=== PATIENT | male | born 1925 | race Caucasian/White ===

== ENCOUNTER 2017-01-10 09:25 | Inpatient (IN) ==
--- NOTE | 2017-01-10 10:11 | EKG Report ---
Stationary ECG Study [facility] ER Test Date: 01/10/2017 9:41:16 AM Pat Name: ROSELINE FRANCO Department: Room: Gender: M It Programmer: : 1925 Requested by: Carlos Molina Order Number: [id number] Jess MD: GARETH GUALLPA Intervals [place] Rate: 69 P: 56 OR: 114 QRS: 78 QRSD: 86 T: 85 QT: 370 QTc: 389 Interpretive Statements SINUS RHYTHM WITH SHORT OR INTERVAL ATYPICAL ECG Electronically Signed On 01-11-17 17:04:30 CDT by GARETH GUALLPA [id number]
[2017-01-10 10:19] LABS: Basophils % 0.2 % (0.0-0.8); Eosinophils % 0.1 % (0.00-10.9); Hematocrit 40.4 VOL% (42.0-52.0); Hemoglobin 13.3 GM/DL (14.0-18.0); Immature Granulocytes % 0.5 %; Immature Granulocytes Absolute 0.05 #; Lymphocytes # 0.8 10*3/uL (1.4-4.0); Lymphocytes % 8.5 % (21.2-54.2); Mean Corpuscular HGB Conc 32.9 GM/DL (32-36); Mean Corpuscular Hemoglobin 31 PG (27-34); Mean Corpuscular Volume 93.7 FL (87-102); Mean Platelet Volume 10.8 FL (9.6-12.0); Monocytes # 0.7 10*3/uL (0.11-0.8); Monocytes % 7.4 % (1.7-12.7); Neutrophils # 7.8 10*3/uL (1.4-7.4); Neutrophils % 83.3 % (38.7-73.9); Platelet Count 216 T/CUMM (130-400); Red Blood Count 4.31 MC/CUMM (3.8-5.5); Red Cell Distribution Width 14.2 % (9.3-17.3); White Blood Count 9.4 T/CUMM (4-12)
[2017-01-10 10:29] LABS: INR 1.1; PT Patient Result 11.7 SECS; Partial Thromboplastin Time 28.3 SECS (0-40)
[2017-01-10] MEDS ORDERED: SODIUM CHLORIDE 0.9% 500 ML IV STA (10:52)
[2017-01-10 11:05] LABS: Albumin 2.9 G/DL (3.4-5.0); Bilirubin,Total 0.6 MG/DL (0.2-1.0); Calcium 8.8 MG/DL (8.5-10.1); Osmolality,Calculated 291.1 MOS/KG (273-304); Potassium 4.4 MMOL/L (3.5-5.1); Total Protein 6.4 G/DL (6.4-8.3)
--- NOTE | 2017-01-10 11:19 | Emergency Department Note ---
Akash Saez Hilary, am scribing for, and in the presence of, Carlos Mcmanus MD 10:06. Marietta Saez Phillip K, MD, personally performed the services described in this documentation, ascribed by Amber Bustos in my presence, and it is both accurate and complete . Arrival - Arrival Chief Complaint: Dizziness Stated Complaint: dizzy ED Nursing Triage Note: pt has been dizzy and sob. pt is being worked up by his heart dr and was told to come here to be admitted Mode of Arrival: Wheelchair Limitations: No Limitations Source: Patient, RN Notes Reviewed Time Seen by Provider: 01/10/17 09:54 - History of Present Illness HPI Narrative: Pt is a 89 y/o male presenting to the ED with c/o dizziness and SOB which onset a few weeks ago and has worsened. Pt reports that his dizziness has been worsening and is worse upon movement. He confirms trouble walking, dizziness, and SOB but denies nausea, vomiting, blacking out or chest pain. Pt talked to Dr. Foster this morning and she told them to come in today to be admitted. No other complaints or problems stated in the ED. patient has had multiple workups over the last 3 weeks for his dizziness including CT head scans and labs. All of which showed no etiology of his dizziness. Patient is tilt positive in the ED. His pressure dropped to 90/46 when we stood him up. His pulse went from 71-89 on standing also Onset (ago): week(s) Consistency: intermittent Severity: moderate Severity scale (1-10): 2 Allergies/Adverse Reactions: Allergies Allergy/AdvReac Type Severity Reaction Status Date / Time No Known Allergies Allergy Unverified 01/09/17 06:23 Home Medications: Home Medications Medication Instructions Recorded Confirmed Type Azelastine Nasal 137 Mcg/[place] 1 spray BOTH NARES BID 01/31/15 01/10/17 History [Astelin Nasal [place]] Fluticasone 50 Mcg Nasal [place] 1 spray BOTH NARES QAM 01/31/15 01/10/17 History [Flonase Nasal [place]] Warfarin Sodium 2.5 mg PO QPM 01/31/15 01/10/17 History Review of System - Review of System 12 point system: reviewed and no additional remarkable complaints except as stated - Review of System Constitutional: Present: other (Dizziness). Absent: fever Respiratory: Present: respiratory distress (SOb) Cardiovascular: Absent: chest pain, syncope Gastrointestinal: Absent: nausea, vomiting Neurological: Present: abnormal gait (trouble walking), other (dizziness). Absent: headache Medical,Surgical,& Family Hx - Medical History Cardio: History of: Cardiac Dysrhythmia (AFIB X1), PVD (DVT) Neurology: No history of: Seizures HEENT: History of: Ear Problem (HEARING AIDS), Eye Problem (GLASSES) Other: History of: Skin Problems (multiple skin cancers) - Surgical History Reproductive Surgeries: Surgical HX of;: Prostate Surgery - Social History Smoking Status: Never smoker Frequency of Alcohol Use: None Type of Drug Use: None Exam Vital Signs: Vital Signs Temperature 97.6 F 01/10/17 09:30 Pulse Rate 81 01/10/17 09:30 Respiratory Rate 18 01/10/17 09:30 Blood Pressure 110/58 01/10/17 09:30 O2 Sat by Pulse Oximetry 98 01/10/17 09:30 - General General appearance: alert, in no apparent distress - Head Head exam: Present: atraumatic, normocephalic - Eye Eye exam: Present: EOMI. Absent: normal appearance, PERRL (Rt pupil doesn't react, chronic) - ENT ENT exam: Present: mucous membranes moist, TM's normal bilaterally. Absent: mucous membranes dry - Neck Neck exam: Present: full ROM, trachea midline. Absent: tenderness - Chest Chest inspection: Present: symmetric chest wall rise. Absent: tenderness - Respiratory Respiratory exam: Present: rales (bibasillar) - Cardiovascular Cardiovascular exam: Present: regular rate, normal rhythm, normal heart sounds. Absent: murmur, rubs, gallop - Abdominal Exam Abdominal exam: Present: soft, normal bowel sounds. Absent: distention, tenderness - Extremities Exam Extremities exam: Present: full ROM, pedal edema (1+ pedal edema bilaterally, mild stenosis to feet bilaterally; somewhat cool). Absent: tenderness - Back Exam Back exam: Present: full ROM. Absent: tenderness - Neurological Exam Neurological exam: Present: alert, oriented X3, CN II-XII intact. Absent: motor sensory deficit - Psychiatric Psychiatric exam: Present: normal affect, normal mood - Skin Skin exam: Present: warm, dry, intact, normal color. Absent: rash Results - Labs CBC & BMP: 06/06/17 10:06 Lab Results: I have reviewed the patients labs Labs: Laboratory Tests 01/10/17 01/10/17 10:06 10:06 WBC 9.4 RBC 4.31 Hgb 13.3 L Hct 40.4 L Neut % (Auto) 83.3 H Lymph % (Auto) 8.5 L Neut # (Auto) 7.8 H Lymph # (Auto) 0.8 L INR 1.1 PT Patient/Control Mix 11.7 Circ Anticoag PTT 28.3 - EKG EKG results: interpreted by ERMD, sinus rhythm (Nonspecific ST-T changes) Disposition Clinical Impression: Orthostatic hypotension, Dizziness Case discussed with: patient, patient's family Disposition: Still a Patient Condition: Guarded Additional Instructions: We will admit to Dr. Holliday for further workup.
[2017-01-10] MEDS ORDERED: ACETAMINOPHEN 325 MG TABLET PO PRN (15:09)
[2017-01-10] MEDS ORDERED: ZALEPLON 5 MG CAPSULE PO PRN (15:09)
[2017-01-10] MEDS ORDERED: MORPHINE 2 MG/1 ML SYRINGE IV PRN (15:09)
[2017-01-10] MEDS ORDERED: DOCUSATE SODIUM 100 MG CAPSULE PO PRN (15:09)
[2017-01-10] MEDS ORDERED: ONDANSETRON 4 MG/2 ML VIAL IV PRN (15:09)
[2017-01-10] MEDS ORDERED: MAGNESIUM SULF RIDER 4 GM in PREMIX 1 EACH IV PRN (15:11)
[2017-01-10] MEDS ORDERED: MAGNESIUM SULF RIDER 2 GM in PREMIX 1 EACH IV PRN (15:11)
[2017-01-10] MEDS ORDERED: SODIUM CHLORIDE 0.45% 1,000 ML IV SCH (15:30)
--- NOTE | 2017-01-10 15:41 | EKG Report ---
Stationary ECG Study 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
[2017-01-10] MEDS: ENOXAPARIN 40 MG/0.4 ML SYRINGE SUBCUT SCH (15:51)
[2017-01-10 20:22] LABS: Apearance,Urine Slightly Hazy (Clear); Bilirubin,Urine Negative (Negative); Blood, Urine Large mg/dL (Negative); Glucose,Urine (UA) Negative (Negative); Ketones,Urine Negative (Negative); Mucus,Urine Occasional /LPF (Occasional); Nitrite,Urine Negative (Negative); Protein,Urine Negative; RBC,Urine 33 /HPF (0-4); Squamous Epithelial Cell,Urine Occasional /HPF (0-10); Urine Color Yellow (Yellow); Urine Specific Gravity 1.012 (1.001-1.035); Urine Urobilinogen < 2.0 EU/DL (0.2-1.0); WBC,Urine 13 /HPF (0-6)
[2017-01-10] MEDS: AZELASTINE NASAL 137 MCG/SPRAY 30 ML BOTTLE BOTH NARES SCH (21:01)
--- NOTE | 2017-01-11 00:11 | Cardiology History & Physical ---
I, Naz Johnson RN, am scribing for, and in the presence of, Davie Holliday MD 00:08. Assessment and Plan - Time spent with patient Time spent with patient: Greater than 30 minutes (Due to assessment, planning, documentation, medication review) (1) Dizziness Status: Acute Assessment and plan: On discussing with the patient, there does seem to be a clear component of his dizziness being related to standing. On exam in the ER his blood pressure did drop. His symptoms are related. It appears A. fib is not the cause of his symptoms--I.e., he has symptoms and is in sinus rhythm This sounds like orthostatic hypotension We'll give a trial of more liberal use of salt, Florinef, and see if he improves Check orthostatic blood pressures Use AVA avery I reviewed his recent workup-carotid u/ sound, negative, echo good LVEF, stress test no obvious ischemia, one equivocal area No symptoms of ischemia so we'll not do a heart catheter at this time I conferred care with Dr. Bess Foster, his primary distribution spec, Gave her input and suggestions. The above was discussed with the patient, his daughter, his grandson. They voice understanding and agree with the plan. Of note, I saw the patient on 01/10 at about 5 PM. This note is being done later. 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 Foster Mr. Mart is a 89 year old male who was seen by Dr. Foster in the emergency department on December 30 of this year for dizziness and indigestion. He had no prior cardiac history. 2 days prior to this he has been seen in the emergency room and was noted to have paroxysmal atrial fibrillation with rate that was not particularly fast. He spontaneously converted to sinus rhythm. He had Holter monitor placed that showed less than 1% of the events were atrial fibrillation. There were occasional PACs and PVCs noted. As an outpatient he had an echocardiogram done January 04 that showed ejection fraction 55%. Carotid ultrasound done the same day showed 1-39% stenosis in the proximal left and right internal carotid arteries. Nuclear stress test done January 05 showed no evidence of ischemia but was suggestive of low to moderate risk for future cardiovascular events. He showed small fixed perfusion abnormality of mild intensity in the apical anterior segment, apical septal segment, and inferior lateral region. Other history includes prostate cancer, respiratory problems, skin cancers, and DVT. He is chronically anticoagulated on Coumadin. This is been held recently as he had lithotripsy yesterday. He is to restart his Coumadin later this week. Surgical history includes prostate surgery, tonsillectomy, hernia repair, bilateral cataracts. He is unsure of any family history except for a sister with cancer. He reports he is a lifetime non- smoker. He reports he has been having dizziness, weakness, and dyspnea on exertion for several months that has progressively gotten worse. This morning he also became short of breath at rest and presented to the emergency department for further evaluation. EKG done today showed sinus rhythm heart rate of 69. His vital signs have been stable. Blood pressure was noted to drop orthostatically , 119/57 lying 90/46 standing. He was given a 500 cc bolus of IV fluid in the emergency department. His creatinine is elevated at 2.00, we will continue to monitor. His INR is 1.1, he is currently off his Coumadin because of lithotripsy. He is scheduled to restart later this week. He is seen today in the emergency department in no acute distress. He is resting on stretcher and denies any dizziness or shortness of breath. He states that he were to get up and try to walk he would be dizzy and weak. He denies any chest pain or palpitations. He is currently in sinus rhythm with heart rates in the 70s. Oxygen is in use via nasal cannula, O2 sat 99%. Blood pressure is currently 117/55. Home Medications Medication Instructions Recorded Confirmed Type Azelastine Nasal 137 Mcg/[place] 1 spray BOTH NARES BID 01/31/15 01/10/17 History [Astelin Nasal [place]] Fluticasone 50 Mcg Nasal [place] 1 spray BOTH NARES QAM 01/31/15 01/10/17 History [Flonase Nasal [place]] Warfarin Sodium 2.5 mg PO QPM 01/31/15 01/10/17 History Clotrimazole/Betamethasone Dip 15 gm TOP BID 01/10/17 01/10/17 History [Clotrimazole/Betamethasone Cream] Tamsulosin [Flomax] 0.4 mg PO BEDTIME 01/10/17 01/10/17 History Allergies Allergy/AdvReac Type Severity Reaction Status Date / Time No Known Allergies Allergy Unverified 01/09/17 06:23 - Constitutional Constitutional: Present: as per HPI - EENT Eyes: Present: loss of vision, requires corrective lense Ears: Present: decreased hearing Nose, mouth and throat: Present: hoarseness, sore throat. Absent: dysphagia, epistaxis, headache(s), neck pain - Cardiovascular Cardiovascular: Present: dyspnea, dyspnea on exertion, lightheadedness. Absent : chest pain at rest, chest pain with activity, diaphoresis, edema, radiating jaw, neck or arm pain, orthopnea, palpitations - Respiratory Respiratory: Present: dyspnea, dyspnea on exertion. Absent: cough, hemoptysis, wheezing - Gastrointestinal Gastrointestinal: Present: constipation. Absent: abdominal pain, diarrhea, hematemesis, hematochezia, melena, nausea, vomiting - Genitourinary Genitourinary: Absent: dysuria, hematuria - Musculoskeletal Musculoskeletal: Present: back pain, limited range of motion, muscle weakness - Neurological Neurological: Present: abnormal gait, dizziness. Absent: confusion, headache(s) , syncope - Psychiatric Psychiatric: Absent: anxiety, depression - Endocrine Endocrine: Present: fatigue - Hematologic/Lymphatic Hematologic/Lymphatic: Present: easy bleeding, easy bruising Medical,Surgical,& Family Hx - Medical History Cardio: History of: Cardiac Dysrhythmia (AFIB ), PVD (DVT) HEENT: History of: Ear Problem (HEARING AIDS), Eye Problem (GLASSES) Other: History of: Cancer (Prostate), Skin Problems (multiple skin cancers) - Surgical History Thoracic Surgeries: Surgical HX of;: Lithotripsy HEENT Surgeries: Surgical HX of: Eye Surgery (Bilateral cataracts), Tonsilectomy & Adenoidectomy Abdominal Surgeries: Surgical HX of: Hernia Repair Reproductive Surgeries: Surgical HX of;: Prostate Surgery - Family History Family History: Reports;: Family Cancer (Sister) - Social History Smoking Status: Never smoker Have you smoked in the last 12 months: No Frequency of Alcohol Use: None Type of Drug Use: None Functional capacity: uses cane/walker Cardiology Physical Exam - Constitutional Vitals: Vital Signs Temp Pulse Resp BP Pulse Ox 97.6 F 71 18 119/57 98 01/10/17 09:40 01/10/17 10:03 01/10/17 09:40 01/10/17 10:03 01/10/17 09:30 Intake and Output 01/09/17 01/10/17 01/10/17 22:59 06:59 14:59 Other: Weight 185 lb Patient Weight 01/11/17 06:59 Weight 185 lb General appearance: normal weight, no acute distress - Head Head exam: Absent: abrasion, contusion - Eye Eye exam: Absent: periorbital swelling, laceration to eyelids Pupils: Absent: constricted, dilated - Neck Neck exam: Absent: tenderness - Respiratory Respiratory exam: Present: rales, other (Oxygen via nasal cannula). Absent: wheezes - Cardiovascular Cardiovascular exam: Present: regular rate and rhythm. Absent: gallop, rubs - GI/Abdominal GI/Abdominal exam: Present: normal bowel sounds. Absent: tenderness, soft - Extremities Exam Extremities exam: Present: edema (Bilateral lower extremities, decreased pulses) - Neurological Exam Neurological exam: Present: alert, oriented X3 - Psychiatric Psychiatric exam: Present: normal affect, normal mood - Skin Skin exam: Present: warm, dry Result/EKG - Labs CBC & BMP: 01/10/17 10:06 01/10/17 10:06 Lab Results: I have reviewed the past 24 hour labs Labs: Laboratory Results - last 24 hr 01/10/17 01/10/17 01/10/17 10:06 10:06 10:06 WBC 9.4 RBC 4.31 Hgb 13.3 L Hct 40.4 L MCV 93.7 MCH 31 MCHC 32.9 RDW 14.2 Plt Count 216 MPV 10.8 Neut % (Auto) 83.3 H Lymph % (Auto) 8.5 L Crawford % (Auto) 7.4 Eos % (Auto) 0.1 Baso % (Auto) 0.2 Neut # (Auto) 7.8 H Lymph # (Auto) 0.8 L Crawford # (Auto) 0.7 Eos # (Auto) 0.0 Baso # (Auto) 0.0 Immature Gran % 0.5 Nucleated RBC % 0.0 Immature Gran # 0.05 Nucleated RBCs # 0.00 INR 1.1 PT Patient/Control Mix 11.7 Circ Anticoag PTT 28.3 Sodium 142 Potassium 4.4 Chloride 108 H Carbon Dioxide 24 Anion Gap 14.4 BUN 30 H Creatinine 2.00 H GFR Calculation 34 BUN/Creatinine Ratio 15.00 Glucose 147 H Calculated Osmolality 291.1 Calcium 8.8 Total Bilirubin 0.60 AST 15 ALT 20 Alkaline Phosphatase 67 B-Natriuretic Peptide Total Protein 6.4 Albumin 2.9 L Globulin 3.5 Albumin/Globulin Ratio 0.8 L 01/10/17 10:06 WBC RBC Hgb Hct MCV MCH MCHC RDW Plt Count MPV Neut % (Auto) Lymph % (Auto) Crawford % (Auto) Eos % (Auto) Baso % (Auto) Neut # (Auto) Lymph # (Auto) Crawford # (Auto) Eos # (Auto) Baso # (Auto) Immature Gran % Nucleated RBC % Immature Gran # Nucleated RBCs # INR PT Patient/Control Mix Circ Anticoag PTT Sodium Potassium Chloride Carbon Dioxide Anion Gap BUN Creatinine GFR Calculation BUN/Creatinine Ratio Glucose Calculated Osmolality Calcium Total Bilirubin AST ALT Alkaline Phosphatase B-Natriuretic Peptide 118 H Total Protein Albumin Globulin Albumin/Globulin Ratio - EKG EKG results: interpreted by me EKG shows: sinus rhythm IMiya Dale, MD, personally performed the services described in this documentation, ascribed by Naz Johnson RN in my presence, and it is both accurate and complete .
[2017-01-11] MEDS: FLUDROCORTISONE 0.1 MG TABLET PO SCH ×3 (00:47→21:09)
[2017-01-11 05:21] LABS: Basophils % 0.3 % (0.0-0.8); Eosinophils % 0.1 % (0.00-10.9); Hematocrit 36.2 VOL% (42.0-52.0); Immature Granulocytes % 0.4 %; Immature Granulocytes Absolute 0.03 #; Lymphocytes # 1.1 10*3/uL (1.4-4.0); Mean Corpuscular HGB Conc 33.1 GM/DL (32-36); Mean Corpuscular Hemoglobin 31 PG (27-34); Mean Corpuscular Volume 93.8 FL (87-102); Mean Platelet Volume 10.8 FL (9.6-12.0); Monocytes # 0.6 10*3/uL (0.11-0.8); Monocytes % 7.9 % (1.7-12.7); Neutrophils # 6.1 10*3/uL (1.4-7.4); Neutrophils % 77.3 % (38.7-73.9); Platelet Count 185 T/CUMM (130-400); Red Blood Count 3.86 MC/CUMM (3.8-5.5); Red Cell Distribution Width 14.3 % (9.3-17.3); White Blood Count 7.9 T/CUMM (4-12)
[2017-01-11 05:35] LABS: INR 1.1; PT Patient Result 11.5 SECS
[2017-01-11 06:05] LABS: Calcium 7.9 MG/DL (8.5-10.1); Magnesium 2.1 MG/DL (1.8-2.4); Osmolality,Calculated 289.1 MOS/KG (273-304); Potassium 4.2 MMOL/L (3.5-5.1)
[2017-01-11 06:11] LABS: Albumin 2.4 G/DL (3.4-5.0); Bilirubin,Total 0.8 MG/DL (0.2-1.0); Calcium 7.9 MG/DL (8.5-10.1); Osmolality,Calculated 289.1 MOS/KG (273-304); Potassium 4.4 MMOL/L (3.5-5.1); Risk Ratio 3.62; Total Protein 5.6 G/DL (6.4-8.3)
--- NOTE | 2017-01-11 07:53 | EKG Report ---
Stationary ECG Study [facility] Test Date: 01/11/2017 7:52:56 AM Pat Name: ROSELINE FRANCO Department: Room: 287 Gender: M Radiology Physician Assistant: LINDA : 1925 Requested by: Diamond Chase Order Number: [id number] Jess MD: GARETH GUALLPA Intervals [place] Rate: 58 P: 41 NM: 128 QRS: 58 QRSD: 90 T: 54 QT: 424 QTc: 420 Interpretive Statements SINUS RHYTHM WITH OCCASIONAL SUPRAVENTRICULAR PREMATURE COMPLEXES INTERPRETATION BASED ON A DEFAULT AGE OF 40 YEARS Electronically Signed On 01-11-17 17:09:49 CDT by GARETH GUALLPA [id number]
[2017-01-11] MEDS: PANTOPRAZOLE 40 MG TABLET PO SCH (08:36)
[2017-01-11] MEDS: CLOTRIMAZOLE/BETAMETHASONE CREAM 15 GM TUBE TOP SCH ×2 (08:42→21:10)
[2017-01-11] MEDS: FLUTICASONE 50 MCG NASAL SPRAY 16 GM BOTTLE BOTH NARES SCH (08:42)
[2017-01-11] MEDS: AZELASTINE NASAL 137 MCG/SPRAY 30 ML BOTTLE BOTH NARES SCH ×2 (08:42→21:10)
[2017-01-11] MEDS: ENOXAPARIN 40 MG/0.4 ML SYRINGE SUBCUT SCH (16:05)
--- NOTE | 2017-01-11 16:47 | Neurology Consult Note ---
History of Present Illness History of present illness: Mr. Mart is a 89 year old right-handed white who was was admitted through the emergency department with dizziness. He had no prior cardiac history. 2 days prior to this he has been seen in the emergency room and was noted to have paroxysmal atrial fibrillation with rate that was not particularly fast. He spontaneously converted to sinus rhythm. He had Holter monitor placed that showed less than 1% of the events were atrial fibrillation. There were occasional PACs and PVCs noted. As an outpatient he had an echocardiogram done January 04 that showed ejection fraction 55%. Carotid ultrasound done the same day showed 1-39% stenosis in the proximal left and right internal carotid arteries. Nuclear stress test done January 05 showed no evidence of ischemia but was suggestive of low to moderate risk for future cardiovascular events. Other history includes prostate cancer, respiratory problems, skin cancers, and DVT. He is chronically anticoagulated on Coumadin. This is been held recently as he had lithotripsy yesterday. He is to restart his Coumadin later this week. Surgical history includes prostate surgery, tonsillectomy, hernia repair, bilateral cataracts. He is unsure of any family history except for a sister with cancer. He reports he is a lifetime non-smoker. He reports he has been having dizziness, weakness, and dyspnea on exertion for several months that has progressively gotten worse. This morning he also became short of breath at rest and presented to the emergency department for further evaluation. EKG done today showed sinus rhythm heart rate of 69. His vital signs have been stable. Blood pressure was noted to drop orthostatically, 119/57 lying 90/46 standing. He was started on Florinef and he seems to be doing better. Home Medications Medication Instructions Recorded Confirmed Type Azelastine Nasal 137 Mcg/[place] 1 spray BOTH NARES BID 01/31/15 01/10/17 History [Astelin Nasal [place]] Fluticasone 50 Mcg Nasal [place] 1 spray BOTH NARES QAM 01/31/15 01/10/17 History [Flonase Nasal [place]] Warfarin Sodium 2.5 mg PO QPM 01/31/15 01/10/17 History Clotrimazole/Betamethasone Dip 15 gm TOP BID 01/10/17 01/10/17 History [Clotrimazole/Betamethasone Cream] Tamsulosin [Flomax] 0.4 mg PO BEDTIME 01/10/17 01/10/17 History Allergies Allergy/AdvReac Type Severity Reaction Status Date / Time No Known Allergies Allergy Unverified 01/09/17 06:23 12 point system: reviewed and no additional remarkable complaints except as stated Medical,Surgical,& Family Hx - Medical History Cardio: History of: Cardiac Dysrhythmia (AFIB ), PVD (DVT) Neurology: No history of: Seizures HEENT: History of: Ear Problem (HEARING AIDS), Eye Problem (GLASSES) Gastrointestinal: History of: GERD, GI Problems (constipation) Musculoskeletal: History of: Musculoskeletal Problems (left hip need replacement ) Other: History of: Cancer (Prostate), Skin Problems (multiple skin cancers) - Surgical History Thoracic Surgeries: Surgical HX of;: Lithotripsy HEENT Surgeries: Surgical HX of: Eye Surgery (Bilateral cataracts), Tonsilectomy & Adenoidectomy Abdominal Surgeries: Surgical HX of: Hernia Repair Reproductive Surgeries: Surgical HX of;: Prostate Surgery - Family History Family History: Reports;: Family Cancer (Sister), Family Heart Disease, Family Hypertension - Social History Smoking Status: Never smoker Frequency of Alcohol Use: None Type of Drug Use: None Exam - Constitutional Vitals: Period Temp Pulse Resp BP Sys/[place] Pulse Ox Last 24 Hr 97.3 F-97.7 F 56-66 18-20 117-139/56-73 93-98 Exam: GENERAL: Patient is in no acute distress. NECK: Neck is supple. There is no JVD. No carotid bruits present. No thyroid masses. CVS: First and second heart sounds are normal. There is no S3 present. Regular rate and rhythm. RESPIRATORY: Lungs are clear to auscultation without any rales or rhonchi. ABDOMEN: Soft and non-tender. Bowel sounds are present. There is no hepatosplenomegaly. EXT: There is no palpable edema. Peripheral pulses are present. Skin: No rashes Central Nervous system: General: Alert, awake and Oriented x 3 Speech: Fluent Comprehension: Intact and normal Facial expressions: Normal Cranial Nerves: CN1/Olfactory: Normal CN II/ Optic: Normal, Visual Pierre unreliable CN III, and : RASHID & EOMI CN V: Normal & intact CN VII: face is symmetric CNVIII: Normal CN XI/X/XI/XII: Intact and Normal Motor: Bulk and Tone is normal. Strength in the right 5/5 Strength in the left 5/5 Sensory: Grossly intact for all the modalities of PP, LT and temp sense Reflexes: 1+ and symmetrical Cerebellar function: Normal finger to nose and heel to peñaloza testing. Toes: Equivocal Gait: Able to get up and walk a few steps. Results - Labs CBC & BMP: 01/11/17 05:10 01/11/17 05:10 Assessment and Plan (1) Dizziness Status: Acute Assessment and plan: This is getting better. This is most likely due to orthostatic hypotension. No clear evidence of posterior circulation pathology. Current Visit: No (2) Orthostatic hypotension Status: Acute Assessment and plan: Continue [facility] for now Thank you for the consult Current Visit: Yes
[2017-01-11] MEDS ORDERED: WARFARIN 2.5 MG TABLET PO SCH (18:00)
[2017-01-11] MEDS: TAMSULOSIN 0.4 MG CAPSULE PO SCH (21:09)
[2017-01-12 05:54] LABS: Basophils % 0.3 % (0.0-0.8); Eosinophils % 0.3 % (0.00-10.9); Hematocrit 34.5 VOL% (42.0-52.0); Hemoglobin 11.3 GM/DL (14.0-18.0); Immature Granulocytes % 0.7 %; Immature Granulocytes Absolute 0.04 #; Mean Corpuscular HGB Conc 32.8 GM/DL (32-36); Mean Corpuscular Hemoglobin 31 PG (27-34); Mean Corpuscular Volume 93.2 FL (87-102); Mean Platelet Volume 11.6 FL (9.6-12.0); Monocytes # 0.7 10*3/uL (0.11-0.8); Neutrophils # 4.2 10*3/uL (1.4-7.4); Neutrophils % 70.7 % (38.7-73.9); Platelet Count 196 T/CUMM (130-400); Red Cell Distribution Width 14.4 % (9.3-17.3); White Blood Count 5.9 T/CUMM (4-12)
[2017-01-12 06:27] LABS: Calcium 8.3 MG/DL (8.5-10.1); Osmolality,Calculated 293.7 MOS/KG (273-304); Potassium 4.1 MMOL/L (3.5-5.1)
[2017-01-12 06:36] LABS: Albumin 2.3 G/DL (3.4-5.0); Bilirubin,Total 0.5 MG/DL (0.2-1.0); Calcium 8.3 MG/DL (8.5-10.1); Osmolality,Calculated 288.1 MOS/KG (273-304); Potassium 3.9 MMOL/L (3.5-5.1); Total Protein 5.1 G/DL (6.4-8.3)
[2017-01-12] MEDS ORDERED: DIGOXIN 0.5 MG/2 ML AMP IV ONE (08:07)
[2017-01-12] MEDS ORDERED: WARFARIN 2.5 MG TABLET PO ONE (08:12)
--- NOTE | 2017-01-12 09:17 | EKG Report ---
Stationary ECG Study [facility] Test Date: 01/12/2017 9:16:34 AM Pat Name: ROSELINE FRANCO Department: Room: 287 Gender: M Site Coordinator: LINDA : 1925 Requested by: Neal Holliday Order Number: [id number] Reading MD: NEAL HOLLIDAY Intervals [place] Rate: 78 P: 52 ND: 136 QRS: 59 QRSD: 90 T: 91 QT: 360 QTc: 393 Interpretive Statements SINUS RHYTHM WITH OCCASIONAL SUPRAVENTRICULAR PREMATURE COMPLEXES POSSIBLE LEFT ATRIAL ENLARGEMENT MODERATE ST DEPRESSION Electronically Signed On 01-12-17 13:49:59 CDT by NEAL HOLLIDAY [email or web address]
[2017-01-12] MEDS: FLUDROCORTISONE 0.1 MG TABLET PO SCH ×2 (09:30→21:31)
[2017-01-12] MEDS: AZELASTINE NASAL 137 MCG/SPRAY 30 ML BOTTLE BOTH NARES SCH ×2 (09:31→21:30)
[2017-01-12] MEDS: FLUTICASONE 50 MCG NASAL SPRAY 16 GM BOTTLE BOTH NARES SCH (09:31)
[2017-01-12] MEDS: PANTOPRAZOLE 40 MG TABLET PO SCH (09:31)
[2017-01-12] MEDS: CLOTRIMAZOLE/BETAMETHASONE CREAM 15 GM TUBE TOP SCH ×2 (09:31→21:31)
[2017-01-12] MEDS: SOTALOL 80 MG TABLET PO SCH ×3 (10:25→17:24)
--- NOTE | 2017-01-12 13:39 | Cardiology Progress Note ---
I, Naz Johnson RN, am scribing for, and in the presence of, Davie Holliday MD 13:39. Assessment and Plan (1) Dizziness Status: Acute Assessment and plan: Initial assessment and plan 01/10/2017: On discussing with the patient, there does seem to be a clear component of his dizziness being related to standing. On exam in the ER his blood pressure did drop. His symptoms are related. It appears A. fib is not the cause of his symptoms--I.e., he has symptoms and is in sinus rhythm This sounds like orthostatic hypotension We'll give a trial of more liberal use of salt, Florinef, and see if he improves Check orthostatic blood pressures Use AVA hose I reviewed his recent workup-carotid u/ sound, negative, echo good LVEF, stress test no obvious ischemia, one equivocal area No symptoms of ischemia so we'll not do a heart catheter at this time I conferred care with Dr. Bess Foster, his primary assistant athletic trainer, Gave her input and suggestions. The above was discussed with the patient, his daughter, his grandson. They voice understanding and agree with the plan. Assessment and plan 01/11/2017: The patient is having slightly less dizziness with standing with the Florinef. I encouraged him to use his AVA hose. He thought it was a bit of a hallie. He will consider it. He was wanting to go home today. I said he is not quite ready. He is willing to stay. Will restart his warfarin today, as his lithotripsy was done Monday I encouraged use a cane or walker to prevent falls. He declines a walker. Further decision on when to be discharged depends upon how he does overnight. Of note, I saw the patient and evaluated him on 01/11/17 at about 1 PM. This note is being finished later. 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 Foster Mr. Mart is seen sitting up in chair this morning. He was started on Florinef morning. He states he got dizzy when he got to the bathroom, but he was not as dizzy as he has been being. He denies any chest pain presently. He did get short of breath while bathing this morning but has had none otherwise. He denies any palpitations. Blood pressure this morning was 139/68. x ray examiner of aircraft currently shows sinus bradycardia with heart rates in the 50s. Labs this morning are unremarkable. Exam (Progress Note) - Constitutional Vitals: Period Temp Pulse Resp BP Sys/[place] Pulse Ox Last 24 Hr 97.3 F-97.9 F 56-82 16-20 113-139/51-78 93-99 Exam: General appearance: normal weight, no acute distress - Head Head exam: Absent: abrasion, contusion - Eye Eye exam: Absent: periorbital swelling, laceration to eyelids Pupils: Absent: constricted, dilated - Neck Neck exam: Absent: tenderness - Respiratory Respiratory exam: Present: rales, other (Oxygen via nasal cannula). Absent: wheezes - Cardiovascular Cardiovascular exam: Present: regular rate and rhythm. Absent: gallop, rubs - GI/Abdominal GI/Abdominal exam: Present: normal bowel sounds. Absent: tenderness, soft - Extremities Exam Extremities exam: Present: edema (Bilateral lower extremities, decreased pulses) - Neurological Exam Neurological exam: Present: alert, oriented X3 - Psychiatric Psychiatric exam: Present: normal affect, normal mood - Skin Skin exam: Present: warm, dry Result/EKG - Labs CBC & BMP: 01/12/17 04:08 01/12/17 04:08 Lab Results: I have reviewed the past 24 hour labs Labs: Laboratory Results - last 24 hr 01/10/17 01/10/17 01/10/17 10:06 10:06 10:06 WBC RBC Hgb Hct MCV MCH MCHC RDW Plt Count MPV Neut % (Auto) Lymph % (Auto) [place] % (Auto) Eos % (Auto) Baso % (Auto) Neut # (Auto) Lymph # (Auto) [place] # (Auto) Eos # (Auto) Baso # (Auto) Immature Gran % Nucleated RBC % Immature Gran # Nucleated RBCs # INR PT Patient/Control Mix Sodium 142 Potassium 4.4 Chloride 108 H Carbon Dioxide 24 Anion Gap 14.4 BUN 30 H Creatinine 2.00 H GFR Calculation 34 BUN/Creatinine Ratio 15.00 Glucose 147 H Calculated Osmolality 291.1 Calcium 8.8 Magnesium Total Bilirubin 0.60 AST 15 ALT 20 Alkaline Phosphatase 67 B-Natriuretic Peptide 118 H Total Protein 6.4 Albumin 2.9 L Globulin 3.5 Albumin/Globulin Ratio 0.8 L Triglycerides Cholesterol LDL Cholesterol VLDL Cholesterol HDL Cholesterol Heart Disease Risk Ratio TSH 3rd Generation 2.470 Urine Color Urine Appearance Urine pH Ur Specific [place] Urine Protein Urine Glucose (UA) Urine Ketones Urine Blood Urine Nitrate Urine Bilirubin Urine Urobilinogen Urine Leukocytes Urine RBC Urine WBC Ur Squamous Epith Cells Urine Mucus Ur Culture Indicated? 01/10/17 01/11/17 01/11/17 19:48 05:10 05:10 WBC 7.9 RBC 3.86 Hgb 12.0 L Hct 36.2 L MCV 93.8 MCH 31 MCHC 33.1 RDW 14.3 Plt Count 185 MPV 10.8 Neut % (Auto) 77.3 H Lymph % (Auto) 14.0 L [place] % (Auto) 7.9 Eos % (Auto) 0.1 Baso % (Auto) 0.3 Neut # (Auto) 6.1 Lymph # (Auto) 1.1 L [place] # (Auto) 0.6 Eos # (Auto) 0.0 Baso # (Auto) 0.0 Immature Gran % 0.4 Nucleated RBC % 0.0 Immature Gran # 0.03 Nucleated RBCs # 0.00 INR PT Patient/Control Mix Sodium 142 Potassium 4.2 Chloride 109 H Carbon Dioxide 23 Anion Gap 14.2 BUN 31 H Creatinine 1.80 H GFR Calculation 39 BUN/Creatinine Ratio 17.00 Glucose 106 Calculated Osmolality 289.1 Calcium 7.9 L Magnesium 2.1 Total Bilirubin AST ALT Alkaline Phosphatase B-Natriuretic Peptide Total Protein Albumin Globulin Albumin/Globulin Ratio Triglycerides Cholesterol LDL Cholesterol VLDL Cholesterol HDL Cholesterol Heart Disease Risk Ratio TSH 3rd Generation Urine Color Yellow Urine Appearance Slightly hazy Urine pH 5.0 Ur Specific [place] 1.012 Urine Protein Negative Urine Glucose (UA) Negative Urine Ketones Negative Urine Blood Large Urine Nitrate Negative Urine Bilirubin Negative Urine Urobilinogen < 2.0 H Urine Leukocytes Moderate H Urine RBC 33 Urine WBC 13 Ur Squamous Epith Cells Occasional Urine Mucus Occasional Ur Culture Indicated? Results to follow 01/11/17 01/11/17 05:10 05:10 WBC RBC Hgb Hct MCV MCH MCHC RDW Plt Count MPV Neut % (Auto) Lymph % (Auto) [place] % (Auto) Eos % (Auto) Baso % (Auto) Neut # (Auto) Lymph # (Auto) [place] # (Auto) Eos # (Auto) Baso # (Auto) Immature Gran % Nucleated RBC % Immature Gran # Nucleated RBCs # INR 1.1 PT Patient/Control Mix 11.5 Sodium 142 Potassium 4.4 Chloride 109 H Carbon Dioxide 24 Anion Gap 13.4 BUN 31 H Creatinine 1.80 H GFR Calculation 39 BUN/Creatinine Ratio 17.00 Glucose 107 H Calculated Osmolality 289.1 Calcium 7.9 L Magnesium Total Bilirubin 0.80 AST 13 ALT 18 Alkaline Phosphatase 54 B-Natriuretic Peptide Total Protein 5.6 L Albumin 2.4 L Globulin 3.2 Albumin/Globulin Ratio 0.7 L Triglycerides 100 Cholesterol 163 LDL Cholesterol 98.0 VLDL Cholesterol 20.0 HDL Cholesterol 45 Heart Disease Risk Ratio 3.62 TSH 3rd Generation Urine Color Urine Appearance Urine pH Ur Specific [place] Urine Protein Urine Glucose (UA) Urine Ketones Urine Blood Urine Nitrate Urine Bilirubin Urine Urobilinogen Urine Leukocytes Urine RBC Urine WBC Ur Squamous Epith Cells Urine Mucus Ur Culture Indicated? - EKG EKG results: interpreted by me EKG shows: bradycardia, sinus rhythm IMiya Dale, MD, personally performed the services described in this documentation, ascribed by Naz Johnson RN in my presence, and it is both accurate and complete 339 .
[2017-01-12] MEDS: ENOXAPARIN 40 MG/0.4 ML SYRINGE SUBCUT SCH (15:48)
[2017-01-12] MEDS: TAMSULOSIN 0.4 MG CAPSULE PO SCH (21:31)
--- NOTE | 2017-01-12 23:37 | Cardiology Progress Note ---
Assessment and Plan (1) Dizziness Status: Acute Assessment and plan: Initial assessment and plan 01/10/2017: On discussing with the patient, there does seem to be a clear component of his dizziness being related to standing. On exam in the ER his blood pressure did drop. His symptoms are related. It appears A. fib is not the cause of his symptoms--I.e., he has symptoms and is in sinus rhythm This sounds like orthostatic hypotension We'll give a trial of more liberal use of salt, Florinef, and see if he improves Check orthostatic blood pressures Use AVA hose I reviewed his recent workup-carotid u/ sound, negative, echo good LVEF, stress test no obvious ischemia, one equivocal area No symptoms of ischemia so we'll not do a heart catheter at this time I conferred care with Dr. Bess Foster, his primary telephone technician, Gave her input and suggestions. The above was discussed with the patient, his daughter, his grandson. They voice understanding and agree with the plan. Assessment and plan 01/11/2017: The patient is having slightly less dizziness with standing with the Florinef. I encouraged him to use his AVA hose. He thought it was a bit of a hallie. He will consider it. He was wanting to go home today. I said he is not quite ready. He is willing to stay. Will restart his warfarin today, as his lithotripsy was done Monday I encouraged use a cane or walker to prevent falls. He declines a walker. Further decision on when to be discharged depends upon how he does overnight. Of note, I saw the patient and evaluated him on 01/11/17 at about 1 PM. This note is being finished later. 01/12/17 Had some SVT this morning His dizziness has been better on the new medication Electrolytes, magnesium, and TSH, recent, normal We'll add a low-dose of sotalol with hold parameters The above was discussed with the patient and his daughter. 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 This morning he felt "funny" as his heart rate was more rapid. Overall his dizzy episodes of been less. Exam (Progress Note) - Constitutional Vitals: Period Temp Pulse Resp BP Sys/[place] Pulse Ox Last 24 Hr 96.9 F-97.8 F 57-136 16-20 101-140/51-75 92-95 Exam: General appearance: normal weight, no acute distress - Head Head exam: Absent: abrasion, contusion - Eye Eye exam: Absent: periorbital swelling, laceration to eyelids Pupils: Absent: constricted, dilated - Neck Neck exam: Absent: tenderness - Respiratory Respiratory exam: Present: rales, other (Oxygen via nasal cannula). Absent: wheezes - Cardiovascular Cardiovascular exam: Present: regular rate and rhythm. Absent: gallop, rubs - GI/Abdominal GI/Abdominal exam: Present: normal bowel sounds. Absent: tenderness, soft - Extremities Exam Extremities exam: Present: edema (Bilateral lower extremities, decreased pulses) - Neurological Exam Neurological exam: Present: alert, oriented X3 - Psychiatric Psychiatric exam: Present: normal affect, normal mood - Skin Skin exam: Present: warm, dry Result/EKG - Labs CBC & BMP: 01/12/17 04:08 01/12/17 04:08 Labs: Laboratory Results - last 24 hr 01/12/17 01/12/17 01/12/17 04:08 04:08 04:08 WBC 5.9 RBC 3.70 L Hgb 11.3 L Hct 34.5 L MCV 93.2 MCH 31 MCHC 32.8 RDW 14.4 Plt Count 196 MPV 11.6 Neut % (Auto) 70.7 Lymph % (Auto) 17.0 L [place] % (Auto) 11.0 Eos % (Auto) 0.3 Baso % (Auto) 0.3 Neut # (Auto) 4.2 Lymph # (Auto) 1.0 L [place] # (Auto) 0.7 Eos # (Auto) 0.0 Baso # (Auto) 0.0 Immature Gran % 0.7 Nucleated RBC % 0.0 Immature Gran # 0.04 Nucleated RBCs # 0.00 Sodium 145 142 Potassium 4.1 3.9 Chloride 112 H 109 H Carbon Dioxide 23 23 Anion Gap 14.1 13.9 BUN 30 H 30 H Creatinine 1.70 H 1.60 H GFR Calculation 42 45 BUN/Creatinine Ratio 17.00 18.00 Glucose 95 94 Calculated Osmolality 293.7 288.1 Calcium 8.3 L 8.3 L Magnesium 2.0 Total Bilirubin 0.50 AST 15 ALT 17 Alkaline Phosphatase 52 Total Protein 5.1 L Albumin 2.3 L Globulin 2.8 Albumin/Globulin Ratio 0.8 L
[2017-01-13] MEDS: SOTALOL 80 MG TABLET PO SCH ×4 (00:26→21:03)
[2017-01-13 04:15] LABS: Basophils % 0.3 % (0.0-0.8); Eosinophils % 0.2 % (0.00-10.9); Hematocrit 34.8 VOL% (42.0-52.0); Hemoglobin 11.5 GM/DL (14.0-18.0); Immature Granulocytes % 0.7 %; Immature Granulocytes Absolute 0.04 #; Lymphocytes # 1.1 10*3/uL (1.4-4.0); Lymphocytes % 18.1 % (21.2-54.2); Mean Corpuscular Hemoglobin 31 PG (27-34); Mean Corpuscular Volume 92.3 FL (87-102); Mean Platelet Volume 11.3 FL (9.6-12.0); Monocytes # 0.6 10*3/uL (0.11-0.8); Monocytes % 10.6 % (1.7-12.7); Neutrophils # 4.2 10*3/uL (1.4-7.4); Neutrophils % 70.1 % (38.7-73.9); Platelet Count 193 T/CUMM (130-400); Red Blood Count 3.77 MC/CUMM (3.8-5.5); Red Cell Distribution Width 14.2 % (9.3-17.3)
[2017-01-13 04:42] LABS: Calcium 8.4 MG/DL (8.5-10.1); Osmolality,Calculated 297.6 MOS/KG (273-304); Potassium 3.8 MMOL/L (3.5-5.1)
[2017-01-13 04:45] LABS: Albumin 2.5 G/DL (3.4-5.0); Calcium 8.2 MG/DL (8.5-10.1); Osmolality,Calculated 293.8 MOS/KG (273-304); Potassium 3.7 MMOL/L (3.5-5.1); Total Protein 5.1 G/DL (6.4-8.3)
[2017-01-13] MEDS: PANTOPRAZOLE 40 MG TABLET PO SCH (08:08)
[2017-01-13] MEDS: FLUDROCORTISONE 0.1 MG TABLET PO SCH ×2 (08:08→21:03)
[2017-01-13] MEDS: AZELASTINE NASAL 137 MCG/SPRAY 30 ML BOTTLE BOTH NARES SCH ×2 (08:10→21:06)
[2017-01-13] MEDS: FLUTICASONE 50 MCG NASAL SPRAY 16 GM BOTTLE BOTH NARES SCH (08:10)
[2017-01-13] MEDS: CLOTRIMAZOLE/BETAMETHASONE CREAM 15 GM TUBE TOP SCH ×2 (08:11→21:05)
[2017-01-13 12:20] LABS: Bilirubin,Total 0.6 MG/DL (0.2-1.0)
[2017-01-13] MEDS: ENOXAPARIN 40 MG/0.4 ML SYRINGE SUBCUT SCH (15:41)
[2017-01-13] MEDS ORDERED: WARFARIN 2.5 MG TABLET PO SCH (18:00)
[2017-01-13] MEDS: TAMSULOSIN 0.4 MG CAPSULE PO SCH (21:03)
--- NOTE | 2017-01-13 21:12 | Cardiology Progress Note ---
I, Naz Johsnon RN, am scribing for, and in the presence of, Davie Holliday MD 21:11. Assessment and Plan (1) Dizziness Status: Acute Assessment and plan: Initial assessment and plan 01/10/2017: On discussing with the patient, there does seem to be a clear component of his dizziness being related to standing. On exam in the ER his blood pressure did drop. His symptoms are related. It appears A. fib is not the cause of his symptoms--I.e., he has symptoms and is in sinus rhythm This sounds like orthostatic hypotension We'll give a trial of more liberal use of salt, Florinef, and see if he improves Check orthostatic blood pressures Use AVA hose I reviewed his recent workup-carotid u/ sound, negative, echo good LVEF, stress test no obvious ischemia, one equivocal area No symptoms of ischemia so we'll not do a heart catheter at this time I conferred care with Dr. Bess Foster, his primary vice president financial, Gave her input and suggestions. The above was discussed with the patient, his daughter, his grandson. They voice understanding and agree with the plan. Assessment and plan 01/11/2017: The patient is having slightly less dizziness with standing with the Florinef. I encouraged him to use his AVA hose. He thought it was a bit of a hallie. He will consider it. He was wanting to go home today. I said he is not quite ready. He is willing to stay. Will restart his warfarin today, as his lithotripsy was done Monday I encouraged use a cane or walker to prevent falls. He declines a walker. Further decision on when to be discharged depends upon how he does overnight. Assessment and plan 01/12/2017: Had some SVT this morning His dizziness has been better on the new medication Electrolytes, magnesium, and TSH, recent, normal We'll add a low-dose of sotalol with hold parameters The above was discussed with the patient and his daughter. Assessment and plan 01/13/2017: The patient remains in sinus rhythm on the sotalol No significant orthostasis Bradycardia with sotalol. Will reduce sotalol to 40 mg p.o. twice daily. Hold sotalol if pulse less than 50 at the dose Possible discharge tomorrow if he remains stable Current Visit: Yes (2) Orthostatic hypotension Status: Acute Current Visit: Yes (3) Shortness of breath Status: Chronic Current Visit: Yes (4) History of DVT in adulthood Status: Chronic Current Visit: No (5) Chronic anticoagulation Status: Chronic Current Visit: Yes (6) Paroxysmal atrial fibrillation Status: Chronic Current Visit: Yes Cardiology - PN: Subj Interval history: Site Leasing Agent: Dr. Foster Mr. Mart is seen sitting up in chair this morning. He states he got dizzy when he got to the bathroom, but it is improved. He denies any chest pain, shortness of breath, or palpitations. Vital signs been stable with blood pressure this morning 120/60. He had SVT yesterday morning and was started on sotalol 40 mg every 6 hours. monitoring specialist currently shows sinus bradycardia with heart rates in the 50s. Warfarin was restarted yesterday. We will check INR tomorrow morning. Exam (Progress Note) - Constitutional Vitals: Period Temp Pulse Resp BP Sys/[place] Pulse Ox Last 24 Hr 97.4 F-99.0 F 51-67 16-18 106-139/53-63 92-98 Exam: General appearance: normal weight, no acute distress - Head Head exam: Absent: abrasion, contusion - Eye Eye exam: Absent: periorbital swelling, laceration to eyelids Pupils: Absent: constricted, dilated - Neck Neck exam: Absent: tenderness - Respiratory Respiratory exam: Present: Clear to auscultation, other (Oxygen via nasal cannula). Absent: wheezes - Cardiovascular Cardiovascular exam: Present: regular rate and rhythm, bradycardic. Absent: gallop, rubs - GI/Abdominal GI/Abdominal exam: Present: normal bowel sounds. Absent: tenderness, soft - Extremities Exam Extremities exam: Present: edema (Bilateral lower extremities, decreased pulses) - Neurological Exam Neurological exam: Present: alert, oriented X3 - Psychiatric Psychiatric exam: Present: normal affect, normal mood - Skin Skin exam: Present: warm, dry Result/EKG - Labs CBC & BMP: 01/13/17 03:29 01/13/17 03:29 Lab Results: I have reviewed the past 24 hour labs Labs: Laboratory Results - last 24 hr 01/13/17 01/13/17 01/13/17 03:29 03:29 03:29 WBC 6.0 RBC 3.77 L Hgb 11.5 L Hct 34.8 L MCV 92.3 MCH 31 MCHC 33.0 RDW 14.2 Plt Count 193 MPV 11.3 Neut % (Auto) 70.1 Lymph % (Auto) 18.1 L [place] % (Auto) 10.6 Eos % (Auto) 0.2 Baso % (Auto) 0.3 Neut # (Auto) 4.2 Lymph # (Auto) 1.1 L [place] # (Auto) 0.6 Eos # (Auto) 0.0 Baso # (Auto) 0.0 Immature Gran % 0.7 Nucleated RBC % 0.0 Immature Gran # 0.04 Nucleated RBCs # 0.00 Sodium 146 H 144 Potassium 3.8 3.7 Chloride 111 H 111 H Carbon Dioxide 24 24 Anion Gap 14.8 12.7 BUN 35 H 36 H Creatinine 1.70 H 1.70 H GFR Calculation 42 42 BUN/Creatinine Ratio 20.00 21.00 H Glucose 96 98 Calculated Osmolality 297.6 293.8 Calcium 8.4 L 8.2 L Magnesium 2.0 Total Bilirubin 0.60 AST 15 ALT 16 Alkaline Phosphatase 53 Total Protein 5.1 L Albumin 2.5 L Globulin 2.6 Albumin/Globulin Ratio 0.9 L - EKG EKG results: interpreted by me EKG shows: bradycardia, sinus rhythm I, Davie Holliday MD, personally performed the services described in this documentation, ascribed by Naz Johnson RN in my presence, and it is both accurate and complete .
[2017-01-14 05:07] LABS: Basophils % 0.7 % (0.0-0.8); Eosinophils % 0.4 % (0.00-10.9); Hematocrit 33.2 VOL% (42.0-52.0); Hemoglobin 10.8 GM/DL (14.0-18.0); Immature Granulocytes % 0.6 %; Immature Granulocytes Absolute 0.03 #; Lymphocytes # 1.2 10*3/uL (1.4-4.0); Mean Corpuscular HGB Conc 32.5 GM/DL (32-36); Mean Corpuscular Hemoglobin 30 PG (27-34); Mean Platelet Volume 11.2 FL (9.6-12.0); Monocytes # 0.7 10*3/uL (0.11-0.8); Monocytes % 12.6 % (1.7-12.7); Neutrophils # 3.4 10*3/uL (1.4-7.4); Neutrophils % 62.7 % (38.7-73.9); Platelet Count 183 T/CUMM (130-400); Red Blood Count 3.57 MC/CUMM (3.8-5.5); Red Cell Distribution Width 14.2 % (9.3-17.3); White Blood Count 5.4 T/CUMM (4-12)
[2017-01-14 05:15] LABS: PT Patient Result 11.1 SECS
[2017-01-14 05:41] LABS: Calcium 8.2 MG/DL (8.5-10.1); Magnesium 2.1 MG/DL (1.8-2.4); Osmolality,Calculated 289.1 MOS/KG (273-304); Potassium 3.8 MMOL/L (3.5-5.1)
[2017-01-14] MEDS: SOTALOL 80 MG TABLET PO SCH (08:57)
[2017-01-14] MEDS: PANTOPRAZOLE 40 MG TABLET PO SCH (08:58)
[2017-01-14] MEDS: FLUDROCORTISONE 0.1 MG TABLET PO SCH (08:58)
[2017-01-14] MEDS: AZELASTINE NASAL 137 MCG/SPRAY 30 ML BOTTLE BOTH NARES SCH (09:00)
[2017-01-14] MEDS: CLOTRIMAZOLE/BETAMETHASONE CREAM 15 GM TUBE TOP SCH (09:01)
[2017-01-14] MEDS: FLUTICASONE 50 MCG NASAL SPRAY 16 GM BOTTLE BOTH NARES SCH (09:01)
[2017-01-14 11:51] VITALS: BP 99/56
--- NOTE | 2017-01-14 12:34 | Discharge Summary ---
Hospital Course - Hospital Course Hospital Course: SLEEPER CUTTER: DR. FOSTER Patient was admitted January 10, 2017 with complaints of dizziness, weakness and dyspnea on exertion. He was orthostatic and was fluid resuscitated in the emergency department. He had been off of his Coumadin due to lithotripsy. Recent workup in prior hospitalization was reviewed. Carotid ultrasound was negative, echocardiogram was satisfactory, stress test revealed no obvious ischemia (1 equivocal area). 2 days prior to this admission, patient was seen in the emergency department was noted to have atrial fibrillation which spontaneously converted to normal sinus rhythm. He wore a Holter monitor which revealed less than 1% of the events were atrial fibrillation. He is having no chest discomfort during this hospital stay. Neurology was consulted and agreed with treatment of Florinef. After starting this medication, his dizziness is much improved. He did have SVT during the hospital stay but this improved with initiation of sotalol. This morning, he is anxious for release home and he is being discharged home in stable condition. Dr. Holliday is seen patient this morning and is agreeable for discharge. He will be given a 2-3 week follow-up with Dr. Bess Foster. At that visit the following will be obtained: EKG. He will have his INR checked in 1 week (January 19, 2017) with Dr. Bess Foster office. Discharge medications include the following: Florinef 0.1 mg 1 p.o. twice daily Warfarin 2.5 mg orally each evening Sotalol 40 mg orally twice daily (has chronic renal failure therefore using a low dose) He will resume his other home medications - Time spent with patient Time with patient DS: Greater than 30 minutes Diagnosis - Discharge Diagnosis (1) SVT (supraventricular tachycardia) Status: Resolved (2) Renal insufficiency Status: Chronic (3) Dizziness Status: Resolved (4) Orthostatic hypotension Status: Resolved (5) Dizziness Status: Resolved (6) Chronic anticoagulation Status: Chronic (7) Paroxysmal atrial fibrillation Status: Chronic Specialty Discharge - Follow Up or Referrals Follow up with: Bess Foster MD [Physician] - (Needs PT/INR January at [facility]. Also, appointment Dr. Foster 2-3 weeks with EKG) Discharge Plan - Discharge Data Disposition: Disch To Home/Self Care Condition at Discharge: Stable Discharge Diet: heart healthy Activity: resume usual activities as tolerated Hygiene: no restrictions Weight Bearing at Discharge: full weight bearing Driving: not until seen by doctor Contact your physician if you experience:: fever over 101, Difficulty voiding, Redness or swelling, Nausea/Vomiting, Shortness of breath, Bleeding, pain uncontrolled by pain medications - Discharge Medications New Fludrocortisone [Florinef] 0.1 mg PO BID #60 tablet Sotalol [Betapace] 40 mg PO BID #60 tablet Continue Warfarin Sodium 2.5 mg PO QPM Fluticasone 50 Mcg Nasal Mobile [Flonase Nasal Mobile] 1 spray BOTH NARES QAM Azelastine Nasal 137 Mcg/Mobile [Astelin Nasal Mobile] 1 spray BOTH NARES BID Tamsulosin [Flomax] 0.4 mg PO BEDTIME Clotrimazole/Betamethasone Dip [Clotrimazole/Betamethasone Cream] 15 gm TOP BID - Follow Up or Referral - Forms/Instructions Exam - Constitutional Vitals: Period Temp Pulse Resp BP Sys/[place] Pulse Ox Last 24 Hr 97.2 F-98.5 F 49-68 16-20 99-129/51-64 94-98 Exam: General: [Appears well with no apparent distress.] [Pleasant and cooperative. ] [Appears comfortable.] HEENT: [PERRL, normocephalic, atraumatic. Mucous membranes moist. No jaundice noted. Conjunctiva moist and clear, sclerae anicteric] Neck: No JVD/HJR, no thyromegaly or lymphadenopathy noted. No carotid bruit appreciated Cardiac: [Regular rate and rhythm.] [No murmur rub or gallop.] Lungs: [Clear to auscultation without accessory muscle use to assist the respiratory pattern.] Not requiring oxygen Abdomen: Soft, bowel sounds normoactive. Nontender and nondistended. No abdominal bruit or thrill noted. No masses noted. Musculoskeletal: No fluid collection. Decreased range of motion is noted. Extremities: No clubbing, cyanosis noted. [ No edema noted.] Upper extremity pulses 2+. Lower extremity pulses 2+. Capillary refill less than 3 seconds. Skin: No unusual lesions or rashes. No skin breakdown appreciated. Neuro: Awake, alert and oriented 3. Moves all extremities well without hemiparesis or paralysis. No essential tremor is appreciated. Discharge Results Procedures and tests throughout hospitalization: Pending Orders 01/15/17 04:00 Basic Metabolic Panel w/Mg IN AM CBC [Comp Blood Count Auto Diff] IN AM Prothrombin Time INR IN AM 01/16/17 04:00 Basic Metabolic Panel w/Mg IN AM CBC [Comp Blood Count Auto Diff] IN AM Prothrombin Time INR IN AM Labs on day of discharge: Labs from last 24 hours 01/14/17 01/14/17 01/14/17 04:30 04:30 04:30 WBC 5.4 RBC 3.57 L Hgb 10.8 L Hct 33.2 L MCV 93.0 MCH 30 MCHC 32.5 RDW 14.2 Plt Count 183 MPV 11.2 Neut % (Auto) 62.7 Lymph % (Auto) 23.0 [place] % (Auto) 12.6 Eos % (Auto) 0.4 Baso % (Auto) 0.7 Neut # (Auto) 3.4 Lymph # (Auto) 1.2 L [place] # (Auto) 0.7 Eos # (Auto) 0.0 Baso # (Auto) 0.0 Immature Gran % 0.6 Nucleated RBC % 0.0 Immature Gran # 0.03 Nucleated RBCs # 0.00 INR 1.0 PT Patient/Control Mix 11.1 Sodium 142 Potassium 3.8 Chloride 109 H Carbon Dioxide 24 Anion Gap 12.8 BUN 32 H Creatinine 1.70 H GFR Calculation 42 BUN/Creatinine Ratio 18.00 Glucose 90 Calculated Osmolality 289.1 Calcium 8.2 L Magnesium 2.1 - Imaging and Cardiology Cardiology Procedure: report reviewed by me DS: Provider Date of admission: 01/10/17 11:19 Primary care physician: Chester Gordillo, Attending physician on admission: Davie Holliday MD Discharging clinician: Diamond Yusuf NP Expected date of discharge: 01/14/17
== END 2017-01-14 13:55 | disposition home or self-care (01) | DRG 312 ==
LOC: N.EDINP 09:25 → N.ED 09:25 → N.2E 13:38 → N.TELEN 13:38 → UNDODISOB 01-14 13:55
PROVIDERS: ADMIT Internal Medicine Cardiovascular Disease; ATTEND Internal Medicine Cardiovascular Disease

== ENCOUNTER 2017-01-26 13:35 | Inpatient (IN) ==
[2017-01-26] MEDS ORDERED: MEPERIDINE 25 MG/1 ML VIAL IM PRN (16:44)
[2017-01-26] MEDS ORDERED: PROMETHAZINE 25 MG/1 ML VIAL IM PRN (16:45)
[2017-01-26] MEDS ORDERED: LEVOFLOXACIN INJ 500 MG in PREMIX 1 EACH IV SCH (17:00)
[2017-01-26 17:57] LABS: Basophils % 0.4 % (0.0-0.8); Eosinophils % 0.4 % (0.00-10.9); Hemoglobin 12.5 GM/DL (14.0-18.0); Immature Granulocytes % 0.3 %; Immature Granulocytes Absolute 0.02 #; Lymphocytes # 1.5 10*3/uL (1.4-4.0); Lymphocytes % 20.7 % (21.2-54.2); Mean Corpuscular HGB Conc 32.9 GM/DL (32-36); Mean Corpuscular Hemoglobin 31 PG (27-34); Mean Corpuscular Volume 93.1 FL (87-102); Mean Platelet Volume 11.4 FL (9.6-12.0); Monocytes # 0.9 10*3/uL (0.11-0.8); Monocytes % 12.1 % (1.7-12.7); Neutrophils # 4.8 10*3/uL (1.4-7.4); Neutrophils % 66.1 % (38.7-73.9); Platelet Count 222 T/CUMM (130-400); Red Blood Count 4.08 MC/CUMM (3.8-5.5); Red Cell Distribution Width 13.6 % (9.3-17.3); White Blood Count 7.3 T/CUMM (4-12)
[2017-01-26] MEDS ORDERED: SODIUM CHLORIDE 0.45% 1,000 ML IV SCH (18:00)
[2017-01-26] MEDS ORDERED: WARFARIN 2.5 MG TABLET PO SCH ×2 (18:00→18:22)
--- NOTE | 2017-01-26 18:00 | EKG Report ---
Stationary ECG Study [facility] Test Date: 01/26/2017 6:00:31 PM Pat Name: ROSELINE FRANCO Department: Room: [facility] Gender: M Mannequin Mold Maker: DOLORES,ROAD ENGINEER : 1925 Requested by: Mark Higginbotham Order Number: [id number] Reading MD: CHIP BARRIOS Intervals [place] Rate: 54 P: 35 MD: 135 QRS: 50 QRSD: 89 T: 51 QT: 443 QTc: 430 Interpretive Statements SINUS BRADYCARDIA Electronically Signed On 01-27-17 14:23:08 CDT by CHIP BARRIOS [email or web address]
[2017-01-26 18:08] LABS: INR 1.6; PT Patient Result 16.9 SECS; Partial Thromboplastin Time 29.8 SECS (0-40)
--- NOTE | 2017-01-26 18:09 | Urology History & Physical ---
Assessment and Plan - Time spent with patient Time spent with patient: Less than 30 minutes (1) Dizziness Status: Resolved Current Visit: No (2) Shortness of breath Status: Chronic Assessment and plan: I am not sure exactly what is going on. But he call my office complaining of shortness of breath and dizziness. My fear was that he was getting septic from these ureteral stones that he has but he does not appear toxic. He says that he saw Dr. Gordillo had a cold and was placed on antibiotics. I therefore put him in the hospital we will check her studies. I will consult the hospitalist and consult Dr. Gordillo. Current Visit: No 12 point system: reviewed and no additional remarkable complaints except as stated - Constitutional Constitutional: Present: lethargy, malaise, other (Weakness) History of Present Illness Chief complaint: Not feeling well History of present illness: Mr. Mart is a 89 year old male who I saw in the office 4 days ago after lithotripsy. Stone is fragmented. He has multiple distal stones and then still a fairly large 8 or 9 mm fragment proximal to the other smaller stones. His daughter called the office and stated he is not feeling well. My fear was that he was potentially getting septic from these ureteral stones and I sent him the hospital to be admission. Now that I seen in the hospital I was unaware that he seen Dr. Jama Godrillo of the same day I saw him and treated him for a cold. He is placed him on antibiotics and treating him for respiratory upper respiratory infection. He denies any pain anywhere denies any chest pain but he does get short of breath and has dyspnea on exertion. He has chronic edema both legs right greater than left from DVT in the past and that is why he is on his Coumadin. The blood work that his back reveals a white count is normal with a normal shift. He does not have any fever and he does not be appear toxic. He has been on azithromycin and Cipro. At this point I am going to start some IV fluids. I will check a chest x-ray and EKG. I will consult the hospitalist segundo and Dr. Gordillo in the morning. Home Medications Medication Instructions Recorded Confirmed Type Azelastine Nasal 137 Mcg/[place] 2 spray BOTH NARES BID 01/31/15 01/26/17 History [Astelin Nasal [place]] Fluticasone 50 Mcg Nasal [place] 2 spray BOTH NARES QAM 01/31/15 01/26/17 History [Flonase Nasal [place]] Warfarin Sodium 2.5 mg PO QPM 01/31/15 01/26/17 History Clotrimazole/Betamethasone Dip 15 gm TOP BID 01/10/17 01/26/17 History [Clotrimazole/Betamethasone Cream] Tamsulosin [Flomax] 0.4 mg PO BEDTIME 01/10/17 01/26/17 History Sotalol [Betapace] 40 mg PO BID #60 tablet 01/14/17 01/26/17 Rx Azithromycin 500 mg PO DAILY 01/26/17 01/26/17 History Ciprofloxacin Tab [Cipro Tab] 500 mg PO BID 01/26/17 01/26/17 History Loratadine [Claritin] 10 mg PO DAILY 01/26/17 01/26/17 History Allergies Allergy/AdvReac Type Severity Reaction Status Date / Time No Known Allergies Allergy Unverified 01/09/17 06:23 Medical,Surgical,& Family Hx - Medical History Cardio: History of: Cardiac Dysrhythmia (AFIB ), PVD (DVT) Neurology: No history of: Seizures HEENT: History of: Ear Problem (HEARING AIDS), Eye Problem (GLASSES) Genitourinary: History of: Kidney Stones, Genitourinary Cancer (Prostate cancer) Gastrointestinal: History of: GERD, GI Problems (constipation) Musculoskeletal: History of: Musculoskeletal Problems (left hip need replacement ) Hematology: History of: Blood Transfusion Reaction Other: History of: Cancer (Prostate), Skin Problems (multiple skin cancers) - Surgical History Thoracic Surgeries: Surgical HX of;: Lithotripsy (recent) HEENT Surgeries: Surgical HX of: Eye Surgery (Bilateral cataracts), Tonsilectomy & Adenoidectomy Abdominal Surgeries: Surgical HX of: Hernia Repair Reproductive Surgeries: Surgical HX of;: Prostate Surgery - Family History Family History: Reports;: Family Cancer (Sister), Family Heart Disease, Family Hypertension - Social History Smoking Status: Never smoker Exam - Constitutional Vitals: Period Temp Pulse Resp BP Sys/[place] Pulse Ox Last 24 Hr 97.5 F-97.5 F 56-57 16-19 120-120/62-65 96-96 General appearance: no acute distress - Head Head exam: Present: normal inspection - ENT ENT exam: Present: normal exam - Neck Neck exam: Present: normal inspection - Respiratory Respiratory exam: Present: clear to auscultation bilaterally - Cardiovascular Cardiovascular exam: Present: regular rate and rhythm - GI/Abdominal GI/Abdominal exam: Present: soft - Genitourinary Genitourinary: scrotum without lesions, cysts, edema or rash, penis with no lesions or discharge - Extremities Exam Extremities exam: Present: edema (Chronic right greater than left) Results - Labs CBC & BMP: 01/26/17 17:21 Quality Measures - VTE Contraindication to Mechanical VTE Prophylaxis: Current Diagnosis of DVT
[2017-01-26 18:25] LABS: Calcium 8.7 MG/DL (8.5-10.1); Osmolality,Calculated 277.8 MOS/KG (273-304); Potassium 4.8 MMOL/L (3.5-5.1)
--- NOTE | 2017-01-26 18:31 | XRay Report ---
XR chest 2V Indication: Shortness of breath, history of DVT. Chest 2 views: Comparison 12/30/2016. Coarsened interstitial markings of the lungs noted. No focal infiltrate. Left hemidiaphragm slightly elevated. Heart size and mediastinal contour normal. Impression: No acute cardiopulmonary disease. Minimally elevated left hemidiaphragm. Senile lung changes. PROCEDURE INTERPRETED AT [facility] DEPARTMENT OF RADIOLOGY Final Report Signed by: Jacobo Torres M.D.
--- NOTE | 2017-01-26 18:35 | Hospitalist Consult Note ---
History of Present Illness - Consult Narrative History of present illness: Mr. Mart is a 89 year old male CC: Mark Higginbotham MD - Home Medications and Allergies Home Medications: Home Medications Medication Instructions Recorded Confirmed Type Azelastine Nasal 137 Mcg/[place] 2 spray BOTH NARES BID 01/31/15 01/26/17 History [Astelin Nasal [place]] Fluticasone 50 Mcg Nasal [place] 2 spray BOTH NARES QAM 01/31/15 01/26/17 History [Flonase Nasal [place]] Warfarin Sodium 2.5 mg PO QPM 01/31/15 01/26/17 History Clotrimazole/Betamethasone Dip 15 gm TOP BID 01/10/17 01/26/17 History [Clotrimazole/Betamethasone Cream] Tamsulosin [Flomax] 0.4 mg PO BEDTIME 01/10/17 01/26/17 History Sotalol [Betapace] 40 mg PO BID #60 tablet 01/14/17 01/26/17 Rx Azithromycin 500 mg PO DAILY 01/26/17 01/26/17 History Ciprofloxacin Tab [Cipro Tab] 500 mg PO BID 01/26/17 01/26/17 History Loratadine [Claritin] 10 mg PO DAILY 01/26/17 01/26/17 History Allergies/Adverse Reactions: Allergies Allergy/AdvReac Type Severity Reaction Status Date / Time No Known Allergies Allergy Unverified 01/09/17 06:23 Medical,Surgical,& Family Hx - Medical History Cardio: History of: Cardiac Dysrhythmia (AFIB ), PVD (DVT) Neurology: No history of: Seizures HEENT: History of: Ear Problem (HEARING AIDS), Eye Problem (GLASSES) Genitourinary: History of: Kidney Stones, Genitourinary Cancer (Prostate cancer) Gastrointestinal: History of: GERD, GI Problems (constipation) Musculoskeletal: History of: Musculoskeletal Problems (left hip need replacement ) Hematology: History of: Blood Transfusion Reaction Other: History of: Cancer (Prostate), Skin Problems (multiple skin cancers) - Surgical History Thoracic Surgeries: Surgical HX of;: Lithotripsy (recent) HEENT Surgeries: Surgical HX of: Eye Surgery (Bilateral cataracts), Tonsilectomy & Adenoidectomy Abdominal Surgeries: Surgical HX of: Hernia Repair Reproductive Surgeries: Surgical HX of;: Prostate Surgery - Family History Family History: Reports;: Family Cancer (Sister), Family Heart Disease, Family Hypertension - Social History Smoking Status: Never smoker Exam - Constitutional Vitals: Period Temp Pulse Resp BP Sys/[place] Pulse Ox Last 24 Hr 97.5 F-97.5 F 56-57 16-19 120-120/62-65 96-96 Results - Labs CBC & BMP: 01/26/17 17:21 01/26/17 17:21 Quality Measures - VTE Contraindication to Mechanical VTE Prophylaxis: Current Diagnosis of DVT
[2017-01-26 18:37] LABS: Calcium 8.8 MG/DL (8.5-10.1); Magnesium 2.2 MG/DL (1.8-2.4); Osmolality,Calculated 277.8 MOS/KG (273-304); Potassium 4.2 MMOL/L (3.5-5.1)
[2017-01-26 18:40] LABS: ABG Base Excess 0.7 MMOL/L (-2.5-2.5); ABG Oxygen Saturation 96.5 % (95-100); ABG PCO2 33.8 MM HG (35-48); ABG PH 7.459 (7.35-7.45); ABG PO2 79.5 MM HG (80-95); Allen Test Positive; Pt O2 Delivery Device Room Air
[2017-01-26] MEDS: methylPREDNISolone SOD SUC 40 MG/1 ML VIAL IV SCH (18:55)
[2017-01-26] MEDS: ENOXAPARIN 80 MG/0.8 ML SYRINGE SUBCUT SCH (18:55)
--- NOTE | 2017-01-26 18:55 | Hospitalist Consult Note ---
<Ihsan Santillan - Last Filed: 01/26/17 18:37> Assessment and Plan (1) Shortness of breath Status: Chronic Assessment and plan: Patient noticeably short of breath on exertion at minimal distance. Chest x- ray unremarkable. Patient does have decreased breath sounds with prolonged expiratory phase. 2 nails. Echocardiogram. VQ scan. Current Visit: No (2) Chronic anticoagulation Status: Chronic Assessment and plan: Patient currently takes Coumadin 2.5 mg daily. He is subtherapeutic with an INR 1.6. Increase Coumadin to 5 mg daily with loading dose of Lovenox tonight. 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 On Coumadin with subtherapeutic INR. Increase Coumadin to 5mg daily. Add Lovenox Current Visit: No (4) Renal insufficiency Status: Chronic Assessment and plan: Creatinine 1.8. This appears to be the patient's baseline. Will continue to monitor. Current Visit: No History of Present Illness - Data of Consult Patient: new to practice Consult date: 01/26/17 Requesting Physician: Mark Higginbotham - Consult Narrative Reason for consult: Medical management History of present illness: Mr. Mart is a 89 year old white male with a past medical history significant for DVT with chronic anticoagulation, renal insufficiency, paroxysmal atrial fibrillation who is admitted to Dr. Mark Higginbotham for further evaluation of nephrolithiasis and shortness of breath. He was recently admitted for dizziness and orthostatic hypotension, found to have PSVT and was discharged home on sotalol. The patient also recently had a lithotripsy prior to that hospitalization and had been off of his Coumadin for that procedure. He was discharged on 01/13/17. The patient has not been able to pass the kidney stones to-date and had been experiencing some shortness of breath with suspected hypotension; he was subsequently admitted today. We have been consulted for medical management of his shortness of breath and blood pressure control. Upon exam, the patient was found to be mildly short of breath with prolonged expiratory phases. He denies headache, chest pain, pain on inspiration , nausea or vomiting, numbness and tingling. He does admit to increased shortness of breath and bilateral lower extremity edema. Of note he is currently back on Coumadin but his INR is subtherapeutic at 1.6. Lab work is remarkable for: WBC 7.3, hemoglobin 12.5, hematocrit 38.0, INR 1.6, pH 7.459, PCO2 33.8, HCO3 25.0, sodium 137, potassium 4.8, chloride 101, BUN 26 , creatinine 1.8 (this appears to be patient's baseline). Case has been discussed with Dr. Bain. We will continue to do a full work up for DVT and PE including echocardiogram and V/Q scan. We are happy to follow along with the care of this patient. Thank you for the consult. CC: Mark Higginbotham MD - Home Medications and Allergies Home Medications: Home Medications Medication Instructions Recorded Confirmed Type Azelastine Nasal 137 Mcg/[place] 2 spray BOTH NARES BID 01/31/15 01/26/17 History [Astelin Nasal [place]] Fluticasone 50 Mcg Nasal [place] 2 spray BOTH NARES QAM 01/31/15 01/26/17 History [Flonase Nasal [place]] Warfarin Sodium 2.5 mg PO QPM 01/31/15 01/26/17 History Clotrimazole/Betamethasone Dip 15 gm TOP BID 01/10/17 01/26/17 History [Clotrimazole/Betamethasone Cream] Tamsulosin [Flomax] 0.4 mg PO BEDTIME 01/10/17 01/26/17 History Sotalol [Betapace] 40 mg PO BID #60 tablet 01/14/17 01/26/17 Rx Azithromycin 500 mg PO DAILY 01/26/17 01/26/17 History Ciprofloxacin Tab [Cipro Tab] 500 mg PO BID 01/26/17 01/26/17 History Loratadine [Claritin] 10 mg PO DAILY 01/26/17 01/26/17 History Allergies/Adverse Reactions: Allergies Allergy/AdvReac Type Severity Reaction Status Date / Time No Known Allergies Allergy Unverified 01/09/17 06:23 Medical,Surgical,& Family Hx - Medical History Cardio: History of: Cardiac Dysrhythmia (AFIB ), PVD (DVT) Neurology: No history of: Seizures HEENT: History of: Ear Problem (HEARING AIDS), Eye Problem (GLASSES) Genitourinary: History of: Kidney Stones, Genitourinary Cancer (Prostate cancer) Gastrointestinal: History of: GERD, GI Problems (constipation) Musculoskeletal: History of: Musculoskeletal Problems (left hip need replacement ) Hematology: History of: Blood Transfusion Reaction Other: History of: Cancer (Prostate), Skin Problems (multiple skin cancers) - Surgical History Thoracic Surgeries: Surgical HX of;: Lithotripsy (recent) HEENT Surgeries: Surgical HX of: Eye Surgery (Bilateral cataracts), Tonsilectomy & Adenoidectomy Abdominal Surgeries: Surgical HX of: Hernia Repair Reproductive Surgeries: Surgical HX of;: Prostate Surgery - Family History Family History: Reports;: Family Cancer (Sister), Family Heart Disease, Family Hypertension - Social History Smoking Status: Never smoker Frequency of Alcohol Use: None Type of Drug Use: None Marital Status: Lives With:: Spouse Functional capacity: uses cane/walker - Constitutional Constitutional: Present: weakness. Absent: anorexia, chills, frequent falls - EENT Eyes: Absent: blurry vision, loss of vision Ears: Present: decreased hearing Nose, mouth and throat: Absent: neck mass, sore throat, vertigo - Cardiovascular Cardiovascular: Present: dyspnea, dyspnea on exertion, edema. Absent: chest pain at rest, radiating jaw, neck or arm pain, lightheadedness, orthopnea - Respiratory Respiratory: Present: cough, dyspnea, dyspnea on exertion - Gastrointestinal Gastrointestinal: Present: constipation. Absent: abdominal pain, change in bowel habits, nausea, vomiting - Genitourinary Genitourinary: Present: difficulty urinating. Absent: flank pain - Musculoskeletal Musculoskeletal: Absent: back pain - Neurological Neurological: Absent: abnormal speech, dizziness, numbness, syncope - Psychiatric Psychiatric: Absent: anxiety, depression - Endocrine Endocrine: Present: cold intolerance. Absent: heat intolerance - Hematologic/Lymphatic Hematologic/Lymphatic: Present: easy bleeding, easy bruising Exam - Constitutional Vitals: Period Temp Pulse Resp BP Sys/[place] Pulse Ox Last 24 Hr 97.5 F-97.5 F 56-57 16-19 120-120/62-65 96-96 General appearance: no acute distress, over weight - Head Head exam: Present: normal inspection, normocephalic, atraumatic - Eye Eye exam: Present: EOMI Pupils: Present: RASHID - ENT ENT exam: Present: normal exam, normal external ear exam - Neck Neck exam: Present: normal inspection. Absent: lymphadenopathy, tenderness, thyromegaly - Respiratory Respiratory exam: Present: decreased breath sounds, prolonged expiratory phase. Absent: rales, rhonchi - Cardiovascular Cardiovascular exam: Present: irregular rhythm. Absent: carotid bruit - GI/Abdominal GI/Abdominal exam: Present: normal bowel sounds. Absent: ascites, distended, mass, tenderness, rebound - Extremities Exam Extremities exam: Present: normal inspection, normal capillary refill, edema (2- 3+ pitting edema in bilateral LE, greater on R than L) - Back Exam Back exam: Present: normal inspection - Neurological Exam Neurological exam: Present: alert, oriented X3, CN II-XII intact, reflexes normal - Psychiatric Psychiatric exam: Present: normal affect, normal mood - Skin Skin exam: Present: normal color, warm, dry Results - Labs CBC & BMP: 01/26/17 17:21 01/26/17 17:21 Lab Results: I have reviewed the past 24 hour labs - EKG EKG shows: bradycardia, sinus rhythm - Diagnostic Findings Procedure: Chest x-ray: image reviewed by me, report reviewed by me ( Unremarkable) Quality Measures - VTE Contraindication to Mechanical VTE Prophylaxis: Current Diagnosis of DVT <Daly Bain - Last Filed: 01/26/17 20:16> Assessment and Plan (1) Shortness of breath Status: Chronic Assessment and plan: Patient has extensive edema in his LE with most likely bilateral DVT and is subtherapeutic on coumadin putting him at risk for PE. Stat VQ. Increase coumadin to 5 mg at bedtime. Start treatment dose lovenox. May have some copd , duonebs and low dose solumedrol, no evidence of bronchitis or pneumonia. Low BNP does not support chf. Current Visit: No (2) Acute on chronic renal failure Status: Acute Assessment and plan: cont to monitor, may benefit from low dose of IVF Current Visit: Yes (3) History of DVT in adulthood Status: Chronic Current Visit: No (4) Paroxysmal atrial fibrillation Status: Chronic Assessment and plan: cont sotalol and continue warfarin Current Visit: No (5) Kidney stone Status: Acute Assessment and plan: Dr Higginbotham. Current Visit: Yes History of Present Illness - Consult Narrative History of present illness: Mr. Mart is a 89 year old male seen and examined. History and physical reviewed and edited. Agree with findings above. Patient does have a prolonged expiratory phase with wheezing. CC: Mark Higginbotham MD Exam - Constitutional Vitals: Period Temp Pulse Resp BP Sys/[place] Pulse Ox Last 24 Hr 96.9 F-97.5 F 56-61 16-19 112-120/46-65 95-98 - Eye Eye exam: Absent: scleral icterus - Respiratory Respiratory exam: Present: wheezes - Cardiovascular Cardiovascular exam: Present: bradycardia Results - Labs CBC & BMP: 01/26/17 17:21 01/26/17 Unknown
[2017-01-26] MEDS: ALBUTEROL/IPRATROPIUM 3 ML NEB RESP TX SCH (19:10)
[2017-01-26] MEDS: CLOTRIMAZOLE/BETAMETHASONE CREAM 15 GM TUBE TOP SCH ×2 (20:40→21:14)
[2017-01-26] MEDS: TAMSULOSIN 0.4 MG CAPSULE PO SCH (20:40)
[2017-01-26] MEDS: AZELASTINE NASAL 137 MCG/SPRAY 30 ML BOTTLE BOTH NARES SCH (20:40)
[2017-01-26] MEDS: SOTALOL 80 MG TABLET PO SCH (20:40)
[2017-01-26] MEDS: CIPROFLOXACIN 500 MG TABLET PO SCH (20:40)
[2017-01-26 21:04] LABS: Apearance,Urine CLEAR (Clear); Bacteria,Urine Few /HPF (Few); Bilirubin,Urine Negative (Negative); Blood, Urine Negative (Negative); Glucose,Urine (UA) Negative (Negative); Ketones,Urine Negative (Negative); Mucus,Urine Occasional /LPF (Occasional); Nitrite,Urine Negative (Negative); Protein,Urine Negative; RBC,Urine 1 /HPF (0-4); Urine Color Straw (Yellow); Urine Specific Gravity 1.008 (1.001-1.035); Urine Urobilinogen < 2.0 EU/DL (0.2-1.0); WBC,Urine 3 /HPF (0-6)
--- NOTE | 2017-01-26 21:45 | Nuclear Medicine Report ---
NM lung scan vent and per Indication: History of DVT. Subtherapeutic on Coumadin. VENTILATION/PERFUSION LUNG SCAN: Planar imaging of the lungs was obtained after the IV administration of 5 mCi technetium 99m labeled MAA, and aerosol administration of 40 mCi technetium 99m labeled DTPA. Comparison: None. Findings: No discrete perfusion defects are shown. Impression: Normal exam. PROCEDURE INTERPRETED AT [facility] DEPARTMENT OF RADIOLOGY Final Report Signed by: Jacobo Torres M.D.
[2017-01-26] MEDS: SODIUM CHLORIDE 0.9% 1,000 ML IV SCH (21:55)
[2017-01-27] MEDS: ALBUTEROL/IPRATROPIUM 3 ML NEB RESP TX SCH ×4 (00:18→19:41)
[2017-01-27] MEDS: methylPREDNISolone SOD SUC 40 MG/1 ML VIAL IV SCH ×4 (02:17→18:00)
[2017-01-27 06:16] LABS: INR 1.6; PT Patient Result 17.3 SECS
[2017-01-27 06:21] LABS: Calcium 8.9 MG/DL (8.5-10.1); Magnesium 2.1 MG/DL (1.8-2.4); Osmolality,Calculated 288.4 MOS/KG (273-304); Potassium 4.7 MMOL/L (3.5-5.1)
[2017-01-27] MEDS: ENOXAPARIN 80 MG/0.8 ML SYRINGE SUBCUT SCH (07:01)
--- NOTE | 2017-01-27 07:47 | XRay Report ---
XR KUB Indication: Right ureteral calculi Comparison: 23 January 2017 Findings: No free fluid or free air seen. The bowel gas pattern appears within normal limits. Calcifications overlie the right side of the pelvis similar to previous exam. No other abnormal calcifications are present. No other abnormality is identified. Impression: Calculi in the pelvis are similar appearance to previous exam. No other significant change. PROCEDURE INTERPRETED AT [facility] DEPARTMENT OF RADIOLOGY Final Report Signed by: Dr. Benny Tang
--- NOTE | 2017-01-27 08:52 | Pulmonology Consult Note ---
Assessment and Plan (1) Dizziness Status: Resolved Assessment and plan: The patient has had some mild dizziness off and on lately and occasionally his blood pressure is a little on the low side. He has some problems after lithotripsy but is better now. 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 Current Visit: No (3) Shortness of breath Status: Chronic Assessment and plan: Patient has chronic shortness of breath and at this point we have not been able to find the cause. His chest x-ray is clear and his lungs sound okay. His VQ scan looks normal. He is getting an echocardiogram today. Current Visit: No (4) Chronic anticoagulation Status: Chronic Assessment and plan: He has been tolerating Coumadin fairly well. Current Visit: No (5) Renal insufficiency Status: Chronic Assessment and plan: His creatinine is 1.8 and stable. Current Visit: No (6) Kidney stone Status: Acute Assessment and plan: He has recently had lithotripsy and still has some stones. Current Visit: Yes History of Present Illness Chief complaint: Shortness of breath History of present illness: Mr. Mart is a 89 year old white male that I have followed for a number of years. 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 In the past he has had DVT and had positive lupus serology has been on anticoagulation for a number of years. 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 He has been kicked by cows in the recent past and has fallen off a tractor. His main problem lately has been kidney stones. He has chronically complained of shortness of breath for years and his chest x-ray is always been clear. Recently it looks like he might of have a mild pneumonitis and has been on some antibiotics. He came in because he was having some dizziness and weakness and possible shortness of breath. He has been having trouble with kidney stones lately. He recently had lithotripsy. His vital signs have been stable and his chest x-ray and VQ scan are unremarkable. His ABGs are normal for his age. His creatinine is 1.8 and stable. His blood count looks unremarkable. He does have an echocardiogram that is pending. Home Medications Medication Instructions Recorded Confirmed Type Azelastine Nasal 137 Mcg/[place] 2 spray BOTH NARES BID 01/31/15 01/26/17 History [Astelin Nasal [place]] Fluticasone 50 Mcg Nasal [place] 2 spray BOTH NARES QAM 01/31/15 01/26/17 History [Flonase Nasal [place]] Warfarin Sodium 2.5 mg PO QPM 01/31/15 01/26/17 History Clotrimazole/Betamethasone Dip 15 gm TOP BID 01/10/17 01/26/17 History [Clotrimazole/Betamethasone Cream] Tamsulosin [Flomax] 0.4 mg PO BEDTIME 01/10/17 01/26/17 History Sotalol [Betapace] 40 mg PO BID #60 tablet 01/14/17 01/26/17 Rx Azithromycin 500 mg PO DAILY 01/26/17 01/26/17 History Ciprofloxacin Tab [Cipro Tab] 500 mg PO BID 01/26/17 01/26/17 History Loratadine [Claritin] 10 mg PO DAILY 01/26/17 01/26/17 History Allergies Allergy/AdvReac Type Severity Reaction Status Date / Time No Known Allergies Allergy Unverified 01/09/17 06:23 - Constitutional Constitutional: Present: fatigue, weakness. Absent: chills, fever(s), weight loss - EENT Eyes: Absent: loss of vision Ears: Present: decreased hearing Nose, mouth and throat: Absent: dysphagia, headache(s), sinus pressure - Cardiovascular Cardiovascular: Present: dyspnea on exertion, edema, lightheadedness. Absent: chest pain at rest, claudication, palpitations - Respiratory Respiratory: Present: dyspnea. Absent: cough, hemoptysis, wheezing, pain on inspiration, change in phlegm color - Gastrointestinal Gastrointestinal: Absent: abdominal pain, change in bowel habits, dysphagia, heartburn, nausea, vomiting - Genitourinary Genitourinary: Present: flank pain, urinary frequency. Absent: difficulty urinating, dysuria, hematuria - Musculoskeletal Musculoskeletal: Present: arthralgias. Absent: joint swelling, muscle weakness - Neurological Neurological: Present: dizziness. Absent: abnormal speech, confusion, focal weakness, paresthesias Exam (Pulmonay) H&P - Constitutional Vitals: Period Temp Pulse Resp BP Sys/Madison Pulse Ox Last 24 Hr 96.9 F-97.7 F 52-63 16-56 103-123/46-65 95-99 General appearance: normal weight, no acute distress - Head Head exam: Present: normal inspection, normocephalic - Eye Eye exam: Present: EOMI. Absent: scleral icterus Pupils: Present: RASHID - ENT ENT exam: Present: other (He has marked decreased hearing) - Neck Neck exam: Present: normal inspection. Absent: lymphadenopathy, thyromegaly - Respiratory Respiratory exam: Present: clear to auscultation bilaterally. Absent: accessory muscle use, rales, wheezes - Cardiovascular Cardiovascular exam: Present: regular rate and rhythm. Absent: gallop, systolic murmur - GI/Abdominal GI/Abdominal exam: Present: normal bowel sounds, soft. Absent: distended, guarding, organomegaly, tenderness - Extremities Exam Extremities exam: Present: edema (He has mild edema in the lower extremities). Absent: calf tenderness - Back Exam Back exam: Absent: CVA tenderness (L), CVA tenderness (R) - Neurological Exam Neurological exam: Present: alert, oriented X3 - Psychiatric Psychiatric exam: Present: normal affect, normal mood - Skin Skin exam: Present: warm, dry Medical,Surgical,& Family Hx - Medical History Cardio: History of: Cardiac Dysrhythmia (AFIB ), PVD (DVT) Neurology: No history of: Seizures HEENT: History of: Ear Problem (HEARING AIDS), Eye Problem (GLASSES) Rheumatology: History of;: Systemic Lupus Erythematosus (He had positive lupus serology) Genitourinary: History of: Kidney Stones, Genitourinary Cancer (Prostate cancer) Gastrointestinal: History of: GERD, GI Problems (constipation) Musculoskeletal: History of: Musculoskeletal Problems (left hip need replacement ) Hematology: History of: Blood Transfusion Reaction Other: History of: Cancer (Prostate), Skin Problems (multiple skin cancers) - Surgical History Thoracic Surgeries: Surgical HX of;: Lithotripsy (recent) HEENT Surgeries: Surgical HX of: Eye Surgery (Bilateral cataracts), Tonsilectomy & Adenoidectomy Abdominal Surgeries: Surgical HX of: Hernia Repair Reproductive Surgeries: Surgical HX of;: Prostate Surgery - Family History Family History: Reports;: Family Cancer (Sister), Family Heart Disease, Family Hypertension - Social History Smoking Status: Never smoker Frequency of Alcohol Use: None Type of Drug Use: None Results - Labs CBC & BMP: 01/26/17 17:21 01/27/17 05:42 - Diagnostic Findings Procedure: Chest x-ray: image reviewed by me, report reviewed by me (Chest x- ray is unremarkable), X-ray: report reviewed by me, image reviewed by me (VQ scan is normal) Quality Measures - VTE Contraindication to Mechanical VTE Prophylaxis: Current Diagnosis of DVT
[2017-01-27] MEDS ORDERED: AZITHROMYCIN 500 MG PO SCH (09:00)
[2017-01-27] MEDS: AZELASTINE NASAL 137 MCG/SPRAY 30 ML BOTTLE BOTH NARES SCH ×2 (09:09→20:36)
[2017-01-27] MEDS: FLUTICASONE 50 MCG NASAL SPRAY 16 GM BOTTLE BOTH NARES SCH (09:09)
[2017-01-27] MEDS: SOTALOL 80 MG TABLET PO SCH ×2 (09:10→20:38)
[2017-01-27] MEDS: LORATADINE 10 MG TABLET PO SCH (09:11)
[2017-01-27] MEDS: CIPROFLOXACIN 500 MG TABLET PO SCH ×2 (09:11→20:38)
[2017-01-27] MEDS: SODIUM CHLORIDE 0.9% 1,000 ML IV SCH ×2 (09:11→22:31)
[2017-01-27] MEDS: CLOTRIMAZOLE/BETAMETHASONE CREAM 15 GM TUBE TOP SCH ×2 (09:12→20:38)
--- NOTE | 2017-01-27 12:58 | ECHO Report ---
Malvin Mart Exam Date: 01/27/2017 11:17 Referring Physician: Technologist: Age: 89 Ht (in): Wt (lb): Gender: M Exam Location: [facility], [place] Echo Indications: BP: / HR: Rhythm: Sinus Technical Quality: average IMPRESSIONS Overall ejection fraction is 60% with no regional wall motion abnormality. The left ventricular cavity size structure and function are all normal. Diastolic parameters are most consistent with grade 1 diastolic dysfunction or impaired relaxation. There is mild tricuspid regurgitation peak velocity 2.58 m/s which corresponds with a right ventricular systolic pressure of 27 mmHg plus right atrial pressure. MEASUREMENTS (Male / Female) Normal Values 2D ECHO LV Diastolic Diameter PLAX 3.3 cm 4.2 - 5.9 / 3.9 - 5.3 cm LV Systolic Diameter PLAX 2.1 cm LV Fractional Shortening PLAX 35.6 % IVS Diastolic Thickness 1.8 cm 0.6 - 1.0 / 0.6 - 0.9 cm LVPW Diastolic Thickness 1.1 cm 0.6 - 1.0 / 0.6 - 0.9 cm RV Internal Dim ED PLAX 2.8 cm Aortic Root Diameter 2.4 cm LA Systolic Diameter LX 2.9 cm 3.0 - 4.0 / 2.7 - 3.8 cm DOPPLER TR Peak Velocity 258.0 cm/s TR Peak Gradient 26.6 mmHg FINDINGS Left Ventricle Overall ejection fraction is 60% with no regional wall motion abnormality. The left ventricular cavity size structure and function are all normal. Diastolic parameters are most consistent with grade 1 diastolic dysfunction or impaired relaxation Right Ventricle Normal size and function Right Atrium Normal size Left Atrium Normal size Mitral Valve Mitral valve appears anatomically normal there is no stenosis or regurgitation Aortic Valve Aortic valve appears normal there is no gradient across the valve there is trace aortic insufficiency Tricuspid Valve There is mild tricuspid regurgitation peak velocity 2.58 m/s which corresponds with a right ventricular systolic pressure of 27 mmHg plus right atrial pressure Pulmonic Valve Normal with no gradient or insufficiency Pericardium No effusion Aorta Visualized portions thoracic aorta is normal. Evy Bee (Electronically Signed) Final Date: 27 January 2017 12:58
--- NOTE | 2017-01-27 13:43 | Hospitalist Progress Note ---
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 Coumadin increased yesterday Current Visit: No (2) Shortness of breath Status: Chronic Assessment and plan: VQ scan without PE Pulmonary consulted Echo pending Current Visit: No (3) Dizziness Status: Resolved Current Visit: No (4) Chronic anticoagulation Status: Chronic Current Visit: No (5) Kidney stone Status: Acute Assessment and plan: s/p lithotripsy Current Visit: Yes Hospitalist: Subjective Interval history: No acute events overnight. Patient feels better today, still with sob with exertion. Exam - Constitutional Vitals: Period Temp Pulse Resp BP Sys/[place] Pulse Ox Last 24 Hr 96.9 F-97.8 F 52-78 16-56 103-124/46-65 95-99 General appearance: normal weight - Head Head exam: Present: normocephalic, atraumatic - Eye Eye exam: Present: EOMI Pupils: Present: RASHID - ENT ENT exam: Present: normal exam - Neck Neck exam: Present: normal inspection - Respiratory Respiratory exam: Present: clear to auscultation bilaterally. Absent: rhonchi, wheezes - Cardiovascular Cardiovascular exam: Present: regular rate and rhythm - GI/Abdominal GI/Abdominal exam: Present: normal bowel sounds, soft. Absent: tenderness, rebound - Extremities Exam Extremities exam: Present: normal inspection - Back Exam Back exam: Present: normal inspection - Neurological Exam Neurological exam: Present: alert, oriented X3 - Psychiatric Psychiatric exam: Present: normal affect, normal mood - Skin Skin exam: Present: warm, intact Results - Labs CBC & BMP: 01/26/17 17:21 01/27/17 05:42 Quality Measures - VTE Contraindication to Mechanical VTE Prophylaxis: Current Diagnosis of DVT
--- NOTE | 2017-01-27 14:33 | Urology Progress Note ---
Assessment and Plan (1) Shortness of breath Status: Chronic Assessment and plan: I am not sure exactly what is going on. But he call my office complaining of shortness of breath and dizziness. My fear was that he was getting septic from these ureteral stones that he has but he does not appear toxic. He says that he saw Dr. Gordillo had a cold and was placed on antibiotics. I therefore put him in the hospital we will check her studies. I will consult the hospitalist and consult Dr. Gordillo. Current Visit: No Urology - PN: Subj Interval history: Patient is improving the hospital. Basically his workup is come up with no significant findings. May be age-related. But he is being treated for a lot of medical issues. His urine is negative so far on culture. I recommend that we keep him in the hospital through the weekend and I ureteroscope him in laser the stones that he has left because I want to get this stone issue behind this. The family and the patient are in agreement. He needs to ambulate and not lie in the bed all day. He is on Lovenox 80 twice a day and I think that is a bit much I will change this to 30 once a day. I will hold his Coumadin. Exam - Constitutional Vitals: Period Temp Pulse Resp BP Sys/[place] Pulse Ox Last 24 Hr 96.9 F-97.8 F 52-78 16-56 103-124/46-65 95-99 Results - Labs CBC & BMP: 01/26/17 17:21 01/27/17 05:42
[2017-01-27] MEDS ORDERED: MECLIZINE 25 MG TABLET PO PRN (19:03)
[2017-01-27] MEDS ORDERED: LORazepam 2 MG/1 ML VIAL IV ONE (19:04)
[2017-01-27] MEDS: TAMSULOSIN 0.4 MG CAPSULE PO SCH (20:37)
[2017-01-28] MEDS: ALBUTEROL/IPRATROPIUM 3 ML NEB RESP TX SCH ×4 (00:49→18:57)
[2017-01-28] MEDS: methylPREDNISolone SOD SUC 40 MG/1 ML VIAL IV SCH ×3 (01:40→19:57)
[2017-01-28 02:44] LABS: Calcium 8.3 MG/DL (8.5-10.1); Magnesium 2.1 MG/DL (1.8-2.4); Osmolality,Calculated 284.8 MOS/KG (273-304); Potassium 4.2 MMOL/L (3.5-5.1)
[2017-01-28 02:48] LABS: INR 1.6; PT Patient Result 17.7 SECS
[2017-01-28] MEDS: AZELASTINE NASAL 137 MCG/SPRAY 30 ML BOTTLE BOTH NARES SCH ×2 (09:07→20:00)
[2017-01-28] MEDS: LORATADINE 10 MG TABLET PO SCH (09:07)
[2017-01-28] MEDS: FLUTICASONE 50 MCG NASAL SPRAY 16 GM BOTTLE BOTH NARES SCH (09:07)
[2017-01-28] MEDS: SOTALOL 80 MG TABLET PO SCH ×2 (09:07→20:00)
[2017-01-28] MEDS: CLOTRIMAZOLE/BETAMETHASONE CREAM 15 GM TUBE TOP SCH ×2 (09:07→20:01)
[2017-01-28] MEDS: CIPROFLOXACIN 500 MG TABLET PO SCH ×2 (09:07→20:00)
--- NOTE | 2017-01-28 11:04 | Pulmonology Progress Note ---
Pulmonary - PN: Subj Interval history: Patient is an 89-year-old white man that has kidney stones. He came in because he is having episodes of shortness of breath and may be dizziness. He says he was feeling well yesterday but last night he had another episode. He was anxious and dizzy and short of breath. He got some Atarax and Ativan and slept all night. He is feeling better now. It is not clear what is causing these episodes. His vital signs have been stable and he looks good today. Exam (Progress Note) - Constitutional Vitals: Period Temp Pulse Resp BP Sys/[place] Pulse Ox Last 24 Hr 96.8 F-97.8 F 58-78 16-20 103-134/49-64 97-99 Exam: General appearance: normal weight, no acute distress, he is sitting up and looks comfortable in chair. - Head Head exam: Present: normal inspection, normocephalic - Eye Eye exam: Present: EOMI. Absent: scleral icterus Pupils: Present: RASHID - ENT ENT exam: Present: other (He has marked decreased hearing) - Neck Neck exam: Present: normal inspection. Absent: lymphadenopathy, thyromegaly - Respiratory Respiratory exam: Present: clear to auscultation bilaterally. He has good breath sounds bilaterally without any definite rales or wheezing. - Cardiovascular Cardiovascular exam: Present: regular rate and rhythm. Absent: gallop, systolic murmur - GI/Abdominal GI/Abdominal exam: Present: normal bowel sounds, soft. Absent: distended, guarding, organomegaly, tenderness - Extremities Exam Extremities exam: Present: edema (He has mild edema in the lower extremities). Absent: calf tenderness - Back Exam Back exam: Absent: CVA tenderness (L), CVA tenderness (R) - Neurological Exam Neurological exam: Present: alert, oriented X3, he has no focal deficits. - Psychiatric Psychiatric exam: Present: normal affect, normal mood - Skin Skin exam: Present: warm, dry Results - Labs CBC & BMP: 01/26/17 17:21 01/28/17 02:00 Assessment and Plan (1) Dizziness Status: Resolved Assessment and plan: The patient has had some mild dizziness off and on lately and occasionally his blood pressure is a little on the low side. He has some problems after lithotripsy but is better now. He apparently had another event last night and was better after Ativan. Will check carotid Dopplers. 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 Current Visit: No (3) Shortness of breath Status: Chronic Assessment and plan: Patient has chronic shortness of breath and at this point we have not been able to find the cause. His chest x-ray is clear and his lungs sound okay. His VQ scan looks normal. His echocardiogram shows good left ventricular function. His breathing is stable at present. Current Visit: No (4) Chronic anticoagulation Status: Chronic Assessment and plan: He has been tolerating Coumadin fairly well. Current Visit: No (5) Renal insufficiency Status: Chronic Assessment and plan: His creatinine is 1.8 and stable. Current Visit: No (6) Kidney stone Status: Acute Assessment and plan: He has recently had lithotripsy and still has some stones. He will have a ureteroscope on Monday. Current Visit: Yes
[2017-01-28] MEDS: SODIUM CHLORIDE 0.9% 1,000 ML IV SCH (12:31)
--- NOTE | 2017-01-28 12:33 | Ultrasound Report ---
Exam: Carotid ultrasound Date: 01/28/2017 Comparison: None Technique: Duplex scans of the carotid and vertebral arteries using B-mode/Clancy scale imaging and Doppler spectral analysis and color flow. Reason: Dizziness Findings: The right ICA measures 5.0 mm in diameter and the left ICA measures 5.5 mm in diameter. Color-flow documented in the visualized arteries. The peak systolic velocities are as follows: Right CCA: 78.1 cm/s Right ICA: 82.0 cm/s Right ECA: 102.0 cm/s Left CCA: 85.7 cm/s Left ICA: 85.7 cm/s Left ECA: 104.3 cm/s The peak systolic ICA/CCA velocity ratios are as follows: 1.1 on the right and 1.0 on the left. Antegrade flow is present in both vertebral arteries. Impression:[Less than 50% stenosis in both internal carotid arteries with minimal heterogeneous plaque formation. Antegrade flow in both vertebral arteries.] The Society of Radiologists in Ultrasound consensus conference criteria was used. The Ultrasound images were captured and stored. PROCEDURE INTERPRETED AT [facility] DEPARTMENT OF RADIOLOGY Final Report Signed by: Dr. Nisha Daugherty
--- NOTE | 2017-01-28 12:38 | Urology Progress Note ---
Assessment and Plan (1) Shortness of breath Status: Chronic Assessment and plan: I am not sure exactly what is going on. But he call my office complaining of shortness of breath and dizziness. My fear was that he was getting septic from these ureteral stones that he has but he does not appear toxic. He says that he saw Dr. Gordillo had a cold and was placed on antibiotics. I therefore put him in the hospital we will check her studies. I will consult the hospitalist and consult Dr. Gordillo. Current Visit: No Urology - PN: Subj Interval history: Patient had a good night and slept. He got Ativan for restlessness. Dizzy today not feeling as good as he did yesterday. I think it is steroids that he got yesterday. Had a carotid Doppler this morning that shows less than 50% occlusion and patent vertebrals. So I do not think he is having TIAs. I still plan on Monday ureteroscopy if it is okay with Dr. Gordillo. Exam - Constitutional Vitals: Period Temp Pulse Resp BP Sys/[place] Pulse Ox Last 24 Hr 96.8 F-98.0 F 56-69 16-20 103-134/49-64 97-99 Results - Labs CBC & BMP: 01/26/17 17:21 01/28/17 02:00
--- NOTE | 2017-01-28 13:14 | Hospitalist Progress Note ---
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 Continue coumadin Current Visit: No (2) Shortness of breath Status: Chronic Assessment and plan: VQ scan without PE Pulmonary consulted Echo and carotid doppler without significant disease Placed on monitoring engineer Current Visit: No (3) Dizziness Status: Resolved Current Visit: No (4) Chronic anticoagulation Status: Chronic Current Visit: No (5) Kidney stone Status: Acute Assessment and plan: s/p lithotripsy Current Visit: Yes Hospitalist: Subjective Interval history: Overnight patient with episode of dizziness and sob. Relieved with anxiety medications. Exam - Constitutional Vitals: Period Temp Pulse Resp BP Sys/[place] Pulse Ox Last 24 Hr 96.8 F-98.0 F 56-69 16-20 103-134/49-64 97-99 General appearance: normal weight - Head Head exam: Present: normocephalic, atraumatic - Eye Eye exam: Present: EOMI Pupils: Present: RASHID - ENT ENT exam: Present: normal exam - Neck Neck exam: Present: normal inspection - Respiratory Respiratory exam: Present: clear to auscultation bilaterally. Absent: rhonchi, wheezes - Cardiovascular Cardiovascular exam: Present: regular rate and rhythm - GI/Abdominal GI/Abdominal exam: Present: normal bowel sounds, soft. Absent: tenderness, rebound - Extremities Exam Extremities exam: Present: normal inspection - Back Exam Back exam: Present: normal inspection - Neurological Exam Neurological exam: Present: alert, oriented X3 - Psychiatric Psychiatric exam: Present: normal affect, normal mood - Skin Skin exam: Present: warm, intact Results - Labs CBC & BMP: 01/26/17 17:21 01/28/17 02:00 Quality Measures - VTE Contraindication to Mechanical VTE Prophylaxis: Current Diagnosis of DVT
[2017-01-28] MEDS ORDERED: ENOXAPARIN 40 MG/0.4 ML SYRINGE SUBCUT SCH (14:30)
[2017-01-28] MEDS: TAMSULOSIN 0.4 MG CAPSULE PO SCH (20:00)
[2017-01-29] MEDS: ALBUTEROL/IPRATROPIUM 3 ML NEB RESP TX SCH ×4 (00:13→19:16)
[2017-01-29] MEDS: SODIUM CHLORIDE 0.9% 1,000 ML IV SCH ×2 (01:47→15:05)
[2017-01-29 02:48] LABS: Calcium 8.1 MG/DL (8.5-10.1); Osmolality,Calculated 290.4 MOS/KG (273-304); Potassium 4.2 MMOL/L (3.5-5.1)
[2017-01-29 02:55] LABS: INR 1.9
[2017-01-29 03:26] LABS: PT Patient Result 21.3 SECS
[2017-01-29] MEDS: SOTALOL 80 MG TABLET PO SCH ×2 (08:17→20:32)
[2017-01-29] MEDS: AZELASTINE NASAL 137 MCG/SPRAY 30 ML BOTTLE BOTH NARES SCH ×2 (08:17→20:32)
[2017-01-29] MEDS: methylPREDNISolone SOD SUC 40 MG/1 ML VIAL IV SCH ×2 (08:17→20:29)
[2017-01-29] MEDS: LORATADINE 10 MG TABLET PO SCH (08:17)
[2017-01-29] MEDS: CIPROFLOXACIN 500 MG TABLET PO SCH ×2 (08:17→20:32)
[2017-01-29] MEDS: CLOTRIMAZOLE/BETAMETHASONE CREAM 15 GM TUBE TOP SCH ×2 (08:17→20:32)
[2017-01-29] MEDS: FLUTICASONE 50 MCG NASAL SPRAY 16 GM BOTTLE BOTH NARES SCH (08:17)
--- NOTE | 2017-01-29 09:53 | Pulmonology Progress Note ---
Pulmonary - PN: Subj Interval history: Patient is an 89-year-old white man that has kidney stones. He came in because he is having episodes of shortness of breath and may be dizziness. He says he had a better night last night and rested okay. He is a little bit constipated and trying to have a bowel movement. He has not had any further confusion or dizziness. He is not having any shortness of breath at present. His carotid Dopplers were okay. Overall he is fairly stable. He is for a ureteroscopy tomorrow. Exam (Progress Note) - Constitutional Vitals: Period Temp Pulse Resp BP Sys/[place]ison Pulse Ox Last 24 Hr 97.1 F-98.4 F 51-63 16-20 107-136/43-78 95-99 Exam: General appearance: normal weight, no acute distress, he is sitting up and looks comfortable in chair. He is not having any respiratory problems now - Head Head exam: Present: normal inspection, normocephalic - Eye Eye exam: Present: EOMI. Absent: scleral icterus Pupils: Present: RASHID - ENT ENT exam: Present: other (He has marked decreased hearing) - Neck Neck exam: Present: normal inspection. Absent: lymphadenopathy, thyromegaly - Respiratory Respiratory exam: Present: clear to auscultation bilaterally. He has good breath sounds bilaterally without any definite rales or wheezing. - Cardiovascular Cardiovascular exam: Present: regular rate and rhythm. Absent: gallop, systolic murmur - GI/Abdominal GI/Abdominal exam: Present: normal bowel sounds, soft. Absent: distended, guarding, organomegaly, tenderness - Extremities Exam Extremities exam: His legs are about the same and they are nontender. - Back Exam Back exam: Absent: CVA tenderness (L), CVA tenderness (R) - Neurological Exam Neurological exam: Present: alert, oriented X3, he has no focal deficits. - Psychiatric Psychiatric exam: Present: normal affect, normal mood - Skin Skin exam: Present: warm, dry Results - Labs CBC & BMP: 01/26/17 17:21 01/29/17 01:27 - Diagnostic Findings Procedure: Ultrasound: report reviewed by me (His carotid Dopplers were negative.) Assessment and Plan (1) Dizziness Status: Resolved Assessment and plan: The patient has had some mild dizziness off and on lately and occasionally his blood pressure is a little on the low side. He is better now and his carotids are okay. 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 His INR is 1.9 today. Current Visit: No (3) Shortness of breath Status: Chronic Assessment and plan: Patient has chronic shortness of breath and at this point we have not been able to find the cause. His chest x-ray is clear and his lungs sound okay. His VQ scan looks normal. His echocardiogram shows good left ventricular function. His breathing is stable at present. Overall he looks like he stable medically. Current Visit: No (4) Chronic anticoagulation Status: Chronic Assessment and plan: He has been tolerating Coumadin fairly well. Current Visit: No (5) Renal insufficiency Status: Chronic Assessment and plan: His creatinine is 1.6 and stable. Current Visit: No (6) Kidney stone Status: Acute Assessment and plan: He has recently had lithotripsy and still has some stones. He will have a ureteroscope on Monday. He looks like he stable and should be able to tolerate the ureteroscopy Current Visit: Yes
--- NOTE | 2017-01-29 13:15 | Urology Progress Note ---
Assessment and Plan (1) Shortness of breath Status: Chronic Assessment and plan: I am not sure exactly what is going on. But he call my office complaining of shortness of breath and dizziness. My fear was that he was getting septic from these ureteral stones that he has but he does not appear toxic. He says that he saw Dr. Gordillo had a cold and was placed on antibiotics. I therefore put him in the hospital we will check her studies. I will consult the hospitalist and consult Dr. Gordillo. Current Visit: No Urology - PN: Subj Interval history: Patient is feeling well he did have some pelvic pain this morning. He had some bowel movements and I do not know if the pain was related to the bowel movement or ureteral stones. But we like to think it is to the stones. At any rate, I have discussed ureteroscopy with the patient and his . The procedure was explained at length and in detail. Risks, complications, outcomes, sequelae, prognosis and alternative therapy was discussed. Patient understood this and agreed to proceed. We will plan for this tomorrow morning. We will give him a dose of Cipro IV. Due to his age and his comorbidities I plan on watching him overnight on Monday night and let him go home on Monday. Exam - Constitutional Vitals: Period Temp Pulse Resp BP Sys/Madison Pulse Ox Last 24 Hr 96.8 F-98.4 F 51-68 16-20 107-141/43-68 95-100 Results - Labs CBC & BMP: 01/26/17 17:21 01/29/17 01:27
--- NOTE | 2017-01-29 14:59 | Hospitalist Progress Note ---
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 Continue coumadin Current Visit: No (2) Shortness of breath Status: Chronic Assessment and plan: VQ scan without PE, getting ble dopplers Pulmonary consulted Echo and carotid doppler without significant disease Placed on court monitor Checking orthostatic vitals Current Visit: No (3) Dizziness Status: Resolved Current Visit: No (4) Chronic anticoagulation Status: Chronic Current Visit: No (5) Kidney stone Status: Acute Assessment and plan: s/p lithotripsy Plan is for ureteroscopy tomorrow Current Visit: Yes Hospitalist: Subjective Interval history: No acute events overnight. Feeling a little better. Dizziness is improving. Getting orthostatic vitals and BLE dopplers due to edema. Exam - Constitutional Vitals: Period Temp Pulse Resp BP Sys/Madison Pulse Ox Last 24 Hr 96.8 F-98.4 F 51-68 16-20 107-141/43-68 95-100 General appearance: normal weight - Head Head exam: Present: normocephalic, atraumatic - Eye Eye exam: Present: EOMI Pupils: Present: RASHID - ENT ENT exam: Present: normal exam - Neck Neck exam: Present: normal inspection - Respiratory Respiratory exam: Present: clear to auscultation bilaterally. Absent: rhonchi, wheezes - Cardiovascular Cardiovascular exam: Present: regular rate and rhythm - GI/Abdominal GI/Abdominal exam: Present: normal bowel sounds, soft. Absent: tenderness, rebound - Extremities Exam Extremities exam: Present: edema - Back Exam Back exam: Present: normal inspection - Neurological Exam Neurological exam: Present: alert, oriented X3 - Psychiatric Psychiatric exam: Present: normal affect, normal mood - Skin Skin exam: Present: warm, intact Results - Labs CBC & BMP: 01/26/17 17:21 01/29/17 01:27 Quality Measures - VTE Contraindication to Mechanical VTE Prophylaxis: Current Diagnosis of DVT
--- NOTE | 2017-01-29 15:56 | Ultrasound Report ---
Exam: Bilateral lower extremity venous Doppler ultrasound Comparison: 07/21/2009 Clinical history: Leg edema Technique: Duplex scan of the lower extremity veins using B-mode/grayscale scaled imaging and Doppler spectral analysis and color flow. Findings: Color flow study and spectral analysis performed. There is normal compression and augmentation of bilateral common femoral. Chronic thrombus in both superficial femoral and popliteal veins with collateral veins. The proximal bilateral greater saphenous veins appear to be patent. Impression: Persistent evidence of chronic DVT with residual nonoccluding thrombus in both superficial femoral and popliteal veins. Collateral vessels noted. No progressive findings are identified. Ultrasound images were captured and stored. PROCEDURE INTERPRETED AT [facility] DEPARTMENT OF RADIOLOGY Final Report Signed by: Dr. Nisha Daugherty
[2017-01-29] MEDS: TAMSULOSIN 0.4 MG CAPSULE PO SCH (20:32)
[2017-01-30] MEDS: ALBUTEROL/IPRATROPIUM 3 ML NEB RESP TX SCH ×4 (00:22→18:19)
[2017-01-30 04:34] LABS: INR 1.4; PT Patient Result 14.8 SECS
[2017-01-30 04:51] LABS: Calcium 8.2 MG/DL (8.5-10.1); Magnesium 2.3 MG/DL (1.8-2.4); Osmolality,Calculated 292.3 MOS/KG (273-304); Potassium 4.4 MMOL/L (3.5-5.1)
[2017-01-30] MEDS ORDERED: CIPROFLOXACIN INJ 400 MG in PREMIX 1 EACH IV ONE (08:00)
--- NOTE | 2017-01-30 08:41 | Pulmonology Progress Note ---
Pulmonary - PN: Subj Interval history: Patient is an 89-year-old white man that has kidney stones. He came in because he is having episodes of shortness of breath and may be dizziness. He said he has had a fairly good night and his breathing is better. He is not having any headaches or dizziness now. He says he rested fairly well. He is going for a ureteroscopy today. His INR is down to 1.4. His venous Dopplers have been abnormal for a long time and he has chronic looking DVT. He should be okay for surgery and will restart anticoagulation after the scope. Exam (Progress Note) - Constitutional Vitals: Period Temp Pulse Resp BP Sys/Madison Pulse Ox Last 24 Hr 96.8 F-98.2 F 47-68 16-20 112-141/59-69 92-100 Exam: General appearance: normal weight, no acute distress, he is sitting up and looks comfortable lying in bed. - Head Head exam: Present: normal inspection, normocephalic - Eye Eye exam: Present: EOMI. Absent: scleral icterus Pupils: Present: RASHID - ENT ENT exam: Present: other (He has marked decreased hearing) - Neck Neck exam: Present: normal inspection. Absent: lymphadenopathy, thyromegaly - Respiratory Respiratory exam: Present: clear to auscultation bilaterally. He has good breath sounds bilaterally without any definite rales or wheezing. - Cardiovascular Cardiovascular exam: Present: regular rate and rhythm. Absent: gallop, systolic murmur - GI/Abdominal GI/Abdominal exam: Present: normal bowel sounds, soft. Absent: distended, guarding, organomegaly, tenderness - Extremities Exam Extremities exam: His legs are about the same and they are nontender. - Back Exam Back exam: Absent: CVA tenderness (L), CVA tenderness (R) - Neurological Exam Neurological exam: Present: alert, oriented X3, he has no focal deficits. 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 His INR is 1.4 today. His Coumadin is being held for surgery Current Visit: No (2) Shortness of breath Status: Chronic Assessment and plan: Patient has chronic shortness of breath and at this point we have not been able to find the cause. His chest x-ray is clear and his lungs sound okay. His VQ scan looks normal. His echocardiogram shows good left ventricular function. His breathing is stable at present. He does not seem to be having any hypoxemia or shortness of breath now. Current Visit: No (3) Chronic anticoagulation Status: Chronic Assessment and plan: He has been tolerating Coumadin fairly well. Current Visit: No (4) Renal insufficiency Status: Chronic Assessment and plan: His creatinine is 1.8 and stable. Current Visit: No (5) Kidney stone Status: Acute Assessment and plan: He has recently had lithotripsy and still has some stones. He will have a ureteroscope today. He says he is feeling reasonably well overall. Current Visit: Yes
--- NOTE | 2017-01-30 09:31 | Operative Note ---
Date of procedure: 01/30/17 Pre-op diagnosis: Right ureteral calculus Post-op diagnosis: same Procedure: 89-year-old white male who is failed lithotripsy has a 10-12 mm right distal ureteral stone. He has passed a few of the fragments from previous lithotripsy. He is now brought for ureteroscopy and laser fragmentation and stenting. The procedure was explained at length to the patient, and daughter. Risks, complications, outcomes, sequelae, prognosis and alternative therapy was discussed. Patient understood this and agreed to proceed. Patient brought the operative suite given a general LMA anesthetic and placed in lithotomy position prepared and draped in usual sterile manner. 25 Turk[place] cystourethroscope passed under direct vision. Urethra and prostate and bladder were unchanged. The right ureteral orifice is inflamed as one can see when passing fragments. Retrograde pyelogram was obtained. The previous distal fragments and passed the main body of the stone is seen in the distal ureter. There is minimal hydro-if any. A guidewire was then passed up to the renal pelvis. Cystoscope was removed. Ureteroscope was advanced under video monitoring. The ureteral orifice cannulated and the ureteroscope is advanced to the stone. 365 mcm laser fiber was then passed through the ureteroscope. Using 8 W the stone is in fragmented into fragments that I think to pass. Following this ureteroscope was then removed. Bladder was drained. A 6 Turkmen 24 cm stents placed with fluoroscopic control. The pull string is taped to the penis. Patient tolerates procedure well was awakened anesthesia and sent to the recovery room in stable condition. All sponge, needle and instrument counts correct 2. Implants: 6 Turk[place] 24 cm ureteral stent, right Anesthesia: GETA Surgeon / Physician: Mark Higginbotham Estimated blood loss: other (1 cc) Specimens: none sent Condition: stable Disposition: PACU Results - Labs CBC & BMP: 01/26/17 17:21 01/30/17 03:24 Discharge Plan - Discharge Medications No Action Warfarin Sodium 2.5 mg PO QPM Fluticasone 50 Mcg Nasal [place] [Flonase Nasal [place]] 2 spray BOTH NARES QAM Azelastine Nasal 137 Mcg/[place] [Astelin Nasal [place]] 2 spray BOTH NARES BID Tamsulosin [Flomax] 0.4 mg PO BEDTIME Clotrimazole/Betamethasone Dip [Clotrimazole/Betamethasone Cream] 15 gm TOP BID Sotalol [Betapace] 40 mg PO BID #60 tablet Azithromycin 500 mg PO DAILY Loratadine [Claritin] 10 mg PO DAILY Ciprofloxacin Tab [Cipro Tab] 500 mg PO BID - Follow Up or Referral - Forms/Instructions
[2017-01-30] MEDS ORDERED: SEVOFLURANE 1 UNIT/15 MINUTE INH ONE (09:47)
[2017-01-30] MEDS ORDERED: PROPOFOL 200 MG/20 ML VIAL IV ONE (09:47)
[2017-01-30] MEDS ORDERED: MIDAZOLAM 2 MG/2 ML VIAL ONE (09:48)
[2017-01-30] MEDS ORDERED: fentaNYL 100 MCG/2 ML VIAL ONE (09:48)
[2017-01-30] MEDS ORDERED: ONDANSETRON 4 MG/2 ML VIAL ONE (09:48)
[2017-01-30] MEDS ORDERED: LIDOCAINE 2% TOP JELLY 20 ML VIAL INTRAURETH ONE (10:14)
--- NOTE | 2017-01-30 10:39 | Anesthesia Post-Op ---
Anesthesia Post OP - Post Ansesthetic Evaluation Patient seen in post op: Yes Resp: within normal limits CV: within normal limits Mental: within normal limits Temp: within normal limits [id number]: within normal limits Nausea and Vomiting: within normal limits Pain: within normal limits
[2017-01-30] MEDS: CIPROFLOXACIN 500 MG TABLET PO SCH ×2 (11:07→22:25)
[2017-01-30] MEDS: SOTALOL 80 MG TABLET PO SCH ×2 (11:07→22:25)
[2017-01-30] MEDS: methylPREDNISolone SOD SUC 40 MG/1 ML VIAL IV SCH ×2 (11:07→22:24)
[2017-01-30] MEDS: CLOTRIMAZOLE/BETAMETHASONE CREAM 15 GM TUBE TOP SCH ×2 (11:08→22:27)
[2017-01-30] MEDS: LORATADINE 10 MG TABLET PO SCH (11:08)
[2017-01-30] MEDS: AZELASTINE NASAL 137 MCG/SPRAY 30 ML BOTTLE BOTH NARES SCH ×2 (11:08→22:25)
[2017-01-30] MEDS: SODIUM CHLORIDE 0.9% 1,000 ML IV SCH ×3 (11:09→23:26)
[2017-01-30] MEDS: FLUTICASONE 50 MCG NASAL SPRAY 16 GM BOTTLE BOTH NARES SCH (11:09)
--- NOTE | 2017-01-30 13:24 | Fluoroscopy Report ---
FL retrograde pyelogram Indication: Placement of right ureter stent. Right retrograde pyelogram Fluoroscopy time 1 minute 15 seconds. 3 captured images. Retrograde right nephroureterogram shows a filling defect of the distal right ureter that is eccentric and has a stricture-like appearance. The Last image shows placement of double-J ureteral stent. Impression: Double-J ureter stent as described. PROCEDURE INTERPRETED AT [facility] DEPARTMENT OF RADIOLOGY Final Report Signed by: Jacobo Torres M.D.
--- NOTE | 2017-01-30 15:13 | Hospitalist Progress Note ---
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 coumadin currently on hold. Should be able to restart tomorrow. Current Visit: No (2) Shortness of breath Status: Chronic Assessment and plan: VQ scan without PE, getting ble dopplers Pulmonary consulted Echo and carotid doppler without significant disease Placed on ekg monitor tech Current Visit: No (3) Dizziness Status: Resolved Current Visit: No (4) Chronic anticoagulation Status: Chronic Current Visit: No (5) Kidney stone Status: Acute Assessment and plan: s/p lithotripsy s/p right stent placement today Current Visit: Yes (6) Orthostatic hypotension Status: Resolved Current Visit: No Hospitalist: Subjective Interval history: No acute events overnight. Patient had a right ureteral stent placed today by urology. As far as his dizziness goes, patient does have orthostatic hypotension , most likely related to aging. He was previously worked up by cardiology for this at his last admission this same month. He was started on florinef 0.1mg BID for this, which is no longer listed on his home medication list. Will discuss this with his family and restart as appropriate. Patient is possible for discharge tomorrow which is ok with me medically. Exam - Constitutional Vitals: Period Temp Pulse Resp BP Sys/Madison Pulse Ox Last 24 Hr 97 F-98.2 F 47-63 16-20 112-139/60-72 92-100 General appearance: normal weight - Head Head exam: Present: normocephalic, atraumatic - Eye Eye exam: Present: EOMI Pupils: Present: RASHID - ENT ENT exam: Present: normal exam - Neck Neck exam: Present: normal inspection - Respiratory Respiratory exam: Present: clear to auscultation bilaterally. Absent: rhonchi, wheezes - Cardiovascular Cardiovascular exam: Present: regular rate and rhythm - GI/Abdominal GI/Abdominal exam: Present: normal bowel sounds, soft. Absent: tenderness, rebound - Extremities Exam Extremities exam: Present: normal inspection - Back Exam Back exam: Present: normal inspection - Neurological Exam Neurological exam: Present: alert, oriented X3 - Psychiatric Psychiatric exam: Present: normal affect, normal mood - Skin Skin exam: Present: warm, intact Results - Labs CBC & BMP: 01/26/17 17:21 01/30/17 03:24 Quality Measures - VTE Contraindication to Mechanical VTE Prophylaxis: Current Diagnosis of DVT
[2017-01-30] MEDS: TAMSULOSIN 0.4 MG CAPSULE PO SCH (22:25)
[2017-01-31] MEDS: ALBUTEROL/IPRATROPIUM 3 ML NEB RESP TX SCH ×2 (00:08→08:20)
[2017-01-31] MEDS: CIPROFLOXACIN 500 MG TABLET PO SCH (08:54)
[2017-01-31] MEDS: methylPREDNISolone SOD SUC 40 MG/1 ML VIAL IV SCH (08:54)
[2017-01-31] MEDS: LORATADINE 10 MG TABLET PO SCH (08:54)
[2017-01-31] MEDS: AZELASTINE NASAL 137 MCG/SPRAY 30 ML BOTTLE BOTH NARES SCH (08:55)
[2017-01-31] MEDS: FLUTICASONE 50 MCG NASAL SPRAY 16 GM BOTTLE BOTH NARES SCH (08:55)
[2017-01-31] MEDS: SOTALOL 80 MG TABLET PO SCH (08:56)
[2017-01-31] MEDS: CLOTRIMAZOLE/BETAMETHASONE CREAM 15 GM TUBE TOP SCH (09:14)
--- NOTE | 2017-01-31 09:18 | Discharge Summary ---
Hospital Course - Hospital Course Hospital Course: 89-year-old gentleman known to me. Prostate cancer and a right ureteral stone. He had failed lithotripsy. He called complaining of being dizzy. I feared he was becoming septic and we admitted him the hospital. The hospitalist and Dr. Gordillo were consulted. His urine culture was negative and they treated him worked him up. They found no distinct problem other than the stone. While he was here I recommended we perform ureteroscopy and laser fragmentation which we did. He had a rather hard right distal ureteral stone but we fragmented it well and stented him. He is now 24 hours post procedure and doing well. He has not passed any fragments which I am not surprised considering he is got a stent. We will discharge him to see him in the office in 2 weeks. He will see my nurse on and she will remove the stent. He may restart his Coumadin on evening. I will write Sidman 5 mg, #20, 1-2 every 4-6 hours as needed pain. He is to continue all his other medicines. - Time spent with patient Time with patient DS: Greater than 30 minutes Diagnosis - Discharge Diagnosis (1) Shortness of breath Status: Chronic (2) Ureteral calculus Status: Acute Discharge Plan - Discharge Data Disposition: Disch To Home/Self Care Condition at Discharge: Stable Discharge Diet: regular diet Activity: resume usual activities as tolerated Hygiene: no restrictions Weight Bearing at Discharge: full weight bearing Driving: no restrictions Contact your physician if you experience:: fever over 101, Bleeding, pain uncontrolled by pain medications - Discharge Medications New HYDROcodone/ACETAMIN 5-325 [[place] 5-325] 1 tablet PO Q4H PRN tablet PRN Reason: Pain Moderate (4-7) Tamsulosin [Flomax] 0.4 mg PO BEDTIME capsule HYDROcodone/ACETAMIN 5-325 [[place] 5-325] 2 tablet PO Q4H PRN tablet PRN Reason: Pain Moderate (4-7) Continue Fluticasone 50 Mcg Nasal [place] [Flonase Nasal [place]] 2 spray BOTH NARES QAM Azelastine Nasal 137 Mcg/[place] [Astelin Nasal [place]] 2 spray BOTH NARES BID Clotrimazole/Betamethasone Dip [Clotrimazole/Betamethasone Cream] 15 gm TOP BID Sotalol [Betapace] 40 mg PO BID #60 tablet Loratadine [Claritin] 10 mg PO DAILY Ciprofloxacin Tab [Cipro Tab] 500 mg PO BID Discontinued Tamsulosin [Flomax] 0.4 mg PO BEDTIME No Action Warfarin Sodium 2.5 mg PO QPM Azithromycin 500 mg PO DAILY - Follow Up or Referral - Forms/Instructions Exam - Constitutional Vitals: Period Temp Pulse Resp BP Sys/Madison Pulse Ox Last 24 Hr 97 F-98.2 F 48-61 16-20 109-139/48-74 92-100 DS: Provider Date of admission: 01/26/17 14:34 Primary care physician: Chester Gordillo, Attending physician on admission: Mark Higginbotham MD Consults: 01/26/17 16:45 Consult to Physician [CONS] Routine Comment: Consulting Provider: Ernesto Bang Consult to Specialist Group: Hospitalist Person Notified: mecca richmond NP Date Notified: 01/26/17 Time Notified: 16:30 01/26/17 17:55 Consult to Physician [CONS] Routine Comment: sob, pt of yours Consulting Provider: Chester Gordillo Person Notified: aware Date Notified: 01/27/17 Time Notified: 08:05 Discharging clinician: Mark Higginbotham MD
--- NOTE | 2017-01-31 10:02 | Pulmonology Progress Note ---
Pulmonary - PN: Subj Interval history: Patient is an 89-year-old white man that has kidney stones. He had a ureteroscopy yesterday and had the stone busted up. He did fairly well with the procedure yesterday. He says he is feeling better and not having any increased shortness of breath. His vital signs have been stable. He says he wants to try to go home today. Exam (Progress Note) - Constitutional Vitals: Period Temp Pulse Resp BP Sys/Madison Pulse Ox Last 24 Hr 97 F-98.2 F 48-67 16-22 109-139/48-74 92-98 Exam: General appearance: normal weight, no acute distress, he is comfortable lying in bed and in no distress. - Head Head exam: Present: normal inspection, normocephalic - Eye Eye exam: Present: EOMI. Absent: scleral icterus Pupils: Present: RASHID - ENT ENT exam: Present: other (He has marked decreased hearing) - Neck Neck exam: Present: normal inspection. Absent: lymphadenopathy, thyromegaly - Respiratory Respiratory exam: Present: clear to auscultation bilaterally. He has good breath sounds bilaterally without any definite rales or wheezing. - Cardiovascular Cardiovascular exam: Present: regular rate and rhythm. Absent: gallop, systolic murmur - GI/Abdominal GI/Abdominal exam: Present: normal bowel sounds, soft. He has no tenderness. Absent: distended, guarding, organomegaly, tenderness - Extremities Exam Extremities exam: His legs are about the same and they are nontender. - Back Exam Back exam: Absent: CVA tenderness (L), CVA tenderness (R) - Neurological Exam Neurological exam: Present: alert, oriented X3, he has no focal deficits. 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 His INR is 1.4 today. He is started back on his Coumadin now. Current Visit: No (2) Shortness of breath Status: Chronic Assessment and plan: Patient has chronic shortness of breath and at this point we have not been able to find the cause. He is not having any increased problems and his lungs sound clear today. Will continue with his present therapy. Current Visit: No (3) Chronic anticoagulation Status: Chronic Assessment and plan: He has been tolerating Coumadin fairly well. His Coumadin will be restarted. Current Visit: No (4) Renal insufficiency Status: Chronic Assessment and plan: His creatinine is 1.8 and stable. He says he is voiding okay. Current Visit: No (5) Kidney stone Status: Acute Assessment and plan: He has recently had lithotripsy and still has some stones. He did well with the ureteroscopy and seems to be stable now. Current Visit: Yes Specialty Discharge - Follow Up or Referrals Follow up with: Mark Higginbotham MD [Physician] - 02/16/17 2:00 pm
--- NOTE | 2017-01-31 10:16 | Hospitalist Progress Note ---
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 coumadin currently on hold. Per urology will restart Current Visit: No (2) Shortness of breath Status: Chronic Assessment and plan: VQ scan without PE, getting ble dopplers Pulmonary assisting Echo and carotid doppler without significant disease Now resolved Current Visit: No (3) Dizziness Status: Resolved Current Visit: No (4) Chronic anticoagulation Status: Chronic Current Visit: No (5) Kidney stone Status: Acute Assessment and plan: s/p lithotripsy s/p right stent placement 01/30/17 Current Visit: Yes (6) Orthostatic hypotension Status: Resolved Current Visit: No Hospitalist: Subjective Interval history: No acute events overnight. No reports of dizziness overnight, but patient also has not been up. He is to be discharged today with continuation of his home medications. Per urology, he can restart his coumadin . Exam - Constitutional Vitals: Period Temp Pulse Resp BP Sys/[place]ison Pulse Ox Last 24 Hr 97 F-98.2 F 48-67 16-22 109-139/48-74 92-98 General appearance: normal weight - Head Head exam: Present: normocephalic, atraumatic - Eye Eye exam: Present: EOMI Pupils: Present: RASHID - ENT ENT exam: Present: normal exam - Neck Neck exam: Present: normal inspection - Respiratory Respiratory exam: Present: clear to auscultation bilaterally - Cardiovascular Cardiovascular exam: Present: regular rate and rhythm - GI/Abdominal GI/Abdominal exam: Present: normal bowel sounds, soft. Absent: tenderness, rebound - Extremities Exam Extremities exam: Present: normal inspection - Back Exam Back exam: Present: normal inspection - Neurological Exam Neurological exam: Present: alert, oriented X3 - Psychiatric Psychiatric exam: Present: normal affect, normal mood - Skin Skin exam: Present: warm, intact Results - Labs CBC & BMP: 01/26/17 17:21 01/30/17 03:24 Quality Measures - VTE Contraindication to Mechanical VTE Prophylaxis: Current Diagnosis of DVT Specialty Discharge - Follow Up or Referrals Follow up with: Mark Higginbotham MD [Physician] - 02/16/17 2:00 pm
[2017-01-31 11:12] VITALS: BP 117/61
[2017-01-31] MEDS: SODIUM CHLORIDE 0.9% 1,000 ML IV SCH (13:25)
== END 2017-01-31 11:00 | disposition home or self-care (01) | DRG 694 ==
LOC: N.5E 14:34
PROVIDERS: ADMIT Urology; ATTEND Urology

== ENCOUNTER 2017-02-08 08:01 | Inpatient (IN) ==
[2017-02-08] MEDS ORDERED: MAGNESIUM SULF RIDER 2 GM in PREMIX 1 EACH IV PRN (09:46)
[2017-02-08] MEDS ORDERED: POTASSIUM CHLORIDE 20 MEQ TABLET PO PRN (09:46)
[2017-02-08] MEDS ORDERED: ZALEPLON 5 MG CAPSULE PO PRN (09:46)
[2017-02-08] MEDS ORDERED: ACETAMINOPHEN 325 MG TABLET PO PRN (09:46)
[2017-02-08] MEDS ORDERED: ONDANSETRON 4 MG/2 ML VIAL IV PRN (09:46)
[2017-02-08] MEDS ORDERED: DOCUSATE SODIUM 100 MG CAPSULE PO PRN (09:46)
[2017-02-08] MEDS ORDERED: MAGNESIUM SULF RIDER 4 GM in PREMIX 1 EACH IV PRN (09:46)
--- NOTE | 2017-02-08 09:57 | EKG Report ---
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
[2017-02-08 10:13] LABS: Basophils % 0.1 % (0.0-0.8); Hematocrit 34.7 VOL% (42.0-52.0); Hemoglobin 11.5 GM/DL (14.0-18.0); Immature Granulocytes % 0.4 %; Immature Granulocytes Absolute 0.05 #; Lymphocytes # 0.9 10*3/uL (1.4-4.0); Lymphocytes % 7.6 % (21.2-54.2); Mean Corpuscular HGB Conc 33.1 GM/DL (32-36); Mean Corpuscular Hemoglobin 31 PG (27-34); Mean Corpuscular Volume 93.3 FL (87-102); Mean Platelet Volume 10.6 FL (9.6-12.0); Monocytes # 0.7 10*3/uL (0.11-0.8); Monocytes % 6.1 % (1.7-12.7); Neutrophils # 9.7 10*3/uL (1.4-7.4); Neutrophils % 85.8 % (38.7-73.9); Platelet Count 130 T/CUMM (130-400); Red Blood Count 3.72 MC/CUMM (3.8-5.5); Red Cell Distribution Width 13.7 % (9.3-17.3); White Blood Count 11.4 T/CUMM (4-12)
[2017-02-08 10:22] LABS: INR 1.3; PT Patient Result 13.6 SECS
[2017-02-08] MEDS ORDERED: ceFAZolin 1,000 MG VIAL IRRIG ONE (10:29)
[2017-02-08] MEDS: PANTOPRAZOLE 40 MG TABLET PO SCH (10:41)
[2017-02-08 10:51] LABS: Alanine Aminotransferase 14 U/L (16-61); Albumin 2.4 G/DL (3.4-5.0); Alkaline Phosphatase 53 U/L (45-117); Aspartate Amino Transferase 13 U/L (0-37); Bilirubin,Total < 0.39 MG/DL (0.2-1.0); Blood Urea Nitrogen 22 MG/DL (7-18); Calcium 8.1 MG/DL (8.5-10.1); Glucose 137 MG/DL (74-106); Osmolality,Calculated 285.3 MOS/KG (273-304); Potassium 4.3 MMOL/L (3.5-5.1); Sodium 141 MMOL/L (136-145); Total Protein 5.3 G/DL (6.4-8.3)
--- NOTE | 2017-02-08 10:51 | Cardiology History & Physical ---
Assessment and Plan - Time spent with patient Time spent with patient: Greater than 30 minutes (due to assessment, plan, and documentation) (1) Sick sinus syndrome Status: Acute Assessment and plan: See plan of care listed below. Current Visit: Yes (2) Paroxysmal atrial fibrillation Status: Chronic Assessment and plan: See plan of care listed below. Current Visit: No (3) SVT (supraventricular tachycardia) Status: Resolved Assessment and plan: See plan of care listed below. Current Visit: No (4) History of DVT in adulthood Status: Chronic Assessment and plan: See plan of care listed below. Current Visit: No (5) Chronic anticoagulation Status: Chronic Assessment and plan: See plan of care listed below. Current Visit: No (6) Renal insufficiency Status: Chronic Assessment and plan: See plan of care listed below. Current Visit: No (7) Orthostatic hypotension Status: Resolved Assessment and plan: See plan of care listed below. Current Visit: No (8) Advanced age Status: Chronic Assessment and plan: See plan of care listed below. Current Visit: Yes (9) Lower extremity edema Status: Acute Assessment and plan: See plan of care listed below. Current Visit: No History of Present Illness Chief complaint: Sick sinus syndrome, bradycardia, dizziness History of present illness: [employer] Consultant: Dr. Foster PCP: none Mr. Mart is a 89 year old male with a history of paroxysmal atrial fibrillation, paroxysmal SVT, orthostatic hypotension, history of DVT on chronic anticoagulation with Coumadin, pre-syncope, renal insufficiency, severely hearing impaired with bilateral hearing aids. Risk factors are significant for: age, sedentary lifestyle. He was recently seen by Dr. Foster for hospital follow up on 01/18/17 after being admitted for dizziness and dyspnea. He was found to have orthostatic hypotension at that time and also had runs of SVT as well as sinus bradycardia. He was started on sotalol and placed on a 30 day holter monitor. He was referred to pulmonology (Dr. Gordillo ) for further evaluation of his shortness of breath. Mr. Mart has been wearing a holter monitor for the past 30 days and this morning, he was noted to have a 7.[address] Foster notified the patient and his family and he was instructed to report to the emergency room for further evaluation. He was admitted to cardiology service for further evaluation of sick sinus syndrome. Mr. Brittny tells me this morning he went to the bathroom and felt very weak and dizzy. He tells me he is surprised he made it back to bed to sit down because he felt as if he was going to pass out. He denies any chest pain at present. He recently underwent nuclear stress testing on 01/05/17 which revealed no evidence of ischemia. Carotid ultrasound on 01/04/17 revealed 1039% stenosis in the proximal right and left carotid arteries. Echocardiogram on 01/26/17 revealed EF 60% with no regional wall motion abnormality, grade 1 diastolic dysfunction, mild TR. EKG today reveals sinus bradycardia. H&H is stable at 11.5 and 34.7. WBC normal. CMP, CXR, and U/A pending. ASSESSMENT/PLAN: 1. SICK SINUS SYNDROME- The patient has been seen in conjunction by myself and Dr. Gottlieb. Due to his 7.4 second pause and history of PSVT, we will proceed with dual chamber pacemaker implantation by Dr. Gottlieb today. Risks and benefits of the procedure were discussed with the family in detail. 2. PAROXYSMAL ATRIAL FIBRILLATION - Will proceed with dual chamber pacemaker. Anticipate resuming patient's sotalol and digoxin for optimal rate control. 3. PAROXYSMAL SVT - Has been on Digoxin and Sotalol. 4. HISTORY OF DVT - On chronic anticoagulation with coumadin. 5. CHRONIC ANTICOAGULATION - Subtherapeutic INR of 1.3. On Coumadin 2.5mg PO QHS. Will continue coumadin and proceed with dual chamber pacemaker today. 6. RENAL INSUFFICIENCY - Chronic, BMP pending. Creatinine from 01/30/17 1.8 with GFR 39. Patient is also incontinent of urine. Will check urinalysis. 7. ORTHOSTATIC HYPOTENSION - Has been on Florinef which seems to have improved his symptoms; however, he had worsening BLE edema. Florinef was d/c'd and he was started on Midodrine. 8. ADVANCED AGE Home Medications Medication Instructions Recorded Confirmed Type Azelastine Nasal 137 Mcg/Glynn 2 spray BOTH NARES BID 01/31/15 02/08/17 History [Astelin Nasal Glynn] Fluticasone 50 Mcg Nasal Glynn 2 spray BOTH NARES QAM 01/31/15 02/08/17 History [Flonase Nasal Glynn] Warfarin Sodium 2.5 mg PO BEDTIME 01/31/15 02/08/17 History Sotalol [Betapace] 40 mg PO BID #60 tablet 01/14/17 02/08/17 Rx Loratadine [Claritin] 10 mg PO DAILY PRN 01/26/17 02/08/17 History Digoxin [Digitek] 125 mcg PO DAILY 02/08/17 02/08/17 History Allergies Allergy/AdvReac Type Severity Reaction Status Date / Time No Known Allergies Allergy Verified 02/02/17 10:30 Review of systems: - Constitutional: Present: fatigue, weakness, As per HPI. Absent: anorexia, chills, daytime sleepiness, excessive sweating, fever(s), frequent falls, headache(s), increased appetite, lethargy, malaise, night sweats, stops breathing during sleep, weight gain, weight loss. - EENT Eyes: Present: As per HPI. Absent: blurry vision, diplopia, loss of vision Ears: Present: decreased hearing, As per HPI. Absent: ear discharge, ear pain Nose, mouth and throat: Present: As per HPI. Absent: dysphagia, epistaxis, headache(s), hoarseness, lip swelling, nasal congestion, neck mass, neck pain, sinus pressure, sore throat, throat swelling, tongue swelling, vertigo - Cardiovascular: Present: dyspnea, dyspnea on exertion, edema, lightheadedness , as per HPI. Absent: chest pain at rest, chest pain with activity, claudication, diaphoresis, radiating jaw, neck or arm pain, orthopnea, palpitations, PND - Respiratory: Present: dyspnea, dyspnea on exertion, as per HPI. Absent: cough , hemoptysis, wheezing, snoring, pain on inspiration - Gastrointestinal: Present: As per HPI. Absent: abdominal pain, bloating, change in bowel habits, constipation, diarrhea, heartburn, hematemesis, hematochezia, loose stools, melena, nausea, vomiting - Genitourinary: Present: urinary incontinence, difficulty urinating, As per HPI. Absent: dysuria, flank pain, hematuria, nocturia, urinary frequency - Musculoskeletal: Present: As per HPI. Absent: arthralgias, back pain, joint swelling, limited range of motion, muscle cramps, muscle weakness, myalgias - Neurological: Present: dizziness, near syncope, As per HPI. Absent: abnormal gait, abnormal speech, behavioral changes, confusion, convulsions, disequilibrium, focal weakness, frequent falls, headache(s), memory loss, numbness, paresthesias, radicular pain, tremor(s) - Psychiatric: Present: As per HPI. Absent: anxiety, confusion, depression, panic attacks - Endocrine: Present: fatigue, As per HPI. Absent: cold intolerance, heat intolerance, polydipsia, polyphagia - Hematologic/Lymphatic: Present: easy bleeding, As per HPI. Absent: easy bruising, lymphadenopathy Medical,Surgical,& Family Hx - Medical History Cardio: History of: Cardiac Dysrhythmia (AFIB ), PVD (DVT) Neurology: No history of: Seizures HEENT: History of: Ear Problem (METLAKATLA), Eye Problem (GLASSES) Rheumatology: History of;: Systemic Lupus Erythematosus Genitourinary: History of: Kidney Stones, Genitourinary Cancer (Prostate cancer) Gastrointestinal: History of: GERD, GI Problems (constipation) Musculoskeletal: History of: Musculoskeletal Problems (left hip need replacement ) Hematology: History of: Blood Transfusion Reaction Other: History of: Cancer (Prostate), Skin Problems (multiple skin cancers) - Surgical History Thoracic Surgeries: Surgical HX of;: Lithotripsy HEENT Surgeries: Surgical HX of: Eye Surgery (Bilateral cataracts), Tonsilectomy & Adenoidectomy Abdominal Surgeries: Surgical HX of: Hernia Repair Reproductive Surgeries: Surgical HX of;: Prostate Surgery - Family History Family History: Reports;: Family Cancer (Sister), Family Heart Disease, Family Hypertension - Social History Smoking Status: Never smoker Frequency of Alcohol Use: None Type of Drug Use: None Marital Status: Lives With:: Spouse Cardiology Physical Exam - Constitutional Vitals: Vital Signs Temp Pulse Resp BP Pulse Ox 97.3 F L 56 L 20 117/57 97 02/08/17 09:45 02/08/17 09:45 02/08/17 09:45 02/08/17 09:45 02/08/17 09:45 Exam: General appearance: Pleasant and cooperative. Normal weight, no acute distress. - Head Head exam: Present: normal inspection, normocephalic, atraumatic. Absent: hematoma, laceration - Eye Eye exam: Present: EOMI. Absent: conjunctival injection, nystagmus, periorbital swelling, scleral icterus, laceration to eyelids Pupils: Present: PERRL. Absent: constricted, dilated, fixed, irregular, unequal - ENT ENT exam: Present: normal exam, normal external ear exam, very hard of hearing. Bilateral hearing aids present. - Neck Neck exam: Present: normal inspection. Absent: lymphadenopathy, meningismus, tenderness, thyromegaly - Respiratory Respiratory exam: Present: clear to auscultation bilaterally. Absent: accessory muscle use, chest wall tenderness - Cardiovascular Cardiovascular exam: Present: regular rate and rhythm, bradycardia. Absent: carotid bruit, gallop, JVD, rubs, murmur - GI/Abdominal GI/Abdominal exam: Present: normal bowel sounds, soft. Absent: distended, firm , guarding, hernia, mass, tenderness, rebound. - Extremities Exam Extremities exam: Present: normal inspection, normal capillary refill. Upper extremity pulses 2+. Lower extremity pulses 2+. 3+ pitting edema to BLE. Absent : calf tenderness -Musculoskeletal Exam Musculoskeletal: Present: No Fluid Collection, No Pain, Normal Range of Motion - Back Exam Back exam: Present: normal inspection. Absent: muscle spasm, vertebral tenderness - Neurological Exam Neurological exam: Present: alert, oriented X3, grossly intact without resting or essential tremor - Psychiatric Psychiatric exam: Present: normal affect, normal mood - Skin Skin exam: Present: normal color, warm, dry, intact. Absent: cyanosis, diaphoretic, rash, urticaria Result/EKG - Labs CBC & BMP: 02/08/17 10:05 Lab Results: I have reviewed the past 24 hour labs Labs: Laboratory Results - last 24 hr 02/08/17 02/08/17 10:05 10:05 WBC 11.4 RBC 3.72 L Hgb 11.5 L Hct 34.7 L MCV 93.3 MCH 31 MCHC 33.1 RDW 13.7 Plt Count 130 MPV 10.6 Neut % (Auto) 85.8 H Lymph % (Auto) 7.6 L Woodson % (Auto) 6.1 Eos % (Auto) 0.0 Baso % (Auto) 0.1 Neut # (Auto) 9.7 H Lymph # (Auto) 0.9 L Woodson # (Auto) 0.7 Eos # (Auto) 0.0 Baso # (Auto) 0.0 Immature Gran % 0.4 Nucleated RBC % 0.0 Immature Gran # 0.05 Nucleated RBCs # 0.00 INR 1.3 PT Patient/Control Mix 13.6 - EKG EKG results: interpreted by me, sinus rhythm EKG shows: bradycardia
[2017-02-08] MEDS ORDERED: LIDOCAINE 1% 20 ML VIAL ONE (11:36)
[2017-02-08] MEDS ORDERED: MIDAZOLAM 2 MG/2 ML VIAL ONE (11:36)
[2017-02-08] MEDS ORDERED: ceFAZolin 1,000 MG VIAL ONE (11:36)
[2017-02-08] MEDS ORDERED: fentaNYL 100 MCG/2 ML VIAL ONE (11:36)
[2017-02-08] MEDS ORDERED: HEPARIN/NACL 0.9% 2 UNITS/ML 500 ML IV ONE (11:37)
--- NOTE | 2017-02-08 11:58 | History and Physical Update ---
Sedation H&P Update - History and Physical H&P was reviewed, the patient examined and there: are no changes in the patients condition since last H&P was completed. - Dictation Physical: refer to scanned H&P - Physical Exam Mental Status: alert and oriented Heart: other (regular sandrita) Lung: clear to auscultation Abdomen: within normal limits Vitals: within normal limits - Sedation Plan for Sedation: moderate Patient Consent: Procedure disscussed with patient and patinet has consented., Risks and benefits were discussed with patient,including infection,, bleeding, injury to surrounding structures, seizure, temporary nerve, Patient understands and accepts potential risks/benefits and agrees to ASA Class: III Airway Assessment: Class II: Soft palate, uvula, fauces visible
--- NOTE | 2017-02-08 12:06 | XRay Report ---
XR chest 1V portable Indication: Shortness of breath Comparison: Chest x-ray 02/02/2017 Technique: Portable AP chest was performed. Findings: The heart size appears within normal limits. Pulmonary vasculature demonstrates no specific abnormality. Hilar structures demonstrate fairly symmetric appearance. The lungs demonstrate minimal worsening of peripheral opacity in the lung bases which not partially skiers left hemidiaphragm. Mid-upper lungs are clear. Bones and soft tissues demonstrate no evidence of acute pathology. Impression: 1. Minimal worsening of parenchymal opacity in the left lung base has differential considerations including worsening atelectasis, edema, and infection. 02/08/2017 12:02 PM PROCEDURE INTERPRETED AT [facility] DEPARTMENT OF RADIOLOGY Final Report Signed by: Dr. Nick Lima
[2017-02-08] MEDS ORDERED: TISSUE ADHESIVE 1 EACH APPLICATOR TOP ONE (12:47)
[2017-02-08] MEDS ORDERED: oxyCODONE/ACETAMINOPHEN 5-325 MG TABLET PO PRN (12:59)
--- NOTE | 2017-02-08 13:09 | Cardiac Pacemaker ---
- Preoperative diagnosis Date of Procedure:: 02/08/17 Preoperative Diagnosis: Documented nonreversible symptomatic bradycardia due to , sinus node dysfunction Pre-op Diagnosis: +PAF Post-op diagnosis: same Procedure: PROCEDURE SUMMARY DDD pacemaker implant from left axillary vein access. PLAN Bed rest for 4 hours. Routine post pacemaker implant site care and activity restrictions. Do not remove pressure dressing until AM. Portable CXR, EKG stat. CXR PA/Lat, device interrogation in AM. Ancef 1g iv. q8h x2. PROCEDURE Informed consent was obtained and a timeout was performed prior to the procedure. The patient was continuously monitored by ECG, pulse oxymetry and NIBP. 1g iv. Ancef was administered prior to the procedure for antibiotic prophylaxis. Moderate conscious sedation was initiated and maintained with iv. Versed and Fentanyl, for 55 minutes. The left pectoral area was meticulously prepared with ChloroPrep surgical scrub. Sterile draping was applied and Ioban was used to cover the operation site. The image intensifier was draped with a sterile bag and positioned over the patient's chest. A left subclavian venogram was obtained with 10 cc. iv contrast. The left axillary and subclavian veins and the SVC were patent. After infiltration with 1% lidocaine, an incision was made in the left infraclavicular area, parallel to the deltopectoral groove. The incision was carried down to the level of the pectoral fascia. A subcutaneous pocket was then created with electrocautery and blunt dissection. Hemostasis was then achieved with electrocautery. A micropuncture needle was used to access the left axillary vein under fluoroscopic guidance. The microfilament was used to introduce the micropuncture sheath, which the was used to introduce and advance a long hydrophylic guidewire into the inferior vena cava. A 9 Fr sheath was introduced over the guidewire. The dilator was removed. The right ventricular pacemaker lead was introduced through the sheath. The sheath was then peeled away. The curved stylet was used to move the lead into the right ventricular outflow tract. The stylet was then replaced with a straight stylet and the lead was moved into a stable position on the right ventricular septum. Adequate sensing and pacing threshold was confirmed. The active fixation mechanism was then deployed. Stable signal and pacing threshold was noted, with decrease in pacing impedance. No extracardiac stimulation was noted with high output pacing. The lead was then anchored to the subcutaneous tissue with 2-0 nonabsorbable suture, using the anchoring sleeve near the point of entry to the vein. Another 9 Fr sheath was introduced over the retained guidewire. The dilator was removed. The right atrial pacemaker lead was introduced through the sheath. The sheath was then peeled away. A straight stylet was used to move the lead into the right atrium. The stylet was then replaced with a curved J stylet and the lead was moved into a stable position in the right atrial appendage. Adequate sensing and pacing threshold was confirmed. The active fixation mechanism was then deployed. Stable signal and pacing threshold was noted, with decrease in pacing impedance. No extracardiac stimulation was noted with high output pacing. The lead was then anchored to the subcutaneous tissue with 2-0 nonabsorbable suture, using the anchoring sleeve near the point of entry to the vein. The retained guidewire was removed. The pacemaker generator was attached to the leads and sealed in the prescribed manner. The wound was flushed with Ancef . The generator was placed into the pocket and tied to the pectoral fascia using 2-0 nonabsorbable suture. Stable lead positions were confirmed with fluoroscopy. The wound was closed using a double layer of 2-0 absorbable Vicryl sutures, followed by a subcuticular running suture with 4-0 Monocryl, then Exofin. A sterile, then a pressure dressing was applied. The device was then interrogated and programmed as detailed below. Device Type SN Location Medtronic Advisa DR DDD pacemaker [id number] Left infraclavicular Lead Position Type SN P/R Threshold Impedance RA RA appendage Medtronic 5076-52 [id number] 3.5 mV 0.8 V @ 0.5 ms 614 Ohm RV RV septum Medtronic 5076-58 [id number] 4.2 mV 1.2 V @ 0.5 ms 1410 Ohm Bradycardia settings MVPR 60/110 The implanted system is MRI conditional. Anesthesia: moderate conscious sedation Surgeon / Physician: Danny Gottlieb Oncology Physician: other (Wilda) Estimated blood loss: minimal Specimens: none sent Condition: stable Disposition: floor - Medications / Follow-up
--- NOTE | 2017-02-08 13:34 | XRay Report ---
XR chest 1V portable Indication: Lead placement Comparison: Chest x-ray 02/08/2017 Technique: Portable AP chest was performed. Findings: Heart size is normal. Pulmonary vasculature appears within normal limits. No significant abnormality of the mediastinal contours demonstrated. Lungs demonstrate interstitial stranding in the lung bases stable compared to prior study with improved visualization of left hemidiaphragm.. Bones and soft tissues demonstrate no significant abnormalities. Interval placement of cardiac pacemaker has a currently is terminating in the region of the right atrium and right ventricular apex. Impression: 1. Stable appearance of the lung bases with some improvement in the left lung base suggesting improving atelectasis. 2. Interval placement of cardiac pacemaker. 02/08/2017 1:30 PM PROCEDURE INTERPRETED AT [facility] DEPARTMENT OF RADIOLOGY Final Report Signed by: Dr. Nick Lima
[2017-02-08] MEDS ORDERED: LORATADINE 10 MG TABLET PO PRN (14:30)
[2017-02-08 16:55] LABS: Apearance,Urine Slightly Hazy (Clear); Bilirubin,Urine Negative (Negative); Blood, Urine Negative (Negative); Glucose,Urine (UA) Negative (Negative); Ketones,Urine Negative (Negative); Mucus,Urine Occasional /LPF (Occasional); Nitrite,Urine Negative (Negative); Protein,Urine Negative; RBC,Urine 6 /HPF (0-4); Squamous Epithelial Cell,Urine Occasional /HPF (0-10); Urine Color Yellow (Yellow); Urine Specific Gravity 1.014 (1.001-1.035); Urine Urobilinogen < 2.0 EU/DL (0.2-1.0); WBC,Urine 73 /HPF (0-6)
[2017-02-08] MEDS: WARFARIN 3 MG TABLET PO SCH (17:51)
[2017-02-08] MEDS ORDERED: WARFARIN 2.5 MG TABLET PO SCH (18:00)
[2017-02-08] MEDS: SOTALOL 80 MG TABLET PO SCH (21:05)
[2017-02-08] MEDS: AZELASTINE NASAL 137 MCG/SPRAY 30 ML BOTTLE BOTH NARES SCH (22:00)
[2017-02-09 04:31] LABS: Basophils % 0.1 % (0.0-0.8); Hematocrit 31.9 VOL% (42.0-52.0); Hemoglobin 10.5 GM/DL (14.0-18.0); Immature Granulocytes % 0.5 %; Immature Granulocytes Absolute 0.04 #; Lymphocytes # 1.1 10*3/uL (1.4-4.0); Lymphocytes % 14.5 % (21.2-54.2); Mean Corpuscular HGB Conc 32.9 GM/DL (32-36); Mean Corpuscular Hemoglobin 30 PG (27-34); Mean Corpuscular Volume 92.2 FL (87-102); Mean Platelet Volume 11.1 FL (9.6-12.0); Monocytes # 0.6 10*3/uL (0.11-0.8); Monocytes % 7.4 % (1.7-12.7); Neutrophils # 5.9 10*3/uL (1.4-7.4); Neutrophils % 77.5 % (38.7-73.9); Platelet Count 119 T/CUMM (130-400); Red Blood Count 3.46 MC/CUMM (3.8-5.5); Red Cell Distribution Width 13.5 % (9.3-17.3); White Blood Count 7.7 T/CUMM (4-12)
[2017-02-09 04:40] LABS: INR 1.4; PT Patient Result 15.2 SECS
[2017-02-09 05:06] LABS: Magnesium 2.1 MG/DL (1.8-2.4); Osmolality,Calculated 289.8 MOS/KG (273-304); Potassium 3.9 MMOL/L (3.5-5.1)
--- NOTE | 2017-02-09 07:22 | EKG Report ---
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
--- NOTE | 2017-02-09 08:20 | XRay Report ---
XR chest 2V Indication: Lead placement Comparison: Chest x-ray 02/08/2017. Technique: PA and lateral chest x-ray was performed. Findings: Termination of pacemaker leads is stable compared to previous study. Generator demonstrates no significant change in position. Chest is otherwise stable appearance of peripheral scarring noted bilaterally and emphysematous changes suggested. Impression: 1. Stable chest. 02/09/2017 8:17 AM PROCEDURE INTERPRETED AT [facility] DEPARTMENT OF RADIOLOGY Final Report Signed by: Dr. Nick Lima
[2017-02-09] MEDS: SULFAMETHOX/TRIMETHOPRIM 800-160 MG TABLET PO SCH ×2 (09:02→21:35)
[2017-02-09] MEDS: SOTALOL 80 MG TABLET PO SCH ×2 (09:02→21:35)
[2017-02-09] MEDS: PANTOPRAZOLE 40 MG TABLET PO SCH (09:02)
--- NOTE | 2017-02-09 09:46 | Discharge Summary ---
Hospital Course - Hospital Course Hospital Course: Mr. aMrt is an 89-year-old male, who was admitted with recurrent presyncope , symptomatic tachybradycardia syndrome documented on a 30 day event recorder. A dual-chamber pacemaker was implanted 02/08/2017. There were no complications. He also had asymptomatic UTI, which was treated with Septra. Culture is pending. He remained dizzy, weak after the pacemaker implant, with normal blood pressure and no orthostatic issues. We will obtain PT evaluation and depending on the results, he will be discharged home or rehab. -Post pacemaker implant activity limitations and implant site care were discussed. Keep the occlusive dressing in place and implant site dry for 1 week , wear the sling all time for 1 week -Follow-up with pacemaker/wound check with Dr. Gottlieb, in 1 week. -Septra 1 tablet twice daily for 5 days for UTI. Follow-up cultures. -Continue Coumadin. INR was subtherapeutic at the time of the pacemaker implant. No atrial fibrillation since the pacemaker was implanted, I will keep the same Coumadin dose for now as he is going to be on antibiotics for the next few days. Follow-up INR -Digoxin was stopped. Preserved ejection fraction, no atrial tachyarrhythmia/ RVR since the pacemaker implant. 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 (4) PVC (premature ventricular contraction) Status: Acute (5) SVT (supraventricular tachycardia) Status: Resolved (6) Renal insufficiency Status: Chronic (7) Kidney stone Status: Acute (8) Ureteral calculus Status: Acute (9) Near syncope Status: Acute (10) Advanced age Status: Chronic Discharge Plan - Discharge Data Disposition: Disch To Home/Self Care Condition at Discharge: Stable Discharge Diet: advance to your usual diet Activity: resume usual activities as tolerated Hygiene: keep area(s) dry Weight Bearing at Discharge: full weight bearing Driving: not until seen by doctor Contact your physician if you experience:: fever over 101, Difficulty voiding, Redness or swelling, Nausea/Vomiting, Shortness of breath, Bleeding, pain uncontrolled by pain medications Wound / Dressing Care Instructions: Keep the implant site dry and the dressing in place for 1 week. Wear the sling all time for 1 week. - Discharge Medications New oxyCODONE/ACETAMINOPHEN 5-325 [Percocet 5-325] 1 tablet PO Q4H PRN #10 tablet PRN Reason: Pain Moderate (4-7) Sulfameth/Trimeth 800-160 Tab [Bactrim DS Tab] 1 tablet PO BID #9 tablet Continue Warfarin Sodium 2.5 mg PO BEDTIME Fluticasone 50 Mcg Nasal [place] [Flonase Nasal [place]] 2 spray BOTH NARES QAM Azelastine Nasal 137 Mcg/[place] [Astelin Nasal [place]] 2 spray BOTH NARES BID Sotalol [Betapace] 40 mg PO BID #60 tablet Loratadine [Claritin] 10 mg PO DAILY PRN PRN Reason: Allergy Symptoms Discontinued Digoxin [Digitek] 125 mcg PO DAILY - Follow Up or Referral Follow Up: Danny Gottlieb MD [Physician] - 1 Week - Forms/Instructions Exam - Constitutional Vitals: Period Temp Pulse Resp BP Sys/[place] Pulse Ox Last 24 Hr 97.1 F-98.5 F 56-66 16-20 112-149/55-70 92-100 General appearance: normal weight, no acute distress - Head Head exam: Present: normal inspection, normocephalic - Eye Eye exam: Absent: conjunctival injection, scleral icterus Pupils: Absent: dilated - ENT ENT exam: Present: normal external ear exam - Neck Neck exam: Present: normal inspection - Respiratory Respiratory exam: Present: clear to auscultation bilaterally - Cardiovascular Cardiovascular exam: Present: regular rate and rhythm - GI/Abdominal GI/Abdominal exam: Present: normal bowel sounds. Absent: distended - Extremities Exam Extremities exam: Present: normal inspection, normal capillary refill. Absent: edema - Back Exam Back exam: Present: normal inspection - Neurological Exam Neurological exam: Present: alert, other (KETCHIKAN) - Psychiatric Psychiatric exam: Present: normal affect, normal mood - Skin Skin exam: Present: normal color, warm. Absent: cyanosis Discharge Results Procedures and tests throughout hospitalization: Pending Orders 02/08/17 Urine Culture Routine Labs on day of discharge: Labs from last 24 hours 02/09/17 02/09/17 02/09/17 04:03 04:03 04:03 WBC 7.7 D RBC 3.46 L Hgb 10.5 L Hct 31.9 L MCV 92.2 MCH 30 MCHC 32.9 RDW 13.5 Plt Count 119 L MPV 11.1 Neut % (Auto) 77.5 H Lymph % (Auto) 14.5 L [place] % (Auto) 7.4 Eos % (Auto) 0.0 Baso % (Auto) 0.1 Neut # (Auto) 5.9 Lymph # (Auto) 1.1 L [place] # (Auto) 0.6 Eos # (Auto) 0.0 Baso # (Auto) 0.0 Immature Gran % 0.5 Nucleated RBC % 0.0 Immature Gran # 0.04 Nucleated RBCs # 0.00 INR 1.4 PT Patient/Control Mix 15.2 Sodium 144 Potassium 3.9 Chloride 106 Carbon Dioxide 28 Anion Gap 13.9 BUN 24 H Creatinine 1.60 H GFR Calculation 45 BUN/Creatinine Ratio 15.00 Glucose 93 Calculated Osmolality 289.8 Calcium 8.0 L Magnesium 2.1 Total Bilirubin AST ALT Alkaline Phosphatase Total Protein Albumin Globulin Albumin/Globulin Ratio Urine Color Urine Appearance Urine pH Ur Specific [place] Urine Protein Urine Glucose (UA) Urine Ketones Urine Blood Urine Nitrate Urine Bilirubin Urine Urobilinogen Urine Leukocytes Urine RBC Urine WBC Ur Squamous Epith Cells Urine Mucus Ur Culture Indicated? 02/08/17 02/08/17 02/08/17 16:35 10:05 10:05 WBC RBC Hgb Hct MCV MCH MCHC RDW Plt Count MPV Neut % (Auto) Lymph % (Auto) [place] % (Auto) Eos % (Auto) Baso % (Auto) Neut # (Auto) Lymph # (Auto) [place] # (Auto) Eos # (Auto) Baso # (Auto) Immature Gran % Nucleated RBC % Immature Gran # Nucleated RBCs # INR 1.3 PT Patient/Control Mix 13.6 Sodium 141 Potassium 4.3 Chloride 104 Carbon Dioxide 28 Anion Gap 13.3 BUN 22 H Creatinine 1.80 H GFR Calculation 39 BUN/Creatinine Ratio 12.00 Glucose 137 H Calculated Osmolality 285.3 Calcium 8.1 L Magnesium Total Bilirubin < 0.39 AST 13 ALT 14 L Alkaline Phosphatase 53 Total Protein 5.3 L Albumin 2.4 L Globulin 2.9 Albumin/Globulin Ratio 0.8 L Urine Color Yellow Urine Appearance Slightly hazy Urine pH 5.0 Ur Specific [place] 1.014 Urine Protein Negative Urine Glucose (UA) Negative Urine Ketones Negative Urine Blood Negative Urine Nitrate Negative Urine Bilirubin Negative Urine Urobilinogen < 2.0 H Urine Leukocytes Moderate H Urine RBC 6 Urine WBC 73 Ur Squamous Epith Cells Occasional Urine Mucus Occasional Ur Culture Indicated? Results to follow 02/08/17 10:05 WBC 11.4 RBC 3.72 L Hgb 11.5 L Hct 34.7 L MCV 93.3 MCH 31 MCHC 33.1 RDW 13.7 Plt Count 130 MPV 10.6 Neut % (Auto) 85.8 H Lymph % (Auto) 7.6 L [place] % (Auto) 6.1 Eos % (Auto) 0.0 Baso % (Auto) 0.1 Neut # (Auto) 9.7 H Lymph # (Auto) 0.9 L [place] # (Auto) 0.7 Eos # (Auto) 0.0 Baso # (Auto) 0.0 Immature Gran % 0.4 Nucleated RBC % 0.0 Immature Gran # 0.05 Nucleated RBCs # 0.00 INR PT Patient/Control Mix Sodium Potassium Chloride Carbon Dioxide Anion Gap BUN Creatinine GFR Calculation BUN/Creatinine Ratio Glucose Calculated Osmolality Calcium Magnesium Total Bilirubin AST ALT Alkaline Phosphatase Total Protein Albumin Globulin Albumin/Globulin Ratio Urine Color Urine Appearance Urine pH Ur Specific [place] Urine Protein Urine Glucose (UA) Urine Ketones Urine Blood Urine Nitrate Urine Bilirubin Urine Urobilinogen Urine Leukocytes Urine RBC Urine WBC Ur Squamous Epith Cells Urine Mucus Ur Culture Indicated? - Imaging and Cardiology Cardiology Procedure: image reviewed by me, report reviewed by me DS: Provider Date of admission: 02/08/17 09:45 Primary care physician: Chester Gordillo Attending physician on admission: Danny Gottlieb MD Discharging clinician: Danny Gottlieb MD Expected date of discharge: 02/09/17
--- NOTE | 2017-02-09 10:47 | Case Mgmt Physician Query Form ---
TB Signs and Symptoms Screening ([place]) INSTRUCTIONS: To be completed annually on residents/staff with a significant Tuberculin Skin Test (TST) upon admission/hire or a prior significant TST. To be completed on all staff at hire. Please respond to each listed symptom with an (X) in either the "YES" or "NO" box. Do you currently have any of the following symptoms: YES NO ( ) (X) A cough If yes, is it: ( ) Productive ( ) Non- productive ( ) (X) Hemoptysis (spitting up blood) ( ) (X) Chest pains ( ) (X) Weight Loss ( ) (X) Fever ( ) (X) Night Sweats (X) ( ) Weakness ( ) (X) Loss of Appetite ( ) (X) Difficulty Breathing If you answered YES" to any of the above questions, how long have symptoms been present? Feeling weak for the past couple of days (due to UTI, bradycardia, sick sinus syndrome, now S/P dual chamber pacemaker and on ABX for UTI) Comments: If you have any questions, please contact me. thank you, Yoel Carrillo RN Case Manager O:[phone] P: [phone] F: [phone] [email or web address]
[2017-02-09] MEDS ORDERED: TUBERCULIN SKIN TEST 0.1 ML SYRINGE INTRADERM ONE (11:00)
[2017-02-09] MEDS: FLUTICASONE 50 MCG NASAL SPRAY 16 GM BOTTLE BOTH NARES SCH (11:14)
[2017-02-09] MEDS: AZELASTINE NASAL 137 MCG/SPRAY 30 ML BOTTLE BOTH NARES SCH ×2 (11:14→21:35)
[2017-02-09] MEDS: WARFARIN 3 MG TABLET PO SCH (17:08)
[2017-02-10 08:24] VITALS: BP 136/65
[2017-02-10] MEDS: SOTALOL 80 MG TABLET PO SCH (08:29)
[2017-02-10] MEDS: AZELASTINE NASAL 137 MCG/SPRAY 30 ML BOTTLE BOTH NARES SCH (08:30)
[2017-02-10] MEDS: FLUTICASONE 50 MCG NASAL SPRAY 16 GM BOTTLE BOTH NARES SCH (08:30)
[2017-02-10] MEDS: PANTOPRAZOLE 40 MG TABLET PO SCH (08:30)
[2017-02-10] MEDS: SULFAMETHOX/TRIMETHOPRIM 800-160 MG TABLET PO SCH (08:30)
--- NOTE | 2017-02-10 09:59 | Cardiology Progress Note ---
Assessment and Plan - Time spent with patient Time spent with patient: Less than 30 minutes (1) Sick sinus syndrome Status: Resolved Assessment and plan: See plan of care listed below. Current Visit: Yes (2) Paroxysmal atrial fibrillation Status: Chronic Assessment and plan: See plan of care listed below. 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 Current Visit: No (4) Chronic anticoagulation Status: Chronic Assessment and plan: See plan of care listed below. Current Visit: No (5) Renal insufficiency Status: Chronic Assessment and plan: See plan of care listed below. Current Visit: No (6) Advanced age Status: Chronic Assessment and plan: See plan of care listed below. Current Visit: Yes Cardiology - PN: Subj Interval history: Reel Slitter: Dr. Foster PCP: none Mr. Mart is a 89 year old male with a history of paroxysmal atrial fibrillation, paroxysmal SVT, orthostatic hypotension, history of DVT on chronic anticoagulation with Coumadin, pre-syncope, renal insufficiency, severely hearing impaired with bilateral hearing aids. Prior to arrival, he had been wearing a holter monitor for the past 30 days and this morning, he was noted to have a 7.[address] Foster notified the patient and his family and he was instructed to report to the emergency room for further evaluation. He was admitted to cardiology service for further evaluation of sick sinus syndrome and underwent placement of a dual-chamber pacemaker by Dr. Gottlieb on 02/08/2017. He was also found to have a urinary tract infection during admission and was started on Bactrim. The morning after his procedure, he continued to have dizziness. He was kept an extra night and referred to rehab prior to going home. This morning he will be transferred to [facility]. He will follow-up with Dr. Gottlieb in 1 week. ASSESSMENT/PLAN: 1. SICK SINUS SYNDROME-now status post dual-chamber pacemaker. 2. PAROXYSMAL ATRIAL FIBRILLATION -status post dual-chamber pacemaker. Sotalol has been resumed at 40 mg p.o. twice daily due to impaired renal function. 3. PAROXYSMAL SVT - Has been on Digoxin and Sotalol. 4. HISTORY OF DVT - On chronic anticoagulation with coumadin. 5. CHRONIC ANTICOAGULATION - On Coumadin 2.5mg PO QHS. Will continue coumadin and proceed with dual chamber pacemaker today. 6. RENAL INSUFFICIENCY - Chronic, BMP pending. Creatinine from 01/30/17 1.8 with GFR 39. Patient is also incontinent of urine. Will check urinalysis. 7. ORTHOSTATIC HYPOTENSION - Has been on Florinef which seems to have improved his symptoms; however, he had worsening BLE edema. Florinef was d/c'd and he was started on Midodrine. 8. ADVANCED AGE Exam (Progress Note) - Constitutional Vitals: Period Temp Pulse Resp BP Sys/[place] Pulse Ox Last 24 Hr 97.4 F-98.3 F 58-67 16-20 109-136/52-83 90-100 Exam: General appearance: Pleasant and cooperative. Normal weight, no acute distress. - Head Head exam: Present: normal inspection, normocephalic, atraumatic. Absent: hematoma, laceration - Eye Eye exam: Present: EOMI. Absent: conjunctival injection, nystagmus, periorbital swelling, scleral icterus, laceration to eyelids Pupils: Present: PERRL. Absent: constricted, dilated, fixed, irregular, unequal - ENT ENT exam: Present: normal exam, normal external ear exam, very hard of hearing. Bilateral hearing aids present. - Neck Neck exam: Present: normal inspection. Absent: lymphadenopathy, meningismus, tenderness, thyromegaly - Respiratory Respiratory exam: Present: clear to auscultation bilaterally. Absent: accessory muscle use, chest wall tenderness - Cardiovascular Cardiovascular exam: Present: regular rate and rhythm. Absent: carotid bruit, gallop, JVD, rubs, murmur - GI/Abdominal GI/Abdominal exam: Present: normal bowel sounds, soft. Absent: distended, firm , guarding, hernia, mass, tenderness, rebound. - Extremities Exam Extremities exam: Present: normal inspection, normal capillary refill. Upper extremity pulses 2+. Lower extremity pulses 2+. 3+ pitting edema to BLE. Absent : calf tenderness -Musculoskeletal Exam Musculoskeletal: Present: No Fluid Collection, No Pain, Normal Range of Motion - Back Exam Back exam: Present: normal inspection. Absent: muscle spasm, vertebral tenderness - Neurological Exam Neurological exam: Present: alert, oriented X3, grossly intact without resting or essential tremor - Psychiatric Psychiatric exam: Present: normal affect, normal mood - Skin Skin exam: Present: normal color, warm, dry, intact. Left chest wall dressing dry and intact. No redness, hematoma, or bleeding. Absent: cyanosis, diaphoretic, rash, urticaria Result/EKG - Labs CBC & BMP: 02/09/17 04:03 02/09/17 04:03 Lab Results: I have reviewed the past 24 hour labs - EKG EKG results: interpreted by me, sinus rhythm (with atrial pacing and occasional PAC) Quality Measures - VTE Contraindication to Pharmacological VTE Prophylaxis: High Risk of Bleeding Specialty Discharge - Follow Up or Referrals Follow up with: Danny Gottlieb MD [Physician] - 02/17/17 10:40 am (Pt needs to bring meds and insurance cards to appt.)
== END 2017-02-10 11:17 | DRG 243 ==
LOC: N.TELES 09:15
PROVIDERS: ADMIT Internal Medicine Clinical Cardiac Electrophysiology; ATTEND Internal Medicine Clinical Cardiac Electrophysiology

== ENCOUNTER 2017-03-22 15:18 | Observation (INO) ==
[2017-03-22] MEDS ORDERED: DOCUSATE SODIUM 100 MG CAPSULE PO PRN (15:28)
[2017-03-22] MEDS ORDERED: ONDANSETRON 4 MG/2 ML VIAL IV PRN (15:28)
[2017-03-22] MEDS ORDERED: MAGNESIUM SULF RIDER 2 GM in PREMIX 1 EACH IV PRN (15:28)
[2017-03-22] MEDS ORDERED: ACETAMINOPHEN 325 MG TABLET PO PRN (15:28)
[2017-03-22] MEDS ORDERED: MAGNESIUM SULF RIDER 4 GM in PREMIX 1 EACH IV PRN (15:28)
[2017-03-22] MEDS ORDERED: ZALEPLON 5 MG CAPSULE PO PRN (15:28)
--- NOTE | 2017-03-22 15:56 | Cardiology History & Physical ---
Assessment and Plan - Time spent with patient Time spent with patient: Greater than 30 minutes (due to assessment, plan, and documentation) (1) Dizziness Status: Acute Assessment and plan: See plan of care listed below. (2) Vertigo Status: Acute Assessment and plan: See plan of care listed below. (3) Hx of dual-chamber pacemaker implant Status: Chronic Assessment and plan: See plan of care listed below. (4) Sick sinus syndrome Status: Resolved Assessment and plan: See plan of care listed below. (5) Paroxysmal atrial fibrillation Status: Chronic Assessment and plan: See plan of care listed below. (6) Chronic anticoagulation Status: Chronic Assessment and plan: See plan of care listed below. (7) Advanced age Status: Chronic Assessment and plan: See plan of care listed below. History of Present Illness Chief complaint: Suspected adrenal insufficiency, dizziness History of present illness: Street Openings Inspector: Dr. Foster PCP: Dr. Gordillo or Dr. Higginbotham Mr. Mart is a 89 year old male with a history of paroxysmal atrial fibrillation, chronic anticoagulation, pre-syncope, sick sinus syndrome status post dual-chamber pacemaker implantation, paroxysmal SVT, orthostatic hypotension, and history of DVT. He is a lifetime nonsmoker. Recently, he has had ongoing dizziness, presyncope, and he was placed on a 30 day event monitor which demonstrated >7 second pause. He was subsequently directed to the hospital and underwent DDD PM implantation 02/[address] Gottlieb for SSS, PAF ([employer] MR Max). He has also been on Sotalol and has had no bleeding issues on Coumadin, no melena or BRBPR. He has recently been seen by Dr. Barlow for complaints of dizziness. He was started on Vitamin B12, Vitamin D, and prednisone. He also saw Dr. Armendariz and he was not felt to have "inner ear." The patient was recently seen in Dr. Foster's clinic and believes he is walking worse and worse and continues to have dizziness. It seems to be more vertigo than lightheadedness. He denies cheat pain. He does have significant dyspnea on exertion which has been going on for a number of years, although it is progressively worsening. Dr. Barlow has conferred care with Dr. Foster and it was felt Mr. Mart would benefit from overnight admission to test for adrenal insufficiency with cosyntropin stimulation test to measure how well the adrenal glands respond to the hormone ACTH. ASSESSMENT/PLAN: 1. VERTIGO/DIZZINESS - Patient is admitted to the hospital for cosyntropin stimulation testing to evaluate for adrenal insufficiency. 2. S/P DCPM IMPLANTATION - Done in February [address] Gottlieb. Device was last checked on 03/13/17 and he was noted to have 3 hours of PAF on 03/02, none since. Average ventricular rate in AF was 110 bpm. 3. SICK SINUS SYNDROME - S/p dual chamber pacemaker implantation. 4. PAROXYSMAL ATRIAL FIBRILLATION - Continue Sotalol, Coumadin. Will continue telemetry monitoring. 5. CHRONIC ANTICOAGULATION - Monitor PT/INR. Continue anticoagulation. 6. ADVANCED AGE - Chronic. Uses cane for ambulation. Home Medications Medication Instructions Recorded Confirmed Type Azelastine Nasal 137 Mcg/[place] 2 spray BOTH NARES BID 01/31/15 02/08/17 History [Astelin Nasal [place]] Fluticasone 50 Mcg Nasal [place] 2 spray BOTH [place]AR[place] QAM 01/31/15 02/08/17 History [Flonase Nasal [place]] Warfarin Sodium 2.5 mg PO BEDTIME 01/31/15 02/08/17 History Loratadine [Claritin] 10 mg PO DAILY PRN 01/26/17 02/08/17 History Sotalol [Betapace] 40 mg PO BID #60 tablet 02/09/17 Rx Sulfameth/Trimeth 800-160 Tab 1 tablet PO BID #9 tablet 02/09/17 Rx [Bactrim DS Tab] Allergies Allergy/AdvReac Type Severity Reaction Status Date / Time No Known Allergies Allergy Verified 02/02/17 10:30 Review of systems: - Constitutional: Present: As per HPI. Absent: anorexia, chills, daytime sleepiness, excessive sweating, fever(s), frequent falls, headache(s), increased appetite, lethargy, malaise, night sweats, stops breathing during sleep, weakness, weight gain, weight loss, fatigue. - EENT Eyes: Present: As per HPI. Absent: blurry vision, diplopia, loss of vision Ears: Present: As per HPI. Absent: decreased hearing, ear discharge, ear pain Nose, mouth and throat: Present: As per HPI. Absent: dysphagia, epistaxis, headache(s), hoarseness, lip swelling, nasal congestion, neck mass, neck pain, sinus pressure, sore throat, throat swelling, tongue swelling, vertigo - Cardiovascular: Present:dyspnea on exertion, as per HPI. Absent: chest pain at rest, chest pain with activity, dyspnea, edema, claudication, diaphoresis, radiating jaw, neck or arm pain, lightheadedness, orthopnea, palpitations, PND - Respiratory: Present: dyspnea on exertion, as per HPI. Absent: dyspnea, cough , hemoptysis, wheezing, snoring, pain on inspiration - Gastrointestinal: Present: As per HPI. Absent: abdominal pain, bloating, change in bowel habits, constipation, diarrhea, heartburn, hematemesis, hematochezia, loose stools, melena, nausea, vomiting - Genitourinary: Present: As per HPI. Absent: difficulty urinating, dysuria, flank pain, hematuria, nocturia, urinary frequency, urinary incontinence - Musculoskeletal: Present: As per HPI. Absent: arthralgias, back pain, joint swelling, limited range of motion, muscle cramps, muscle weakness, myalgias - Neurological: Present: dizziness, As per HPI. Absent: abnormal gait, abnormal speech, behavioral changes, confusion, convulsions, disequilibrium, focal weakness, frequent falls, headache(s), memory loss, numbness, paresthesias, radicular pain, syncope, tremor(s) - Psychiatric: Present: As per HPI. Absent: anxiety, confusion, depression, panic attacks - Endocrine: Present: As per HPI. Absent: cold intolerance, fatigue, heat intolerance, polydipsia, polyphagia - Hematologic/Lymphatic: Present: As per HPI. Absent: easy bleeding, easy bruising, lymphadenopathy Medical,Surgical,& Family Hx - Medical History Cardio: History of: Cardiac Dysrhythmia (AFIB ), PVD (DVT) Neurology: No history of: Seizures HEENT: History of: Ear Problem (IROQUOIS), Eye Problem (GLASSES) Rheumatology: History of;: Systemic Lupus Erythematosus Genitourinary: History of: Kidney Stones, Genitourinary Cancer (Prostate cancer) Gastrointestinal: History of: GERD, GI Problems (constipation) Musculoskeletal: History of: Musculoskeletal Problems (left hip need replacement ) Hematology: History of: Blood Transfusion Reaction Other: History of: Cancer (Prostate), Skin Problems (multiple skin cancers) - Surgical History Cardiac Surgeries: Sugical HX of: Cardiac Catheterization Thoracic Surgeries: Surgical HX of;: Lithotripsy HEENT Surgeries: Surgical HX of: Eye Surgery (Bilateral cataracts), Tonsilectomy & Adenoidectomy Abdominal Surgeries: Surgical HX of: Hernia Repair Reproductive Surgeries: Surgical HX of;: Genitourinary Surgery, Prostate Surgery - Family History Family History: Reports;: Family Cancer (Sister), Family Heart Disease, Family Hypertension - Social History Smoking Status: Never smoker Frequency of Alcohol Use: None Type of Drug Use: None Marital Status: Lives With:: Spouse Functional capacity: uses cane/walker Cardiology Physical Exam - Constitutional Exam: General appearance: Pleasant and cooperative. Overweight, no acute distress. Head exam: Present: normal inspection, normocephalic, atraumatic. Absent: hematoma, laceration Eye exam: Present: EOMI. Absent: conjunctival injection, nystagmus, periorbital swelling, scleral icterus, laceration to eyelids Pupils: Present: PERRL. Absent: constricted, dilated, fixed, irregular, unequal ENT exam: Present: normal exam, normal external ear exam Neck exam: Present: normal inspection. Absent: lymphadenopathy, meningismus, tenderness, thyromegaly, carotid bruit Respiratory exam: Present: clear to auscultation bilaterally. Absent: accessory muscle use, chest wall tenderness, rales, rhonchi, wheezing. Cardiovascular exam: Present: regular rate and rhythm. Absent: gallop, JVD, rubs, murmur GI/Abdominal exam: Present: normal bowel sounds, soft. Absent: distended, firm , guarding, hernia, mass, tenderness, rebound. Extremities exam: Present: normal inspection, normal capillary refill. Upper extremity pulses 2+. Lower extremity pulses diminished. Trace BLE edema. Absent : calf tenderness Musculoskeletal: Present: No Fluid Collection, No Pain, Normal Range of Motion, impaired gait, walks with cane. Back exam: Present: normal inspection. Absent: muscle spasm, vertebral tenderness Neurological exam: Present: alert, oriented X3, grossly intact without resting or essential tremor Psychiatric exam: Present: normal affect, normal mood Skin exam: Present: normal color, warm, dry, intact. Absent: cyanosis, diaphoretic, rash, urticaria
--- NOTE | 2017-03-22 16:15 | CT Report ---
Referring physician: Davie Holliday Exam: CT brain without contrast Date: 03/22/2017 Comparison: 02/02/2017 Reason: Confusion, alteration of consciousness Technique: Axial images of the head were obtained without the use of contrast. Total DLP was 1073.10 mGy*cm. Findings: No hydrocephalus or midline shift is present. There is no evidence of an acute infarction, recent intracranial hemorrhage or abnormal mass effect. Diffuse atrophy and cerebral hypodensities with benign calcifications. Arterial calcifications. Postoperative findings in the right globe. The osseous structures appear intact. The mastoid air cells and visualized paranasal sinuses are clear. Impression: No acute intracranial abnormality is identified. Persistent atrophy and microvascular disease. The CT exam was performed using one or more of the following dose reduction techniques: Automated exposure control and adjustment of the mA and/or kV according to patient size. PROCEDURE INTERPRETED AT [facility] DEPARTMENT OF RADIOLOGY Final Report Signed by: Dr. Nisha Daugherty
--- NOTE | 2017-03-22 16:17 | EKG Report ---
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
[2017-03-22 17:12] LABS: Basophils % 0.1 % (0.0-0.8); Eosinophils % 0.2 % (0.00-10.9); Hematocrit 37.6 VOL% (42.0-52.0); Hemoglobin 12.7 GM/DL (14.0-18.0); Immature Granulocytes % 0.9 %; Lymphocytes % 18.1 % (21.2-54.2); Mean Corpuscular HGB Conc 33.8 GM/DL (32-36); Mean Corpuscular Hemoglobin 31 PG (27-34); Mean Corpuscular Volume 92.4 FL (87-102); Mean Platelet Volume 10.1 FL (9.6-12.0); Monocytes # 0.9 10*3/uL (0.11-0.8); Monocytes % 8.2 % (1.7-12.7); Neutrophils # 7.8 10*3/uL (1.4-7.4); Neutrophils % 72.5 % (38.7-73.9); Platelet Count 216 T/CUMM (130-400); Red Blood Count 4.07 MC/CUMM (3.8-5.5); Red Cell Distribution Width 14.9 % (9.3-17.3); White Blood Count 10.8 T/CUMM (4-12)
[2017-03-22] MEDS: HYDROCORTISONE 100 MG VIAL IV SCH ×2 (17:16→17:17)
[2017-03-22 17:56] LABS: Albumin 2.9 G/DL (3.4-5.0); Bilirubin,Total 0.5 MG/DL (0.2-1.0); Osmolality,Calculated 279.8 MOS/KG (273-304); Potassium 4.3 MMOL/L (3.5-5.1); Total Protein 6.1 G/DL (6.4-8.3)
[2017-03-22] MEDS ORDERED: LORATADINE 10 MG TABLET PO PRN (17:57)
[2017-03-22] MEDS: DEXAMETHASONE 10 MG/1 ML VIAL IV SCH (18:38)
[2017-03-22] MEDS: MIDODRINE 5 MG TABLET PO SCH (21:05)
[2017-03-22] MEDS: SOTALOL 80 MG TABLET PO SCH (21:05)
[2017-03-22] MEDS: MECLIZINE 25 MG TABLET PO SCH (21:05)
[2017-03-22] MEDS: AZELASTINE NASAL 137 MCG/SPRAY 30 ML BOTTLE BOTH NARES SCH (21:07)
[2017-03-23] MEDS: DEXAMETHASONE 10 MG/1 ML VIAL IV SCH (01:00)
[2017-03-23 05:28] LABS: Basophils % 0.1 % (0.0-0.8); Hematocrit 35.9 VOL% (42.0-52.0); Hemoglobin 12.1 GM/DL (14.0-18.0); Immature Granulocytes % 0.7 %; Immature Granulocytes Absolute 0.07 #; Lymphocytes # 0.8 10*3/uL (1.4-4.0); Lymphocytes % 8.9 % (21.2-54.2); Mean Corpuscular HGB Conc 33.7 GM/DL (32-36); Mean Corpuscular Hemoglobin 31 PG (27-34); Mean Corpuscular Volume 90.9 FL (87-102); Mean Platelet Volume 10.3 FL (9.6-12.0); Monocytes # 0.1 10*3/uL (0.11-0.8); Monocytes % 1.1 % (1.7-12.7); Neutrophils # 8.4 10*3/uL (1.4-7.4); Neutrophils % 89.2 % (38.7-73.9); Platelet Count 200 T/CUMM (130-400); Red Blood Count 3.95 MC/CUMM (3.8-5.5); Red Cell Distribution Width 14.7 % (9.3-17.3); White Blood Count 9.4 T/CUMM (4-12)
[2017-03-23 05:54] LABS: Albumin 2.5 G/DL (3.4-5.0); Bilirubin,Total 0.5 MG/DL (0.2-1.0); Calcium 8.5 MG/DL (8.5-10.1); Osmolality,Calculated 286.7 MOS/KG (273-304); Potassium 4.8 MMOL/L (3.5-5.1); Total Protein 5.4 G/DL (6.4-8.3)
[2017-03-23] MEDS ORDERED: COSYNTROPIN 0.25 MG VIAL IM ONE (06:00)
[2017-03-23 06:10] LABS: PT Patient Result 67.9 SECS
[2017-03-23 06:12] LABS: INR 5.7
--- NOTE | 2017-03-23 07:15 | EKG Report ---
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
[2017-03-23] MEDS ORDERED: HYDROCORTISONE 100 MG VIAL IV SCH (08:00)
[2017-03-23] MEDS ORDERED: FLUTICASONE 50 MCG NASAL SPRAY 16 GM BOTTLE BOTH NARES SCH (09:00)
[2017-03-23] MEDS ORDERED: PANTOPRAZOLE 40 MG TABLET PO SCH (09:00)
[2017-03-23] MEDS ORDERED: HYDROCORTISONE 10 MG TABLET PO SCH (09:00)
[2017-03-23] MEDS: MECLIZINE 25 MG TABLET PO SCH (10:27)
[2017-03-23] MEDS: SOTALOL 80 MG TABLET PO SCH (10:28)
[2017-03-23] MEDS: MIDODRINE 5 MG TABLET PO SCH (10:29)
--- NOTE | 2017-03-23 10:29 | Discharge Summary ---
Addendum entered and electronically signed by Shayna Rangel NP 03/23/17 11:37 : After discharge note was completed, Mr. Mart had an episode of dizziness and unsteady balance. His nurse was in the room with him at the time and he states if she had not been present to help him stand upright, he would have fallen. His blood pressure was taken standing and was noted to be 107/40. He reports he felt as if the room was spinning. He then lay flat in the bed and reports the "spinning" seemed to improve. Blood pressure was rechecked and noted to be 134/72. Will further discuss with Dr. Holliday prior to discharging patient. 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 Foster PCP: Dr. Gordillo Mr. Mart is a 89 year old male with a history of paroxysmal atrial fibrillation, chronic anticoagulation, pre-syncope, sick sinus syndrome status post dual-chamber pacemaker implantation, paroxysmal SVT, orthostatic hypotension, and history of DVT. He has also been on Sotalol and has had no bleeding issues on Coumadin, no melena or BRBPR. He has recently been seen by Dr. Barlow for complaints of dizziness. He was started on Vitamin B12, Vitamin D, and prednisone. He also saw Dr. Armendariz and he was not felt to have "inner ear." The patient was recently seen in Dr. Foster's clinic and believes he is walking worse and worse and continues to have dizziness. It seems to be more vertigo than lightheadedness. Dr. Barlow has conferred care with Dr. Foster and it was felt Mr. Mart would benefit from overnight admission to test for adrenal insufficiency with cosyntropin stimulation test to measure how well the adrenal glands respond to the hormone ACTH. He has received IV and PO steroids. Blood pressure has improved somewhat with Dexamethasone. Once cortisol response report is back, results will be faxed to Dr. Barlow's office. His INR was 8.0 upon admission, 5.7 today. We will continue to hold his Coumadin for the next 4 days. He will need to have his INR redrawn on MONDAY, March 27, [address] Gordillo's office. Once INR is obtained, resuming Coumadin can be done by Dr. Gordillo's office based on INR. He will need to continue PO steroids as prescribed by Dr. Barlow's clinic. At this time, he has met maximum benefit from hospitalization and will be discharged home in stable condition. - Time spent with patient Time with patient DS: Greater than 30 minutes Diagnosis - Discharge Diagnosis (1) Dizziness Status: Acute (2) Vertigo Status: Acute (3) Hx of dual-chamber pacemaker implant Status: Chronic (4) Sick sinus syndrome Status: Resolved (5) Paroxysmal atrial fibrillation Status: Chronic (6) Chronic anticoagulation Status: Chronic (7) Advanced age Status: Chronic Specialty Discharge - Follow Up or Referrals Follow up with: Chester Gordillo MD [Primary Care Provider] - 03/27/17 (Patient needs to follow up on MONDAY for INR check. His coumadin will be held until INR is repeated and can be resumed at Dr. Gordillo's discretion based upon INR results. ) Melida Barlow M.D. [Physician] - 2 Weeks (Follow up with Dr. Barlow in 1-2 weeks. ) Discharge Plan - Discharge Data Disposition: Disch To Home/Self Care Condition at Discharge: Stable Discharge Diet: heart healthy Activity: resume usual activities as tolerated, ambulate only with your walker ( as long as dizziness is present) Hygiene: no restrictions (Use shower precautions with hand rails/shower chair as long as dizziness is present.) Weight Bearing at Discharge: full weight bearing Contact your physician if you experience:: fever over 101, Difficulty voiding, Nausea/Vomiting, Shortness of breath, Bleeding, pain uncontrolled by pain medications - Discharge Medications Continue Fluticasone 50 Mcg Nasal [place] [Flonase Nasal [place]] 2 spray BOTH NARES QAM Azelastine Nasal 137 Mcg/[place] [Astelin Nasal [place]] 2 spray BOTH NARES BID Sotalol [Betapace] 40 mg PO BID #60 tablet Meclizine [Antivert] 25 mg PO TID Hydrocortisone Tab [Cortef Tab] 10 mg PO DAILY Midodrine HCl 2.5 mg PO TID Loratadine [Claritin] 10 mg PO DAILY PRN PRN Reason: Allergy Symptoms Discontinued Warfarin Sodium 2.5 mg PO BEDTIME - Follow Up or Referral - Forms/Instructions Additional Discharge Instructions: Please fax CT results and hospital lab results to Dr. Barlow's office. Exam - Constitutional Vitals: Period Temp Pulse Resp BP Sys/[place] Pulse Ox Last 24 Hr 97.1 F-97.9 F 60-62 18-18 97-144/49-76 95-99 Exam: General appearance: Pleasant and cooperative. Overweight, no acute distress. Head exam: Present: normal inspection, normocephalic, atraumatic. Absent: hematoma, laceration Eye exam: Present: EOMI. Absent: conjunctival injection, nystagmus, periorbital swelling, scleral icterus, laceration to eyelids Pupils: Present: PERRL. Absent: constricted, dilated, fixed, irregular, unequal ENT exam: Present: normal exam, normal external ear exam Neck exam: Present: normal inspection. Absent: lymphadenopathy, meningismus, tenderness, thyromegaly, carotid bruit Respiratory exam: Present: clear to auscultation bilaterally. Absent: accessory muscle use, chest wall tenderness, rales, rhonchi, wheezing. Cardiovascular exam: Present: regular rate and rhythm. Absent: gallop, JVD, rubs, murmur GI/Abdominal exam: Present: normal bowel sounds, soft. Absent: distended, firm , guarding, hernia, mass, tenderness, rebound. Extremities exam: Present: normal inspection, normal capillary refill. Upper extremity pulses 2+. Lower extremity pulses diminished. Trace BLE edema. Absent : calf tenderness Musculoskeletal: Present: No Fluid Collection, No Pain, Normal Range of Motion, impaired gait, walks with cane. Back exam: Present: normal inspection. Absent: muscle spasm, vertebral tenderness Neurological exam: Present: alert, oriented X3, grossly intact without resting or essential tremor Psychiatric exam: Present: normal affect, normal mood Skin exam: Present: normal color, warm, dry, intact. Absent: cyanosis, diaphoretic, rash, urticaria Discharge Results Procedures and tests throughout hospitalization: Pending Orders 03/23/17 07:23 Adrenocorticotropic Hormone Timed 03/24/17 04:00 Comp Blood Count Auto Diff IN AM 03/25/17 04:00 Cortrosyn Stimulation IN AM Labs on day of discharge: Labs from last 24 hours 03/23/17 03/23/17 03/23/17 06:30 04:51 04:51 WBC RBC Hgb Hct MCV MCH MCHC RDW Plt Count MPV Neut % (Auto) Lymph % (Auto) Pierce % (Auto) Eos % (Auto) Baso % (Auto) Neut # (Auto) Lymph # (Auto) Pierce # (Auto) Eos # (Auto) Baso # (Auto) Immature Gran % Nucleated RBC % Immature Gran # Nucleated RBCs # Immature Plt Fraction INR 5.7 H* PT Patient/Control Mix 67.9 D Sodium 138 Potassium 4.8 Chloride 104 Carbon Dioxide 25 Anion Gap 13.8 BUN 36 H Creatinine 1.40 H GFR Calculation 2 BUN/Creatinine Ratio 25.00 H Glucose 166 H Calculated Osmolality 286.7 Calcium 8.5 Total Bilirubin 0.50 AST 17 ALT 36 Alkaline Phosphatase 52 Total Protein 5.4 L Albumin 2.5 L Globulin 2.9 Albumin/Globulin Ratio 0.8 L Cortisol Response 03/23/17 03/22/17 03/22/17 04:51 16:38 16:38 WBC 9.4 RBC 3.95 Hgb 12.1 L Hct 35.9 L MCV 90.9 MCH 31 MCHC 33.7 RDW 14.7 Plt Count 200 MPV 10.3 Neut % (Auto) 89.2 H Lymph % (Auto) 8.9 L Pierce % (Auto) 1.1 L Eos % (Auto) 0.0 Baso % (Auto) 0.1 Neut # (Auto) 8.4 H Lymph # (Auto) 0.8 L Pierce # (Auto) 0.1 L Eos # (Auto) 0.0 Baso # (Auto) 0.0 Immature Gran % 0.7 Nucleated RBC % 0.0 Immature Gran # 0.07 Nucleated RBCs # 0.00 Immature Plt Fraction 0.0 INR 8.0 H* PT Patient/Control Mix 97.0 D Sodium 137 Potassium 4.3 Chloride 103 Carbon Dioxide 27 Anion Gap 11.3 BUN 32 H Creatinine 1.60 H GFR Calculation 0 BUN/Creatinine Ratio 20.00 Glucose 100 Calculated Osmolality 279.8 Calcium 9.0 Total Bilirubin 0.50 AST 22 ALT 44 Alkaline Phosphatase 62 Total Protein 6.1 L Albumin 2.9 L Globulin 3.2 Albumin/Globulin Ratio 0.9 L Cortisol Response 03/22/17 16:38 WBC 10.8 RBC 4.07 Hgb 12.7 L Hct 37.6 L MCV 92.4 MCH 31 MCHC 33.8 RDW 14.9 Plt Count 216 MPV 10.1 Neut % (Auto) 72.5 Lymph % (Auto) 18.1 L Pierce % (Auto) 8.2 Eos % (Auto) 0.2 Baso % (Auto) 0.1 Neut # (Auto) 7.8 H Lymph # (Auto) 2.0 Pierce # (Auto) 0.9 H Eos # (Auto) 0.0 Baso # (Auto) 0.0 Immature Gran % 0.9 Nucleated RBC % 0.0 Immature Gran # 0.10 Nucleated RBCs # 0.00 Immature Plt Fraction 0.0 INR PT Patient/Control Mix Sodium Potassium Chloride Carbon Dioxide Anion Gap BUN Creatinine GFR Calculation BUN/Creatinine Ratio Glucose Calculated Osmolality Calcium Total Bilirubin AST ALT Alkaline Phosphatase Total Protein Albumin Globulin Albumin/Globulin Ratio Cortisol Response DS: Provider Date of admission: 03/22/17 15:26 Primary care physician: Chester Gordillo, Attending physician on admission: Davie Holliday MD Discharging clinician: LES Perrin Expected date of discharge: 03/23/17
[2017-03-23] MEDS: AZELASTINE NASAL 137 MCG/SPRAY 30 ML BOTTLE BOTH NARES SCH (10:32)
[2017-03-23 12:05] VITALS: BP 117/59
== END 2017-03-23 13:10 | disposition home health service (06) ==
LOC: INTOOBSV 15:26 → N.TELEN 15:32
PROVIDERS: ADMIT Internal Medicine Cardiovascular Disease; ATTEND Internal Medicine Cardiovascular Disease